=== PATIENT | female | born 1965 | race Caucasian/White ===

== ENCOUNTER 2017-09-20 19:24 | Emergency (ER) | payer BC ==
[2016-04-22 11:17] VITALS: Ht 167.6 cm; Wt 56.7 kg
[~2017-09-20] VITALS: Ht 167.6 cm; Wt 56.7 kg
[~2017-09-20 19:24] MED LIST: AMOX-362 PO; DIPH-464 PO; DIPH-740 PO; DOCU-202 PO; DOCU-416 PO; OLAN20TA20 PO; POLY17PO25 PO; [UNRECOGNIZED DRUG - CODE] IM ONLY; [UNRECOGNIZED DRUG - CODE] IM ONLY
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
[2017-09-20] MEDS ORDERED: KETOROLAC 30 MG/ML VIAL IM ONE (20:10)
--- NOTE | 2017-09-20 20:45 | RADIOLOGY IMAGING REPORT ---
FACILITY: [facility] [place] PATIENT NAME: Kay Liu : 1965 MR: [id number] V: [id number] EXAM DATE: ORDERING PHYSICIAN: TEODORA DEVLIN TECHNOLOGIST: Location: [facility] Patient: Kay Liu : 1965 Visit/Account:[id number] Date of Sevice: 09/20/2017 EXAMINATION: AP pelvis with lateral left hip HISTORY: Left upper inner thigh pain. Evaluate for avulsion fracture. COMPARISON: None. FINDINGS: Bones of the left hip demonstrate normal alignment. No evidence of fracture or dislocation. The joint space is preserved. No evidence of any avulsive fracture fragment about the left hip or bony pelvis. Remainder of the bony pelvis appears radiographically intact. Normal alignment at the right hip. IMPRESSION: No acute osseous findings at the left hip or in the bony pelvis. No evidence of an avuls ion fracture. Report Dictated By: Jose Alejandro Gamboa MD at 09/20/2017 8:39 PM Report E-Signed By: Jose Alejandro Gamboa MD at 09/20/2017 8:41 PM WSN:[id number]
[2017-09-20 21:11] VITALS: BP 128/82
== END 2017-09-20 21:16 | disposition home or self-care (01) ==
LOC: ER 19:47
DX: M76.9 Unspecified enthesopathy, lower limb, excluding foot (principal)
CPT/HCPCS: 73502; 99283; J1885

== ENCOUNTER 2017-09-22 10:03 | Emergency (ER) | payer BC ==
[2016-04-22 11:17] VITALS: Ht 167.6 cm; Wt 56.7 kg
[~2017-09-22] VITALS: Ht 167.6 cm; Wt 56.7 kg
[2017-09-22 10:13] VITALS: BP 115/99
[2017-09-22] MEDS ORDERED: KETOROLAC 60 MG/2 ML VIAL IM ONE (10:40)
--- NOTE | 2017-09-22 10:45 | ER Report ---
History and Physical Time Seen By MD: 10:40 Hx. of Stated Complaint: pt reports pain L side under groin radiating down leg HPI/ROS CC: Left upper leg pain HPI: 52-year-old female presents to the emergency department with left upper leg and thigh pain. She is able to ambulate. She was here 2 days ago for the same complaint. She most likely has a tendinitis. She is mentally challenged and will not follow up with her PCP. She is not limping but is ambulating around the emergency department without difficulty. His heart ascertain her actual pain level. She is with minimal communication. In reviewing her old chart her symptoms have not changed from 2 days ago. ROS: 12 point review of systems essentially negative other than what's mentioned in history of present illness. NURSES AND OLD MEDICAL RECORDS: Reviewed PMH: Reviewed SURGICAL HX: Reviewed FAMILY HX: Noncontributory SOCIAL HX: She denies smoking alcohol or illicit drugs. VITAL SIGNS: Reviewed CONSTITUTIONAL: 52-year-old female in minimal distress. PHYSICAL EXAM: HEENT: Pupils equal round reactive to light and accommodate, EOMI, tympanic membranes pearly white umbo present with good light reflex. Lips dry mucous membranes moist gums nonbleeding uvula midline and rises equally with phonation, oropharynx noninjected, teeth intact. NECK: Neck supple, thyroid not appreciated, anterior and posterior cervical lymphadenopathy not appreciated. Trachea midline and rises equally with phonation. CARDIAC: S1-S2 regular rate rhythm no murmurs rubs or gallops. LUNGS: Lungs clear bilaterally posteriorly in all waldrop. Good air movement. ABDOMEN: Abdomen soft, nondistended, bowel sounds active in all 4 quadrants, no bruits noted, no CVA tenderness. MUSCULOSKELETAL: Strength 5 out of 5 x 4 extremities, no deformities noted. Tenderness left inner thigh and groin area. No bruising ecchymosis, deformity, skin abscess. NEUROLOGIC: Patient alert and oriented by 3 Allergies: Coded Allergies: citric acid (Unverified Allergy, Intermediate, HIVES, 09/20/17) Sulfa (Sulfonamide Antibiotics) (Verified Allergy, Unknown, 09/20/17) codeine (Unverified Allergy, Unknown, GI DISTRESS, 09/20/17) fluoxetine HCl (Verified Allergy, Unknown, 09/20/17) Home Meds Discontinued Reported Medications Docusate Sodium (DOCUSATE SODIUM) 100 Mg Capsule, 100 MG PO QDAY, CAPSULE 04/27/16 Risperidone (RISPERDAL CONSTA) 37.5 Mg/2 Ml/Syr Syr, 37.5 MG IM ONLY Q2WK, SYR 04/27/16 Discontinued Scripts Amoxicillin (AMOXICILLIN) 500 Mg Capsule, 1 CAP PO BID, #10 CAPSULE 0 Refills Prov:MACKENZIEBELLA MD 01/04/17 Hx Smoking: Yes Smoking Status: Former Smoker, Light Tobacco Smoker Exposure to Second Hand Smoke?: Yes Hx Substance Use Disorder: No Hx Alcohol Use: Yes Constitutional Vital Sign - Last 24 Hours 09/22/17 09/22/17 09/22/17 09/22/17 10:03 10:09 10:10 10:13 Temp 98.1 Pulse ??? 106 Resp 18 B/P (MAP) 201/178 201/178 (186) 115/99 (104) Pulse Ox 96 O2 Delivery Room Air 09/22/17 09/22/17 10:18 10:33 Pulse 119 ??? Pulse Ox 95 Medical Decision Making ED Course/Re-evaluation ED Course Patient received Toradol 60 mg IM. No complications noted. Patient will be discharged to home. Re-evaluation Medical decision-making includes but not excluded to contusion, fracture, dislocation, cellulitis, abscess, pulled muscle, partial muscle tear, complete muscle tear. Decision to Disposition Date: Sep 22, 2017 Decision to Disposition Time: 11:11 Depart Departure Latest Vital Signs Vital Signs Date Time Temp Pulse Resp B/P (MAP) Pulse Ox O2 Delivery O2 Flow Rate FiO2 09/22/17 10:33 ??? 09/22/17 10:18 95 09/22/17 10:13 115/99 (104) 09/22/17 10:09 98.1 18 Room Air Impression: Primary Impression: Tendinitis Condition: Improved Disposition: HOME OR SELF-CARE New Scripts No Active Prescriptions or Reported Meds Patient Instructions: Muscle Strain (ED) Additional Instructions: Follow-up with the regular physician. I and the staff wanted to thank you for allowing us to take care of your needs today in the emergency department at [facility]. We have tried to answer all of your questions and concerns. Please feel free to return to the emergency department for any further concerns or unanswered questions. ROSEY GÓMEZ MD Sep 22, 2017 10:45
== END 2017-09-22 11:20 | disposition home or self-care (01) ==
LOC: ER 10:11
DX: M76.9 Unspecified enthesopathy, lower limb, excluding foot (principal)
CPT/HCPCS: 96372; 99283; J1885

== ENCOUNTER 2017-09-24 20:25 | Emergency (ER) | payer BC ==
[2016-04-22 11:17] VITALS: Ht 167.6 cm; Wt 56.7 kg
[~2017-09-24] VITALS: Ht 167.6 cm; Wt 56.7 kg
[2017-09-24 20:35] VITALS: BP 120/84
--- NOTE | 2017-09-24 20:35 | ER Report ---
History and Physical Time Seen By MD: 20:33 HPI/ROS CHIEF COMPLAINT: Requesting Toradol shot HISTORY OF PRESENT ILLNESS: 52-year-old female with paranoid schizophrenia for many years. She has numerous behavioral health admissions here. She was seen here 2 days ago on 09/23/17 and received a Toradol shot for right thigh and leg pain in her groin. She was also seen 2 days before that. Diagnostic left hip x -rays were unremarkable. She has not followed up with primary care. She's not taking [id number]-[id number] medication such as Naprosyn or ibuprofen. Patient has continued symptoms in this area. I am suspicious that is related to her schizophrenia. REVIEW OF SYSTEMS: Respiratory: No cough, no dyspnea. Cardiovascular: No chest pain, no palpitations. Gastrointestinal: No vomiting, no abdominal pain. Musculoskeletal: As above Allergies: Coded Allergies: citric acid (Unverified Allergy, Intermediate, HIVES, 09/20/17) Sulfa (Sulfonamide Antibiotics) (Verified Allergy, Unknown, 09/20/17) codeine (Unverified Allergy, Unknown, GI DISTRESS, 09/20/17) fluoxetine HCl (Verified Allergy, Unknown, 09/20/17) Home Meds Active Scripts Tramadol Hcl (TRAMADOL HCL) 50 Mg Tablet, 1 TAB PO Q6H Y for PAIN, #12 TAB Prov:ROSAMARIA METZ DO 09/24/17 Discontinued Reported Medications Docusate Sodium (DOCUSATE SODIUM) 100 Mg Capsule, 100 MG PO QDAY, CAPSULE 04/27/16 Risperidone (RISPERDAL CONSTA) 37.5 Mg/2 Ml/Syr Syr, 37.5 MG IM ONLY Q2WK, SYR 04/27/16 Discontinued Scripts Amoxicillin (AMOXICILLIN) 500 Mg Capsule, 1 CAP PO BID, #10 CAPSULE 0 Refills Prov:BELLA MANN MD 01/04/17 Past Medical/Surgical History Schizophrenia, chronic paranoid type. Reviewed Nurses Notes: Yes Old Medical Records Reviewed: Yes Hx Smoking: Yes Smoking Status: Former Smoker, Light Tobacco Smoker Exposure to Second Hand Smoke?: Yes Hx Substance Use Disorder: No Hx Alcohol Use: Yes Constitutional Vital Sign - Last 24 Hours 09/24/17 09/24/17 20:35 21:03 Temp 97.7 Pulse 128 117 Resp 22 B/P (MAP) 120/84 Pulse Ox 95 95 O2 Delivery Room Air Physical Exam General appearance: Alert no distress. Vital signs stable, afebrile Respiratory: Chest is non tender, lungs are clear to auscultation. Cardiac: Regular rate and rhythm Extremity: Examination of the left lower extremity reveals no clinical findings. There is no erythema, no warmth, no induration. No lymphadenopathy in the left groin. There is no pain on manipulation of the hip joint, knee or ankle. The left lower extremity is neurovascularly intact. DIFFERENTIAL DIAGNOSIS: After history and physical exam differential diagnosis was considered for sprain, strain, fracture, dislocation, contusion, arthritis, tendinitis, somatization disorder. Medical Decision Making ED Course/Re-evaluation ED Course Patient was admitted to an examination room. H&P was done. The differential diagnoses was considered. On clinical examination. Patient has no acute findings on the left lower extremity that are notable. Passive range of motion. He notes no pain or tenderness. There is no palpable tenderness. The left lower extremity is neurovascularly intact. She is treated with a Toradol injection. She is given samples of Aleve to use for pain relief at home. Decision to Disposition Date: Sep 24, 2017 Decision to Disposition Time: 20:45 Depart Departure Latest Vital Signs Vital Signs Date Time Temp Pulse Resp B/P (MAP) Pulse Ox O2 Delivery O2 Flow Rate FiO2 09/24/17 21:03 117 95 09/24/17 20:35 97.7 22 120/84 Room Air Impression: Primary Impression: Left thigh pain Condition: Improved Disposition: HOME OR SELF-CARE Referrals: LES RON MD Patient Instructions: Leg Pain (ED) Additional Instructions: You can take Aleve/Naprosyn 220 mg 1-2 tablets twice daily with food to achieve pain relief Apply heating pad to the affected area or warm compresses Follow-up with your primary care if unimproved in 3-5 days ROSAMARIA METZ DO Sep 24, 2017 20:35
[2017-09-24] MEDS ORDERED: KETOROLAC 60 MG/2 ML VIAL IM ONE (20:45)
[2017-09-24] MEDS ORDERED: TRAM-420 PO (23:00)
== END 2017-09-24 21:06 | disposition home or self-care (01) ==
LOC: ER 20:27
DX: M79.652 Pain in left thigh (principal)
CPT/HCPCS: 96372; 99282; J1885

== ENCOUNTER 2017-09-24 22:35 | Emergency (ER) | payer BC ==
[2016-04-22 11:17] VITALS: Ht 167.6 cm; Wt 56.7 kg
[~2017-09-24] VITALS: Ht 167.6 cm; Wt 56.7 kg
[2017-09-24 22:43] VITALS: BP 125/90
--- NOTE | 2017-09-24 22:54 | ER Report ---
History and Physical Time Seen By MD: 22:53 Hx. of Stated Complaint: PATIENT IS IN PAIN; PATIENT STATES SHE NEEDS SOMETHING STRONGER FOR THE PAIN; PATIENT WAS SEEN ABOUT TWO HOURS AGO TODAY FOR SAME ISSUE HPI/ROS CHIEF COMPLAINT: Left leg pain HISTORY OF PRESENT ILLNESS: 52-year-old female with a history of schizophrenia presents ambulatory to the ER after just being seen several hours ago for left thigh pain. She is requesting something stronger for pain. She states the portal injection did not help. Allergies: Coded Allergies: citric acid (Unverified Allergy, Intermediate, HIVES, 09/20/17) Sulfa (Sulfonamide Antibiotics) (Verified Allergy, Unknown, 09/20/17) codeine (Unverified Allergy, Unknown, GI DISTRESS, 09/20/17) fluoxetine HCl (Verified Allergy, Unknown, 09/20/17) Home Meds Active Scripts Tramadol Hcl (TRAMADOL HCL) 50 Mg Tablet, 1 TAB PO Q6H Y for PAIN, #12 TAB Prov:ROSAMARIA METZ DO 09/24/17 Discontinued Reported Medications Docusate Sodium (DOCUSATE SODIUM) 100 Mg Capsule, 100 MG PO QDAY, CAPSULE 04/27/16 Risperidone (RISPERDAL CONSTA) 37.5 Mg/2 Ml/Syr Syr, 37.5 MG IM ONLY Q2WK, SYR 04/27/16 Discontinued Scripts Amoxicillin (AMOXICILLIN) 500 Mg Capsule, 1 CAP PO BID, #10 CAPSULE 0 Refills Prov:BELLA MANN MD 01/04/17 Reviewed Nurses Notes: Yes Old Medical Records Reviewed: Yes Hx Smoking: Yes Smoking Status: Former Smoker, Light Tobacco Smoker Exposure to Second Hand Smoke?: Yes Hx Substance Use Disorder: No Hx Alcohol Use: Yes Constitutional Vital Sign - Last 24 Hours 09/24/17 22:43 Temp 97.6 Pulse 106 Resp 18 B/P (MAP) 125/90 Pulse Ox 98 O2 Delivery Room Air Physical Exam General appearance: Alert no distress. Respiratory: Chest is non tender, lungs are clear to auscultation. Cardiac: Regular rate and rhythm Extremities: Left hip and thigh and groin area are unremarkable for foreskin findings on palpation. There is no induration or redness. The hip joint moves freely through range of motion without difficulty. The knee and ankle are unremarkable. The left lower externally is neurovascularly intact. DIFFERENTIAL DIAGNOSIS: After history and physical exam differential diagnosis was considered for arthritis, tendinitis, schizophrenia, lymphadenopathy, DVT, muscle strain. Medical Decision Making ED Course/Re-evaluation ED Course Patient was admitted to an examination room. H&P was done. The differential diagnoses was considered. On clinical examination. Patient has a benign examination. She has a neurovascularly intact left lower extremity. I am able to elicit any pain with maneuvers and palpation. My suspicion is that the patient has schizophrenia and this is a somatization disorder. Patient will be given tramadol for temporary pain relief. Decision to Disposition Date: Sep 24, 2017 Decision to Disposition Time: 22:56 Depart Departure Latest Vital Signs Vital Signs Date Time Temp Pulse Resp B/P (MAP) Pulse Ox O2 Delivery O2 Flow Rate FiO2 09/24/17 22:43 97.6 106 18 125/90 98 Room Air Impression: Primary Impression: Left thigh pain Additional Impression: Schizophrenia Condition: Improved Disposition: HOME OR SELF-CARE New Scripts Tramadol Hcl (TRAMADOL HCL) 50 Mg Tablet 1 TAB PO Q6H Y for PAIN, #12 TAB Prov: ROSAMARIA METZ DO 09/24/17 Patient Instructions: Leg Pain (ED) Additional Instructions: Follow-up with your primary care physician or the doctor listed on your paperwork if unimproved in 3-5 days Problem Qualifiers Additional Impression: Schizophrenia Schizophrenia type: paranoid schizophrenia Qualified Codes: F20.0 - Paranoid schizophrenia ROSAMARIA METZ DO Sep 24, 2017 22:54
[2017-09-24] MEDS ORDERED: traMADol 50 MG TAB TH 2 TAB/BOTTLE PO ONE (23:00)
[2017-09-24] MEDS ORDERED: TRAM-420 PO (23:00)
== END 2017-09-24 23:05 | disposition home or self-care (01) ==
LOC: ER 22:38
DX: F20.9 Schizophrenia, unspecified (principal); M79.605 Pain in left leg
CPT/HCPCS: 99282; C9399

== ENCOUNTER 2017-09-25 09:54 | Emergency (ER) | payer BC ==
[2016-04-22 11:17] VITALS: Ht 167.6 cm; Wt 56.7 kg
[~2017-09-25] VITALS: Ht 167.6 cm; Wt 56.7 kg
[~2017-09-25 09:54] MED LIST changes: +TRAM-420 PO
[2017-09-25 10:00] VITALS: BP 132/81
--- NOTE | 2017-09-25 10:16 | ER Report ---
History and Physical Time Seen By MD: 10:00 Hx. of Stated Complaint: pt requesting toradol shot and "25 more tramadol" HPI/ROS CHIEF COMPLAINT: I want Toradol shot and 25 more tramadol HISTORY OF PRESENT ILLNESS: Patient comes in requesting sensitive medications. She says she was like a Toradol shot. She is also hoping to get 25 more tramadol. She has been in the ER multiple times recently reports ongoing pain in her left hip. Her case finishing machine adjuster was consulted from triage. She will be picked up. She has been wandering the streets of [place]. REVIEW OF SYSTEMS: Respiratory: No cough, no dyspnea. Cardiovascular: No chest pain, no palpitations. Gastrointestinal: No vomiting, no abdominal pain. Musculoskeletal: No back pain. Allergies: Coded Allergies: citric acid (Unverified Allergy, Intermediate, HIVES, 09/25/17) Sulfa (Sulfonamide Antibiotics) (Verified Allergy, Unknown, 09/25/17) codeine (Unverified Allergy, Unknown, GI DISTRESS, 09/25/17) fluoxetine HCl (Verified Allergy, Unknown, 09/25/17) Home Meds Active Scripts Tramadol Hcl (TRAMADOL HCL) 50 Mg Tablet, 1 TAB PO Q6H Y for PAIN, #12 TAB Prov:ROSAMARIA METZ DO 09/24/17 Discontinued Reported Medications Docusate Sodium (DOCUSATE SODIUM) 100 Mg Capsule, 100 MG PO QDAY, CAPSULE 04/27/16 Risperidone (RISPERDAL CONSTA) 37.5 Mg/2 Ml/Syr Syr, 37.5 MG IM ONLY Q2WK, SYR 04/27/16 Discontinued Scripts Amoxicillin (AMOXICILLIN) 500 Mg Capsule, 1 CAP PO BID, #10 CAPSULE 0 Refills Prov:BELLA MANN MD 01/04/17 Hx Smoking: Yes Smoking Status: Former Smoker, Light Tobacco Smoker Exposure to Second Hand Smoke?: Yes Hx Substance Use Disorder: No Hx Alcohol Use: Yes Constitutional Vital Sign - Last 24 Hours 09/25/17 10:00 Temp 97.5 Pulse 81 Resp 16 B/P (MAP) 132/81 Pulse Ox 96 O2 Delivery Room Air Physical Exam General Appearance: The patient is alert, has no immediate need for airway protection and no current signs of toxicity. Eyes: Pupils equal and round no injection. Respiratory: Chest is non tender, lungs are clear to auscultation. Cardiac: regular rate and rhythm no murmurs gallops or rubs Gastrointestinal: Abdomen is soft and non tender, no masses, bowel sounds normal. Musculoskeletal: Neck: Neck is supple and non tender. Extremities have full range of motion and are non tender. Skin: No rashes or lesions. No edema DIFFERENTIAL DIAGNOSIS: After history and physical exam differential diagnosis was considered for schizophrenia, schizoaffective disorder, drug-seeking behavior, medication seeking, Munchhausen syndrome. This is an incomplete list of diagnoses considered. Medical Decision Making ED Course/Re-evaluation ED Course I explained to the patient why repeat Toradol shots can be risky. I also explained to her how to obtain refills of tramadol if she feels it gets necessary. I encouraged rest to avoid exacerbation should've pulled muscle or tendinitis be present. There is no external evidence of disease at this time. Multiple ER visits recently, Of note she was seen last night in the ED waiting room by me. Decision to Disposition Date: Sep 25, 2017 Decision to Disposition Time: 11:23 Depart Departure Latest Vital Signs Vital Signs Date Time Temp Pulse Resp B/P (MAP) Pulse Ox O2 Delivery O2 Flow Rate FiO2 09/25/17 10:00 97.5 81 16 132/81 96 Room Air Impression: Primary Impression: Schizophrenia Condition: Condition Unchanged Disposition: HOME OR SELF-CARE Patient Instructions: Medicine Refill (ED) Additional Instructions: You need to see your primary doctor for further prescription refills, ongoing pain, or other concerns. TEODORA DEVLIN MD Sep 25, 2017 10:16
== END 2017-09-25 11:28 | disposition home or self-care (01) ==
LOC: ER 10:04
DX: F20.9 Schizophrenia, unspecified (principal)
CPT/HCPCS: 99282

== ENCOUNTER 2017-09-26 17:06 | Emergency (ER) | payer BC ==
[2016-04-22 11:17] VITALS: Ht 167.6 cm; Wt 56.7 kg
[~2017-09-26] VITALS: Ht 167.6 cm; Wt 56.7 kg
[2017-09-26] MEDS ORDERED: NS(*) 0.9% 1000 ML BAG 1,000 ML IV ONE (17:13)
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
[2017-09-26 17:46] LABS: PLATELET COUNT, AUTOMATED 191 K/uL (150-450)
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
--- NOTE | 2017-09-26 22:23 | RADIOLOGY IMAGING REPORT ---
FACILITY: [facility] PATIENT NAME: Kay Liu : 1965 MR: [id number] V: [id number] EXAM DATE: ORDERING PHYSICIAN: LEROY AKHTAR TECHNOLOGIST: Location: [facility] Patient: Kay Liu : 1965 Visit/Account:[id number] Date of Sevice: 09/26/2017 HIP LEFT HISTORY: new onset pain Pelvis and left hip films FINDINGS: Pelvic girdle is intact with no fractures. No acute osseous pathology. Both hip joints are well maint ained. Specifically the left hip demonstrates no fracture or acute osseous pathology. Facet joints are grossly normal. Lower lumbar spine unremarkable. No pelvic mass lesions or abnormal calcifications. IMPRESSION: 1. Negative pelvis and left hip films. Report Dictated By: Clint Vargas MD at 09/26/2017 10:16 PM Report E-Signed By: Clint Vargas MD at 09/26/2017 10:17 PM WSN:[email or web address]
[2017-09-26 23:00] VITALS: BP 101/73
[2017-09-27] MEDS ORDERED: [UNRECOGNIZED DRUG - CODE] IM ONLY (12:45)
== END 2017-09-26 23:10 ==
LOC: EDUNIT# 17:06 → ER 17:13
DX: F20.9 Schizophrenia, unspecified (principal); S00.83XA Contusion of other part of head, initial encounter; S70.02XA Contusion of left hip, initial encounter
CPT/HCPCS: 70150; 73502; 80305; 80320; 80329; 81001; 81025; 83735; 84443; 85025; 99285; J7030; 82040; 82247; 82310; 82374; 82435; 82565; 82947; 84075; 84132; 84155; 84295; 84450; 84460; 84520

== ENCOUNTER 2017-09-26 20:41 | Inpatient (IN) | payer BC ==
[2016-04-22 11:17] VITALS: Ht 167.6 cm; Wt 56.7 kg
[~2017-09-26] VITALS: Ht 167.6 cm; Wt 56.7 kg
[2017-09-27 00:16] VITALS: BP 101/72
[2017-09-27] MEDS: traMADol 50 MG TAB PO PRN ×2 (08:25→15:29)
[2017-09-27] MEDS ORDERED: LORazepam 1 MG TAB PO ONE (12:15)
[2017-09-27] MEDS ORDERED: [UNRECOGNIZED DRUG - CODE] IM ONLY (12:45)
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
[2017-09-27] MEDS: IBUPROFEN 600 MG TAB PO PRN (20:47)
[2017-09-27 21:32] VITALS: BP 115/81
[2017-09-28] MEDS: traMADol 50 MG TAB PO PRN (06:18)
[2017-09-28 06:37] VITALS: BP 100/67
[2017-09-28] MEDS ORDERED: LORazepam 1 MG TAB PO ONE (11:55)
[2017-09-28] MEDS: IBUPROFEN 600 MG TAB PO PRN (12:16)
[2017-09-28 12:20] VITALS: BP 134/86
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
[2017-09-28 18:17] VITALS: BP 115/79
[2017-09-28] MEDS: clonazePAM 0.5 MG TAB PO SCH (21:45)
[2017-09-29 06:08] VITALS: BP 108/72
[2017-09-29] MEDS: clonazePAM 0.5 MG TAB PO SCH ×2 (08:15→20:41)
--- NOTE | 2017-09-29 08:51 | BHS Progress Note ---
S - Subjective Progress Notes Subjective Client is seen while lying in bed. She is not responding verbally however makes eye contact. Suicidal Ideation: None Homicidal Ideation: None S - Objective Physical Exam Vital Signs Vital Signs 09/28/17 09/29/17 18:17 06:08 Temp 98.4 Pulse 101 Resp 16 B/P (MAP) 108/72 (84) Pulse Ox 98 O2 Delivery Room Air Muscle Strength and Tone: WNL Gait and Station: Steady [facility] Medications Reviewed: Side Effects, Benefits of Medication, Risks Allergies Reviewed: Yes Mental Status Exam General Appearance: Cooperative, Unkept, Psychomotor Retardation Speech: Other (significant paucity of speech, very low volume when she does reply in one or two word utterances) Mood: Dysthmic/Depressed Affect: Flat, Withdrawn Thought Process: Other (unable to assess) Thought Content: Delusions, Auditory Halllucinations (paranoid of food cleanliness, appears internally preoccupied.) Sensorium: Clear Cognition: Other (can't assess) Memory: Other (can't assess) Intelligence: Average Insight Judgment: Poor [facility] Assessment and Plan [id number] Encounter Date: Sep 29, 2017 [id number]-[id number]-[id number] Encounter Time: 07:45 [facility] Plan: Admit to Unit, Necessary Precautions, Individual/Group Therapy, Admin /Titrate Meds, Educate Patient Tobacco Medications: Not Appropriate Condition Problems: ERVIN HOANG NP Sep 29, 2017 08:51
[2017-09-29] MEDS: traMADol 50 MG TAB PO PRN ×2 (12:47→20:41)
[2017-09-29 13:12] VITALS: BP 101/61
[2017-09-29] MEDS: IBUPROFEN 600 MG TAB PO PRN (20:41)
[2017-09-29 23:12] VITALS: BP 122/63
[2017-09-30 06:31] VITALS: BP 90/50
[2017-09-30] MEDS: clonazePAM 0.5 MG TAB PO SCH ×2 (08:50→21:53)
[2017-09-30 12:15] VITALS: BP 101/88
[2017-09-30] MEDS: IBUPROFEN 600 MG TAB PO PRN (17:23)
[2017-09-30 17:56] VITALS: BP 109/68
[2017-10-01 06:01] VITALS: BP 103/71
[2017-10-01] MEDS: clonazePAM 0.5 MG TAB PO SCH (08:11)
[2017-10-01] MEDS ORDERED: RISPERIDONE 25 MG/2 ML IM ONLY ONE (09:00)
[2017-10-01 10:00] VITALS: BP 88/48
[2017-10-01] MEDS ORDERED: RISPERIDONE IM ONE (10:00)
[2017-10-01 12:00] VITALS: BP 98/60
[2017-10-01] MEDS: IBUPROFEN 600 MG TAB PO PRN (13:53)
--- NOTE | 2017-10-01 13:58 | BHS Progress Note ---
BHS - Subjective Progress Notes Subjective Patient very lethargic when interviewed this AM, almost entirely non-verbal. Interestingly patient had arose and ambulated into lunch room prior to interview for breakfast, and had ate well. Patient was stating "i want to stay here" in answer to question if she would like to return home. Will draw routine labs, and continue to monitor. Suicidal Ideation: None Homicidal Ideation: None [facility] - Objective Physical Exam Vital Signs Hematology Test 09/27/17 20:58 Urine Color Yellow Urine Clarity Slightly-cloudy Urine pH 6.0 pH (4.8-9.5) Urine Specific [place] 1.014 Urine Protein Negative mg/dL (NEGATIVE) Urine Glucose (UA) Negative mg/dL (NEGATIVE) Urine Ketones Negative mg/dL (NEGATIVE) Urine Blood Negative (NEGATIVE) Urine Nitrite Negative (NEGATIVE) Urine Bilirubin Negative (NEGATIVE) Urine Urobilinogen 2.0 mg/dL (0.2-1.9) Urine Leukocyte Esterase Negative (NEGATIVE) Urine RBC <1 /HPF (0-2/HPF) Urine WBC <1 /HPF (0-5/HPF) Urine Squamous Epithelial Cells None /LPF (</=FEW) Urine Amorphous Crystals Few /HPF Urine Bacteria Negative /HPF (NONE-FEW) Urine Mucus None /HPF (NONE-FEW) Chemistry Test 09/27/17 20:58 Urine Color Yellow Urine Clarity Slightly-cloudy Urine pH 6.0 pH (4.8-9.5) Urine Specific [place] 1.014 Urine Protein Negative mg/dL (NEGATIVE) Urine Glucose (UA) Negative mg/dL (NEGATIVE) Urine Ketones Negative mg/dL (NEGATIVE) Urine Blood Negative (NEGATIVE) Urine Nitrite Negative (NEGATIVE) Urine Bilirubin Negative (NEGATIVE) Urine Urobilinogen 2.0 mg/dL (0.2-1.9) Urine Leukocyte Esterase Negative (NEGATIVE) Urine RBC <1 /HPF (0-2/HPF) Urine WBC <1 /HPF (0-5/HPF) Urine Squamous Epithelial Cells None /LPF (</=FEW) Urine Amorphous Crystals Few /HPF Urine Bacteria Negative /HPF (NONE-FEW) Urine Mucus None /HPF (NONE-FEW) Urinalysis Test 09/27/17 20:58 Urine Color Yellow Urine Clarity Slightly-cloudy Urine pH 6.0 pH (4.8-9.5) Urine Specific [place] 1.014 Urine Protein Negative mg/dL (NEGATIVE) Urine Glucose (UA) Negative mg/dL (NEGATIVE) Urine Ketones Negative mg/dL (NEGATIVE) Urine Blood Negative (NEGATIVE) Urine Nitrite Negative (NEGATIVE) Urine Bilirubin Negative (NEGATIVE) Urine Urobilinogen 2.0 mg/dL (0.2-1.9) Urine Leukocyte Esterase Negative (NEGATIVE) Urine RBC <1 /HPF (0-2/HPF) Urine WBC <1 /HPF (0-5/HPF) Urine Squamous Epithelial Cells None /LPF (</=FEW) Urine Amorphous Crystals Few /HPF Urine Bacteria Negative /HPF (NONE-FEW) Urine Mucus None /HPF (NONE-FEW) Muscle Strength and Tone: WNL Gait and Station: Steady [facility] Medications Reviewed: Side Effects, Benefits of Medication, Risks Allergies Reviewed: Yes Mental Status Exam General Appearance: Cooperative, Unkept, Psychomotor Retardation Speech: Other (significant paucity of speech, very low volume when she does reply in one or two word utterances) Mood: Dysthmic/Depressed (appearing) Affect: Calm, Flat, Withdrawn Thought Process: No Loose Associations, No Flight of Ideas, Other (unable to assess) Thought Content: No Suicidal Ideation, No Homicidal Ideation, Delusions, Auditory Halllucinations (paranoid of food cleanliness, appears internally preoccupied.) Sensorium: Clear Cognition: Other (can't assess) Memory: Other (can't assess) Intelligence: Average Insight Judgment: Poor (limited by persistent mental illness) [facility] Assessment and Plan [id number] Encounter Date: Oct 01, 2017 Vfsj-[id number] Encounter Time: 10:00 [facility] Plan: Necessary Precautions, Individual/Group Therapy, Admin/Titrate Meds, Educate Patient Tobacco Medications: Not Appropriate Condition Problems: (1) Schizophrenia Status: Chronic Condition 1. Will continue to evaluate. 2. likely have to look for joint terminal attack controller care. 3. labwork Problem Qualifiers (1) Schizophrenia: Schizophrenia type: paranoid schizophrenia Qualified Codes: F20.0 - Paranoid schizophrenia JUMANA KEARNEY MD Oct 01, 2017 13:58
--- NOTE | 2017-10-01 14:47 | EKG ---
FACILITY: [facility] [place] PATIENT NAME: CAYETANO AZUL : [id number] MR: [id number] V: [id number] EXAM DATE: ORDERING PHYSICIAN: JUMANA KEARNEY TECHNOLOGIST: SHERINE Hernandez Reason : ANTIPSYCHOTIC USE Blood Pressure : / mmHG Vent. Rate : 103 BPM Atrial Rate : 103 BPM P-R Int : 132 ms QRS Dur : 086 ms QT Int : 330 ms P-R-T Axes : 078 080 077 degrees QTc Int : 432 ms Sinus tachycardia Biatrial enlargement Abnormal ECG When compared with ECG of 17-JUN-2015 08:28, Vent. rate has increased BY 37 BPM Confirmed by ALLAN CHAMBERS ([id number]) on 10/01/2017 3:52:40 PM Referred By: CAIO Confirmed By:ALLAN CHAMBERS
[2017-10-01 15:11] LABS: PLATELET COUNT, AUTOMATED 260 K/uL (150-450)
[2017-10-01] MEDS: traMADol 50 MG TAB PO PRN (17:59)
[2017-10-01] MEDS: IBUPROFEN 600 MG TAB PO SCH (21:00)
[2017-10-01 22:10] VITALS: BP 143/83
[2017-10-02 04:56] VITALS: BP 109/75
[2017-10-02] MEDS: IBUPROFEN 600 MG TAB PO SCH ×3 (08:36→20:35)
[2017-10-02 11:55] VITALS: BP 116/74
--- NOTE | 2017-10-02 13:13 | BHS Progress Note ---
BHS - Subjective Progress Notes Subjective Patient remains somewhat lethargic this AM, but arose to walk in the grajeda with minimal prompting. Patient again today verbalizing that she wants to "stay here " Will continue to address pain issues and encourage effective communication from this patient. Will start to look into nursing home care, in this patient who is in need of physical rehab. Patient cooperative on the unit, no other concerns. Suicidal Ideation: None Homicidal Ideation: None S - Objective Physical Exam Vital Signs Vital Signs Date Time Temp Pulse Resp B/P (MAP) Pulse Ox O2 Delivery O2 Flow Rate FiO2 10/02/17 11:55 99.5 95 16 116/74 (88) 98 Room Air Hematology Test 09/27/17 20:58 10/01/17 14:55 10/01/17 17:15 Urine Amorphous Crystals Few /HPF Red Blood Count 4.53 M/uL (4.17-5.56) Mean Corpuscular Volume 86.8 fL (80.0-96.0) Mean Corpuscular Hemoglobin 29.0 pg (26.0-33.0) Mean Corpuscular Hemoglobin Concent 33.4 g/dL (32.0-36.0) Red Cell Distribution Width 13.1 % (11.5-14.5) Mean Platelet Volume 8.0 fL (7.2-11.1) Neutrophils (%) (Auto) 65.2 % (39.4-72.5) Lymphocytes (%) (Auto) 26.3 % (17.6-49.6) Monocytes (%) (Auto) 6.1 % (4.1-12.4) Eosinophils (%) (Auto) 1.5 % (0.4-6.7) Basophils (%) (Auto) 0.9 % (0.3-1.4) Nucleated RBC Relative Count (auto) 0.0 /100WBC Neutrophils # (Auto) 4.1 K/uL (2.0-7.4) Lymphocytes # (Auto) 1.7 K/uL (1.3-3.6) Monocytes # (Auto) 0.4 K/uL (0.3-1.0) Eosinophils # (Auto) 0.1 K/uL (0.0-0.5) Basophils # (Auto) 0.1 K/uL (0.0-0.1) Nucleated RBC Absolute Count (auto) 0.00 K/uL Sodium Level 141 mmol/L (137-145) Potassium Level 3.9 mmol/L (3.5-5.0) Chloride Level 105 mmol/L (98-107) Carbon Dioxide Level 23 mmol/L (22-31) Blood Urea Nitrogen 18 mg/dl (7-18) Creatinine 0.60 mg/dl (0.52-1.04) Glomerular Filtration Rate Calc > 60.0 Random Glucose 126 mg/dl (75-110) Calcium Level 10.1 mg/dl (8.4-10.2) Magnesium Level 1.8 mg/dl (1.7-2.2) Total Bilirubin 0.3 mg/dl (0.2-1.3) Aspartate Amino Transf (AST/SGOT) 23 U/L (0-35) Alanine Aminotransferase (ALT/SGPT) 28 U/L (0-56) Alkaline Phosphatase 132 U/L (0-126) Total Protein 6.9 gm/dl (6.3-8.2) Albumin 3.7 g/dl (3.5-5.0) Urine Color Straw Urine Clarity Clear Urine pH 5.0 pH (4.8-9.5) Urine Specific [place] 1.009 Urine Protein Negative mg/dL (NEGATIVE) Urine Glucose (UA) Negative mg/dL (NEGATIVE) Urine Ketones Negative mg/dL (NEGATIVE) Urine Blood Negative (NEGATIVE) Urine Nitrite Negative (NEGATIVE) Urine Bilirubin Negative (NEGATIVE) Urine Urobilinogen Negative mg/dL (0.2-1.9) Urine Leukocyte Esterase Negative (NEGATIVE) Urine RBC 1 /HPF (0-2/HPF) Urine WBC 1 /HPF (0-5/HPF) Urine Squamous Epithelial Cells None /LPF (</=FEW) Urine Bacteria Few /HPF (NONE-FEW) Urine Hyaline Casts Few /LPF (NONE-FEW) Urine Mucus Few /HPF (NONE-FEW) Chemistry Test 09/27/17 20:58 10/01/17 14:55 10/01/17 17:15 Urine Amorphous Crystals Few /HPF White Blood Count 6.3 k/uL (4.5-11.0) Red Blood Count 4.53 M/uL (4.17-5.56) Hemoglobin 13.1 g/dL (12.0-16.0) Hematocrit 39.3 % (34.0-47.0) Mean Corpuscular Volume 86.8 fL (80.0-96.0) Mean Corpuscular Hemoglobin 29.0 pg (26.0-33.0) Mean Corpuscular Hemoglobin Concent 33.4 g/dL (32.0-36.0) Red Cell Distribution Width 13.1 % (11.5-14.5) Platelet Count 260 K/uL (150-450) Mean Platelet Volume 8.0 fL (7.2-11.1) Neutrophils (%) (Auto) 65.2 % (39.4-72.5) Lymphocytes (%) (Auto) 26.3 % (17.6-49.6) Monocytes (%) (Auto) 6.1 % (4.1-12.4) Eosinophils (%) (Auto) 1.5 % (0.4-6.7) Basophils (%) (Auto) 0.9 % (0.3-1.4) Nucleated RBC Relative Count (auto) 0.0 /100WBC Neutrophils # (Auto) 4.1 K/uL (2.0-7.4) Lymphocytes # (Auto) 1.7 K/uL (1.3-3.6) Monocytes # (Auto) 0.4 K/uL (0.3-1.0) Eosinophils # (Auto) 0.1 K/uL (0.0-0.5) Basophils # (Auto) 0.1 K/uL (0.0-0.1) Nucleated RBC Absolute Count (auto) 0.00 K/uL Glomerular Filtration Rate Calc > 60.0 Calcium Level 10.1 mg/dl (8.4-10.2) Magnesium Level 1.8 mg/dl (1.7-2.2) Total Bilirubin 0.3 mg/dl (0.2-1.3) Aspartate Amino Transf (AST/SGOT) 23 U/L (0-35) Alanine Aminotransferase (ALT/SGPT) 28 U/L (0-56) Alkaline Phosphatase 132 U/L (0-126) Total Protein 6.9 gm/dl (6.3-8.2) Albumin 3.7 g/dl (3.5-5.0) Urine Color Straw Urine Clarity Clear Urine pH 5.0 pH (4.8-9.5) Urine Specific [place] 1.009 Urine Protein Negative mg/dL (NEGATIVE) Urine Glucose (UA) Negative mg/dL (NEGATIVE) Urine Ketones Negative mg/dL (NEGATIVE) Urine Blood Negative (NEGATIVE) Urine Nitrite Negative (NEGATIVE) Urine Bilirubin Negative (NEGATIVE) Urine Urobilinogen Negative mg/dL (0.2-1.9) Urine Leukocyte Esterase Negative (NEGATIVE) Urine RBC 1 /HPF (0-2/HPF) Urine WBC 1 /HPF (0-5/HPF) Urine Squamous Epithelial Cells None /LPF (</=FEW) Urine Bacteria Few /HPF (NONE-FEW) Urine Hyaline Casts Few /LPF (NONE-FEW) Urine Mucus Few /HPF (NONE-FEW) Urinalysis Test 09/27/17 20:58 10/01/17 17:15 Urine Amorphous Crystals Few /HPF Urine Color Straw Urine Clarity Clear Urine pH 5.0 pH (4.8-9.5) Urine Specific [place] 1.009 Urine Protein Negative mg/dL (NEGATIVE) Urine Glucose (UA) Negative mg/dL (NEGATIVE) Urine Ketones Negative mg/dL (NEGATIVE) Urine Blood Negative (NEGATIVE) Urine Nitrite Negative (NEGATIVE) Urine Bilirubin Negative (NEGATIVE) Urine Urobilinogen Negative mg/dL (0.2-1.9) Urine Leukocyte Esterase Negative (NEGATIVE) Urine RBC 1 /HPF (0-2/HPF) Urine WBC 1 /HPF (0-5/HPF) Urine Squamous Epithelial Cells None /LPF (</=FEW) Urine Bacteria Few /HPF (NONE-FEW) Urine Hyaline Casts Few /LPF (NONE-FEW) Urine Mucus Few /HPF (NONE-FEW) Muscle Strength and Tone: WNL Gait and Station: Steady [facility] Medications Reviewed: Side Effects, Benefits of Medication, Risks Allergies Reviewed: Yes Mental Status Exam General Appearance: Cooperative, Unkept, Psychomotor Retardation Speech: Other (significant paucity of speech, very low volume when she does reply in one or two word utterances) Mood: Dysthmic/Depressed (appearing) Affect: Calm, Flat, Withdrawn Thought Process: No Loose Associations, No Flight of Ideas, Other (unable to assess) Thought Content: No Suicidal Ideation, No Homicidal Ideation, Delusions, Auditory Halllucinations (paranoid of food cleanliness, appears internally preoccupied.) Sensorium: Clear Cognition: Other (can't assess) Memory: Other (can't assess) Intelligence: Average Insight Judgment: Poor (limited by persistent mental illness) Result Diagram: 10/01/17 1455 10/01/17 1455 [facility] Assessment and Plan [id number] Encounter Date: Oct 02, 2017 Nanj-nx-Nyui Encounter Time: 13:10 [facility] Plan: Necessary Precautions, Individual/Group Therapy, Admin/Titrate Meds, Educate Patient Tobacco Medications: Not Appropriate Condition Problems: (1) Schizophrenia Status: Chronic Condition 1. continue treatment. 2. look into terminal gauger supervisor care options. Problem Qualifiers (1) Schizophrenia: Schizophrenia type: paranoid schizophrenia Qualified Codes: F20.0 - Paranoid schizophrenia JUMANA KEARNEY MD Oct 02, 2017 13:13
[2017-10-03 06:08] VITALS: BP 105/71
[2017-10-03] MEDS: IBUPROFEN 600 MG TAB PO SCH ×3 (08:17→20:56)
[2017-10-03] MEDS: PATIENT'S OWN MED TD PRN (09:52)
--- NOTE | 2017-10-03 10:48 | BHS Progress Note ---
BHS - Subjective Progress Notes Subjective Patient remains somewhat psychomotor retarded today, but ambulating better, and appetite good. Will continue to look into prison care rehab options. No medications today, spoke with guardian brother who is in agreement. Patient working with PT as well. No other concerns Suicidal Ideation: None Homicidal Ideation: None S - Objective Physical Exam Vital Signs Hematology Test 09/27/17 20:58 10/01/17 14:55 10/01/17 17:15 Urine Amorphous Crystals Few /HPF Red Blood Count 4.53 M/uL (4.17-5.56) Mean Corpuscular Volume 86.8 fL (80.0-96.0) Mean Corpuscular Hemoglobin 29.0 pg (26.0-33.0) Mean Corpuscular Hemoglobin Concent 33.4 g/dL (32.0-36.0) Red Cell Distribution Width 13.1 % (11.5-14.5) Mean Platelet Volume 8.0 fL (7.2-11.1) Neutrophils (%) (Auto) 65.2 % (39.4-72.5) Lymphocytes (%) (Auto) 26.3 % (17.6-49.6) Monocytes (%) (Auto) 6.1 % (4.1-12.4) Eosinophils (%) (Auto) 1.5 % (0.4-6.7) Basophils (%) (Auto) 0.9 % (0.3-1.4) Nucleated RBC Relative Count (auto) 0.0 /100WBC Neutrophils # (Auto) 4.1 K/uL (2.0-7.4) Lymphocytes # (Auto) 1.7 K/uL (1.3-3.6) Monocytes # (Auto) 0.4 K/uL (0.3-1.0) Eosinophils # (Auto) 0.1 K/uL (0.0-0.5) Basophils # (Auto) 0.1 K/uL (0.0-0.1) Nucleated RBC Absolute Count (auto) 0.00 K/uL Sodium Level 141 mmol/L (137-145) Potassium Level 3.9 mmol/L (3.5-5.0) Chloride Level 105 mmol/L (98-107) Carbon Dioxide Level 23 mmol/L (22-31) Blood Urea Nitrogen 18 mg/dl (7-18) Creatinine 0.60 mg/dl (0.52-1.04) Glomerular Filtration Rate Calc > 60.0 Random Glucose 126 mg/dl (75-110) Calcium Level 10.1 mg/dl (8.4-10.2) Magnesium Level 1.8 mg/dl (1.7-2.2) Total Bilirubin 0.3 mg/dl (0.2-1.3) Aspartate Amino Transf (AST/SGOT) 23 U/L (0-35) Alanine Aminotransferase (ALT/SGPT) 28 U/L (0-56) Alkaline Phosphatase 132 U/L (0-126) Total Protein 6.9 gm/dl (6.3-8.2) Albumin 3.7 g/dl (3.5-5.0) Urine Color Straw Urine Clarity Clear Urine pH 5.0 pH (4.8-9.5) Urine Specific [place] 1.009 Urine Protein Negative mg/dL (NEGATIVE) Urine Glucose (UA) Negative mg/dL (NEGATIVE) Urine Ketones Negative mg/dL (NEGATIVE) Urine Blood Negative (NEGATIVE) Urine Nitrite Negative (NEGATIVE) Urine Bilirubin Negative (NEGATIVE) Urine Urobilinogen Negative mg/dL (0.2-1.9) Urine Leukocyte Esterase Negative (NEGATIVE) Urine RBC 1 /HPF (0-2/HPF) Urine WBC 1 /HPF (0-5/HPF) Urine Squamous Epithelial Cells None /LPF (</=FEW) Urine Bacteria Few /HPF (NONE-FEW) Urine Hyaline Casts Few /LPF (NONE-FEW) Urine Mucus Few /HPF (NONE-FEW) Chemistry Test 09/27/17 20:58 10/01/17 14:55 10/01/17 17:15 Urine Amorphous Crystals Few /HPF White Blood Count 6.3 k/uL (4.5-11.0) Red Blood Count 4.53 M/uL (4.17-5.56) Hemoglobin 13.1 g/dL (12.0-16.0) Hematocrit 39.3 % (34.0-47.0) Mean Corpuscular Volume 86.8 fL (80.0-96.0) Mean Corpuscular Hemoglobin 29.0 pg (26.0-33.0) Mean Corpuscular Hemoglobin Concent 33.4 g/dL (32.0-36.0) Red Cell Distribution Width 13.1 % (11.5-14.5) Platelet Count 260 K/uL (150-450) Mean Platelet Volume 8.0 fL (7.2-11.1) Neutrophils (%) (Auto) 65.2 % (39.4-72.5) Lymphocytes (%) (Auto) 26.3 % (17.6-49.6) Monocytes (%) (Auto) 6.1 % (4.1-12.4) Eosinophils (%) (Auto) 1.5 % (0.4-6.7) Basophils (%) (Auto) 0.9 % (0.3-1.4) Nucleated RBC Relative Count (auto) 0.0 /100WBC Neutrophils # (Auto) 4.1 K/uL (2.0-7.4) Lymphocytes # (Auto) 1.7 K/uL (1.3-3.6) Monocytes # (Auto) 0.4 K/uL (0.3-1.0) Eosinophils # (Auto) 0.1 K/uL (0.0-0.5) Basophils # (Auto) 0.1 K/uL (0.0-0.1) Nucleated RBC Absolute Count (auto) 0.00 K/uL Glomerular Filtration Rate Calc > 60.0 Calcium Level 10.1 mg/dl (8.4-10.2) Magnesium Level 1.8 mg/dl (1.7-2.2) Total Bilirubin 0.3 mg/dl (0.2-1.3) Aspartate Amino Transf (AST/SGOT) 23 U/L (0-35) Alanine Aminotransferase (ALT/SGPT) 28 U/L (0-56) Alkaline Phosphatase 132 U/L (0-126) Total Protein 6.9 gm/dl (6.3-8.2) Albumin 3.7 g/dl (3.5-5.0) Urine Color Straw Urine Clarity Clear Urine pH 5.0 pH (4.8-9.5) Urine Specific [place] 1.009 Urine Protein Negative mg/dL (NEGATIVE) Urine Glucose (UA) Negative mg/dL (NEGATIVE) Urine Ketones Negative mg/dL (NEGATIVE) Urine Blood Negative (NEGATIVE) Urine Nitrite Negative (NEGATIVE) Urine Bilirubin Negative (NEGATIVE) Urine Urobilinogen Negative mg/dL (0.2-1.9) Urine Leukocyte Esterase Negative (NEGATIVE) Urine RBC 1 /HPF (0-2/HPF) Urine WBC 1 /HPF (0-5/HPF) Urine Squamous Epithelial Cells None /LPF (</=FEW) Urine Bacteria Few /HPF (NONE-FEW) Urine Hyaline Casts Few /LPF (NONE-FEW) Urine Mucus Few /HPF (NONE-FEW) Urinalysis Test 09/27/17 20:58 10/01/17 17:15 Urine Amorphous Crystals Few /HPF Urine Color Straw Urine Clarity Clear Urine pH 5.0 pH (4.8-9.5) Urine Specific [place] 1.009 Urine Protein Negative mg/dL (NEGATIVE) Urine Glucose (UA) Negative mg/dL (NEGATIVE) Urine Ketones Negative mg/dL (NEGATIVE) Urine Blood Negative (NEGATIVE) Urine Nitrite Negative (NEGATIVE) Urine Bilirubin Negative (NEGATIVE) Urine Urobilinogen Negative mg/dL (0.2-1.9) Urine Leukocyte Esterase Negative (NEGATIVE) Urine RBC 1 /HPF (0-2/HPF) Urine WBC 1 /HPF (0-5/HPF) Urine Squamous Epithelial Cells None /LPF (</=FEW) Urine Bacteria Few /HPF (NONE-FEW) Urine Hyaline Casts Few /LPF (NONE-FEW) Urine Mucus Few /HPF (NONE-FEW) Hematology Test 09/27/17 20:58 10/01/17 14:55 10/01/17 17:15 Urine Amorphous Crystals Few /HPF Red Blood Count 4.53 M/uL (4.17-5.56) Mean Corpuscular Volume 86.8 fL (80.0-96.0) Mean Corpuscular Hemoglobin 29.0 pg (26.0-33.0) Mean Corpuscular Hemoglobin Concent 33.4 g/dL (32.0-36.0) Red Cell Distribution Width 13.1 % (11.5-14.5) Mean Platelet Volume 8.0 fL (7.2-11.1) Neutrophils (%) (Auto) 65.2 % (39.4-72.5) Lymphocytes (%) (Auto) 26.3 % (17.6-49.6) Monocytes (%) (Auto) 6.1 % (4.1-12.4) Eosinophils (%) (Auto) 1.5 % (0.4-6.7) Basophils (%) (Auto) 0.9 % (0.3-1.4) Nucleated RBC Relative Count (auto) 0.0 /100WBC Neutrophils # (Auto) 4.1 K/uL (2.0-7.4) Lymphocytes # (Auto) 1.7 K/uL (1.3-3.6) Monocytes # (Auto) 0.4 K/uL (0.3-1.0) Eosinophils # (Auto) 0.1 K/uL (0.0-0.5) Basophils # (Auto) 0.1 K/uL (0.0-0.1) Nucleated RBC Absolute Count (auto) 0.00 K/uL Sodium Level 141 mmol/L (137-145) Potassium Level 3.9 mmol/L (3.5-5.0) Chloride Level 105 mmol/L (98-107) Carbon Dioxide Level 23 mmol/L (22-31) Blood Urea Nitrogen 18 mg/dl (7-18) Creatinine 0.60 mg/dl (0.52-1.04) Glomerular Filtration Rate Calc > 60.0 Random Glucose 126 mg/dl (75-110) Calcium Level 10.1 mg/dl (8.4-10.2) Magnesium Level 1.8 mg/dl (1.7-2.2) Total Bilirubin 0.3 mg/dl (0.2-1.3) Aspartate Amino Transf (AST/SGOT) 23 U/L (0-35) Alanine Aminotransferase (ALT/SGPT) 28 U/L (0-56) Alkaline Phosphatase 132 U/L (0-126) Total Protein 6.9 gm/dl (6.3-8.2) Albumin 3.7 g/dl (3.5-5.0) Urine Color Straw Urine Clarity Clear Urine pH 5.0 pH (4.8-9.5) Urine Specific [place] 1.009 Urine Protein Negative mg/dL (NEGATIVE) Urine Glucose (UA) Negative mg/dL (NEGATIVE) Urine Ketones Negative mg/dL (NEGATIVE) Urine Blood Negative (NEGATIVE) Urine Nitrite Negative (NEGATIVE) Urine Bilirubin Negative (NEGATIVE) Urine Urobilinogen Negative mg/dL (0.2-1.9) Urine Leukocyte Esterase Negative (NEGATIVE) Urine RBC 1 /HPF (0-2/HPF) Urine WBC 1 /HPF (0-5/HPF) Urine Squamous Epithelial Cells None /LPF (</=FEW) Urine Bacteria Few /HPF (NONE-FEW) Urine Hyaline Casts Few /LPF (NONE-FEW) Urine Mucus Few /HPF (NONE-FEW) Chemistry Test 09/27/17 20:58 10/01/17 14:55 10/01/17 17:15 Urine Amorphous Crystals Few /HPF White Blood Count 6.3 k/uL (4.5-11.0) Red Blood Count 4.53 M/uL (4.17-5.56) Hemoglobin 13.1 g/dL (12.0-16.0) Hematocrit 39.3 % (34.0-47.0) Mean Corpuscular Volume 86.8 fL (80.0-96.0) Mean Corpuscular Hemoglobin 29.0 pg (26.0-33.0) Mean Corpuscular Hemoglobin Concent 33.4 g/dL (32.0-36.0) Red Cell Distribution Width 13.1 % (11.5-14.5) Platelet Count 260 K/uL (150-450) Mean Platelet Volume 8.0 fL (7.2-11.1) Neutrophils (%) (Auto) 65.2 % (39.4-72.5) Lymphocytes (%) (Auto) 26.3 % (17.6-49.6) Monocytes (%) (Auto) 6.1 % (4.1-12.4) Eosinophils (%) (Auto) 1.5 % (0.4-6.7) Basophils (%) (Auto) 0.9 % (0.3-1.4) Nucleated RBC Relative Count (auto) 0.0 /100WBC Neutrophils # (Auto) 4.1 K/uL (2.0-7.4) Lymphocytes # (Auto) 1.7 K/uL (1.3-3.6) Monocytes # (Auto) 0.4 K/uL (0.3-1.0) Eosinophils # (Auto) 0.1 K/uL (0.0-0.5) Basophils # (Auto) 0.1 K/uL (0.0-0.1) Nucleated RBC Absolute Count (auto) 0.00 K/uL Glomerular Filtration Rate Calc > 60.0 Calcium Level 10.1 mg/dl (8.4-10.2) Magnesium Level 1.8 mg/dl (1.7-2.2) Total Bilirubin 0.3 mg/dl (0.2-1.3) Aspartate Amino Transf (AST/SGOT) 23 U/L (0-35) Alanine Aminotransferase (ALT/SGPT) 28 U/L (0-56) Alkaline Phosphatase 132 U/L (0-126) Total Protein 6.9 gm/dl (6.3-8.2) Albumin 3.7 g/dl (3.5-5.0) Urine Color Straw Urine Clarity Clear Urine pH 5.0 pH (4.8-9.5) Urine Specific [place] 1.009 Urine Protein Negative mg/dL (NEGATIVE) Urine Glucose (UA) Negative mg/dL (NEGATIVE) Urine Ketones Negative mg/dL (NEGATIVE) Urine Blood Negative (NEGATIVE) Urine Nitrite Negative (NEGATIVE) Urine Bilirubin Negative (NEGATIVE) Urine Urobilinogen Negative mg/dL (0.2-1.9) Urine Leukocyte Esterase Negative (NEGATIVE) Urine RBC 1 /HPF (0-2/HPF) Urine WBC 1 /HPF (0-5/HPF) Urine Squamous Epithelial Cells None /LPF (</=FEW) Urine Bacteria Few /HPF (NONE-FEW) Urine Hyaline Casts Few /LPF (NONE-FEW) Urine Mucus Few /HPF (NONE-FEW) Urinalysis Test 09/27/17 20:58 10/01/17 17:15 Urine Amorphous Crystals Few /HPF Urine Color Straw Urine Clarity Clear Urine pH 5.0 pH (4.8-9.5) Urine Specific [place] 1.009 Urine Protein Negative mg/dL (NEGATIVE) Urine Glucose (UA) Negative mg/dL (NEGATIVE) Urine Ketones Negative mg/dL (NEGATIVE) Urine Blood Negative (NEGATIVE) Urine Nitrite Negative (NEGATIVE) Urine Bilirubin Negative (NEGATIVE) Urine Urobilinogen Negative mg/dL (0.2-1.9) Urine Leukocyte Esterase Negative (NEGATIVE) Urine RBC 1 /HPF (0-2/HPF) Urine WBC 1 /HPF (0-5/HPF) Urine Squamous Epithelial Cells None /LPF (</=FEW) Urine Bacteria Few /HPF (NONE-FEW) Urine Hyaline Casts Few /LPF (NONE-FEW) Urine Mucus Few /HPF (NONE-FEW) Muscle Strength and Tone: WNL Gait and Station: Steady [facility] Medications Reviewed: Side Effects, Benefits of Medication, Risks Allergies Reviewed: Yes Mental Status Exam General Appearance: Cooperative, Unkept, Psychomotor Retardation Speech: Other (significant paucity of speech, very low volume when she does reply in one or two word utterances) Mood: Dysthmic/Depressed (appearing) Affect: Calm, Flat, Withdrawn Thought Process: No Loose Associations, No Flight of Ideas, Other (unable to assess) Thought Content: No Suicidal Ideation, No Homicidal Ideation, Delusions, Auditory Halllucinations (paranoid of food cleanliness, appears internally preoccupied.) Sensorium: Clear Cognition: Other (can't assess) Memory: Other (can't assess) Intelligence: Average Insight Judgment: Poor (limited by persistent mental illness) Result Diagram: 10/01/17 1455 10/01/17 1455 [facility] Assessment and Plan [id number] Encounter Date: Oct 03, 2017 [id number] Encounter Time: 10:30 [facility] Plan: Necessary Precautions, Individual/Group Therapy, Admin/Titrate Meds, Educate Patient Tobacco Medications: Not Appropriate Condition Problems: (1) Schizophrenia Status: Chronic Condition 1. 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 2. no medication changes. Problem Qualifiers (1) Schizophrenia: Schizophrenia type: paranoid schizophrenia Qualified Codes: F20.0 - Paranoid schizophrenia JUMANA KEARNEY MD Oct 03, 2017 10:48
[2017-10-04 05:45] VITALS: BP 110/71
[2017-10-04] MEDS: PATIENT'S OWN MED TD PRN (08:29)
[2017-10-04] MEDS: IBUPROFEN 600 MG TAB PO SCH ×3 (08:30→20:41)
[2017-10-04 08:45] VITALS: BP 115/86
--- NOTE | 2017-10-04 11:17 | BHS Progress Note ---
BHS - Subjective Progress Notes Subjective Patient continues to state that she wants to remain here, and not able or unwilling to communicate the reasons as to why. Ambulation continues to improve , appetite and sleep are good. Will continue to look into care home care options to address continued physical rehab. Psychosis appears to be baseline in this well known patient. No other concerns. Suicidal Ideation: None Homicidal Ideation: None [facility] - Objective Physical Exam Vital Signs Vital Signs Date Time Temp Pulse Resp B/P (MAP) Pulse Ox O2 Delivery O2 Flow Rate FiO2 10/04/17 08:45 98.6 102 115/86 (96) 96 Room Air 10/04/17 05:45 15 Hematology Test 09/27/17 20:58 10/01/17 14:55 10/01/17 17:15 Urine Amorphous Crystals Few /HPF Red Blood Count 4.53 M/uL (4.17-5.56) Mean Corpuscular Volume 86.8 fL (80.0-96.0) Mean Corpuscular Hemoglobin 29.0 pg (26.0-33.0) Mean Corpuscular Hemoglobin Concent 33.4 g/dL (32.0-36.0) Red Cell Distribution Width 13.1 % (11.5-14.5) Mean Platelet Volume 8.0 fL (7.2-11.1) Neutrophils (%) (Auto) 65.2 % (39.4-72.5) Lymphocytes (%) (Auto) 26.3 % (17.6-49.6) Monocytes (%) (Auto) 6.1 % (4.1-12.4) Eosinophils (%) (Auto) 1.5 % (0.4-6.7) Basophils (%) (Auto) 0.9 % (0.3-1.4) Nucleated RBC Relative Count (auto) 0.0 /100WBC Neutrophils # (Auto) 4.1 K/uL (2.0-7.4) Lymphocytes # (Auto) 1.7 K/uL (1.3-3.6) Monocytes # (Auto) 0.4 K/uL (0.3-1.0) Eosinophils # (Auto) 0.1 K/uL (0.0-0.5) Basophils # (Auto) 0.1 K/uL (0.0-0.1) Nucleated RBC Absolute Count (auto) 0.00 K/uL Sodium Level 141 mmol/L (137-145) Potassium Level 3.9 mmol/L (3.5-5.0) Chloride Level 105 mmol/L (98-107) Carbon Dioxide Level 23 mmol/L (22-31) Blood Urea Nitrogen 18 mg/dl (7-18) Creatinine 0.60 mg/dl (0.52-1.04) Glomerular Filtration Rate Calc > 60.0 Random Glucose 126 mg/dl (75-110) Calcium Level 10.1 mg/dl (8.4-10.2) Magnesium Level 1.8 mg/dl (1.7-2.2) Total Bilirubin 0.3 mg/dl (0.2-1.3) Aspartate Amino Transf (AST/SGOT) 23 U/L (0-35) Alanine Aminotransferase (ALT/SGPT) 28 U/L (0-56) Alkaline Phosphatase 132 U/L (0-126) Total Protein 6.9 gm/dl (6.3-8.2) Albumin 3.7 g/dl (3.5-5.0) Urine Color Straw Urine Clarity Clear Urine pH 5.0 pH (4.8-9.5) Urine Specific [place] 1.009 Urine Protein Negative mg/dL (NEGATIVE) Urine Glucose (UA) Negative mg/dL (NEGATIVE) Urine Ketones Negative mg/dL (NEGATIVE) Urine Blood Negative (NEGATIVE) Urine Nitrite Negative (NEGATIVE) Urine Bilirubin Negative (NEGATIVE) Urine Urobilinogen Negative mg/dL (0.2-1.9) Urine Leukocyte Esterase Negative (NEGATIVE) Urine RBC 1 /HPF (0-2/HPF) Urine WBC 1 /HPF (0-5/HPF) Urine Squamous Epithelial Cells None /LPF (</=FEW) Urine Bacteria Few /HPF (NONE-FEW) Urine Hyaline Casts Few /LPF (NONE-FEW) Urine Mucus Few /HPF (NONE-FEW) Chemistry Test 09/27/17 20:58 10/01/17 14:55 10/01/17 17:15 Urine Amorphous Crystals Few /HPF White Blood Count 6.3 k/uL (4.5-11.0) Red Blood Count 4.53 M/uL (4.17-5.56) Hemoglobin 13.1 g/dL (12.0-16.0) Hematocrit 39.3 % (34.0-47.0) Mean Corpuscular Volume 86.8 fL (80.0-96.0) Mean Corpuscular Hemoglobin 29.0 pg (26.0-33.0) Mean Corpuscular Hemoglobin Concent 33.4 g/dL (32.0-36.0) Red Cell Distribution Width 13.1 % (11.5-14.5) Platelet Count 260 K/uL (150-450) Mean Platelet Volume 8.0 fL (7.2-11.1) Neutrophils (%) (Auto) 65.2 % (39.4-72.5) Lymphocytes (%) (Auto) 26.3 % (17.6-49.6) Monocytes (%) (Auto) 6.1 % (4.1-12.4) Eosinophils (%) (Auto) 1.5 % (0.4-6.7) Basophils (%) (Auto) 0.9 % (0.3-1.4) Nucleated RBC Relative Count (auto) 0.0 /100WBC Neutrophils # (Auto) 4.1 K/uL (2.0-7.4) Lymphocytes # (Auto) 1.7 K/uL (1.3-3.6) Monocytes # (Auto) 0.4 K/uL (0.3-1.0) Eosinophils # (Auto) 0.1 K/uL (0.0-0.5) Basophils # (Auto) 0.1 K/uL (0.0-0.1) Nucleated RBC Absolute Count (auto) 0.00 K/uL Glomerular Filtration Rate Calc > 60.0 Calcium Level 10.1 mg/dl (8.4-10.2) Magnesium Level 1.8 mg/dl (1.7-2.2) Total Bilirubin 0.3 mg/dl (0.2-1.3) Aspartate Amino Transf (AST/SGOT) 23 U/L (0-35) Alanine Aminotransferase (ALT/SGPT) 28 U/L (0-56) Alkaline Phosphatase 132 U/L (0-126) Total Protein 6.9 gm/dl (6.3-8.2) Albumin 3.7 g/dl (3.5-5.0) Urine Color Straw Urine Clarity Clear Urine pH 5.0 pH (4.8-9.5) Urine Specific [place] 1.009 Urine Protein Negative mg/dL (NEGATIVE) Urine Glucose (UA) Negative mg/dL (NEGATIVE) Urine Ketones Negative mg/dL (NEGATIVE) Urine Blood Negative (NEGATIVE) Urine Nitrite Negative (NEGATIVE) Urine Bilirubin Negative (NEGATIVE) Urine Urobilinogen Negative mg/dL (0.2-1.9) Urine Leukocyte Esterase Negative (NEGATIVE) Urine RBC 1 /HPF (0-2/HPF) Urine WBC 1 /HPF (0-5/HPF) Urine Squamous Epithelial Cells None /LPF (</=FEW) Urine Bacteria Few /HPF (NONE-FEW) Urine Hyaline Casts Few /LPF (NONE-FEW) Urine Mucus Few /HPF (NONE-FEW) Urinalysis Test 09/27/17 20:58 10/01/17 17:15 Urine Amorphous Crystals Few /HPF Urine Color Straw Urine Clarity Clear Urine pH 5.0 pH (4.8-9.5) Urine Specific [place] 1.009 Urine Protein Negative mg/dL (NEGATIVE) Urine Glucose (UA) Negative mg/dL (NEGATIVE) Urine Ketones Negative mg/dL (NEGATIVE) Urine Blood Negative (NEGATIVE) Urine Nitrite Negative (NEGATIVE) Urine Bilirubin Negative (NEGATIVE) Urine Urobilinogen Negative mg/dL (0.2-1.9) Urine Leukocyte Esterase Negative (NEGATIVE) Urine RBC 1 /HPF (0-2/HPF) Urine WBC 1 /HPF (0-5/HPF) Urine Squamous Epithelial Cells None /LPF (</=FEW) Urine Bacteria Few /HPF (NONE-FEW) Urine Hyaline Casts Few /LPF (NONE-FEW) Urine Mucus Few /HPF (NONE-FEW) Muscle Strength and Tone: WNL Gait and Station: Steady [facility] Medications Reviewed: Side Effects, Benefits of Medication, Risks Allergies Reviewed: Yes Mental Status Exam General Appearance: Cooperative, Unkept, No Tearful, No Psychomotor Agitation, Psychomotor Retardation, Bizarre Mannerisms (associatedd with underlying well established psychotic disorder) Speech: Other (significant paucity of speech, very low volume when she does reply in one or two word utterances) Mood: Dysthmic/Depressed (appearing) Affect: Calm, Flat, Withdrawn Thought Process: Goal Directed ("I want to stay here"), No Loose Associations, No Flight of Ideas, Other (unable to assess) Thought Content: No Suicidal Ideation, No Homicidal Ideation, Delusions, Auditory Halllucinations ( appears internally preoccupied.), No Obsessions, No Compulsions Sensorium: Clear Cognition: Other (can't fully assess) Memory: Other (can't fully assess, but appears intact) Intelligence: Average Insight Judgment: Poor (limited by persistent mental illness) Result Diagram: 10/01/17 1455 10/01/17 1455 [facility] Assessment and Plan [id number] Encounter Date: Oct 04, 2017 [id number] Encounter Time: 10:30 [facility] Plan: Necessary Precautions, Individual/Group Therapy, Admin/Titrate Meds, Educate Patient Tobacco Medications: Not Appropriate Condition Problems: (1) Schizophrenia Status: Chronic Condition 1. continue treatment. 2. 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 Problem Qualifiers (1) Schizophrenia: Schizophrenia type: paranoid schizophrenia Qualified Codes: F20.0 - Paranoid schizophrenia JUMANA KEARNEY MD Oct 04, 2017 11:17
[2017-10-04 21:16] VITALS: BP_SYST 116; BP_SYST 125; BP_DIAS 82; BP_DIAS 92; BP_DIAS 94
[2017-10-05 03:01] VITALS: BP 142/89
[2017-10-05] MEDS: IBUPROFEN 600 MG TAB PO SCH ×3 (08:22→21:10)
--- NOTE | 2017-10-05 10:07 | BHS Progress Note ---
BHS - Subjective Progress Notes Subjective Patient remains seemingly content on the unit with minimal verbalizations. Patient does verbalize that she wants to remain here on the unit. Appetite and sleep appear overall intact, internal stimuli remains ongoing, patient is not checking doors. Will continue to work with patient and guardian to develop and employ appropriate roasterman options. No other concerns. Suicidal Ideation: None Homicidal Ideation: None BHS - Objective Physical Exam Vital Signs Vital Signs Date Time Temp Pulse Resp B/P (MAP) Pulse Ox O2 Delivery O2 Flow Rate FiO2 10/05/17 03:01 98.2 102 142/89 (106) 95 Room Air 10/04/17 05:45 15 Hematology Test 09/27/17 20:58 10/01/17 14:55 10/01/17 17:15 Urine Amorphous Crystals Few /HPF Red Blood Count 4.53 M/uL (4.17-5.56) Mean Corpuscular Volume 86.8 fL (80.0-96.0) Mean Corpuscular Hemoglobin 29.0 pg (26.0-33.0) Mean Corpuscular Hemoglobin Concent 33.4 g/dL (32.0-36.0) Red Cell Distribution Width 13.1 % (11.5-14.5) Mean Platelet Volume 8.0 fL (7.2-11.1) Neutrophils (%) (Auto) 65.2 % (39.4-72.5) Lymphocytes (%) (Auto) 26.3 % (17.6-49.6) Monocytes (%) (Auto) 6.1 % (4.1-12.4) Eosinophils (%) (Auto) 1.5 % (0.4-6.7) Basophils (%) (Auto) 0.9 % (0.3-1.4) Nucleated RBC Relative Count (auto) 0.0 /100WBC Neutrophils # (Auto) 4.1 K/uL (2.0-7.4) Lymphocytes # (Auto) 1.7 K/uL (1.3-3.6) Monocytes # (Auto) 0.4 K/uL (0.3-1.0) Eosinophils # (Auto) 0.1 K/uL (0.0-0.5) Basophils # (Auto) 0.1 K/uL (0.0-0.1) Nucleated RBC Absolute Count (auto) 0.00 K/uL Sodium Level 141 mmol/L (137-145) Potassium Level 3.9 mmol/L (3.5-5.0) Chloride Level 105 mmol/L (98-107) Carbon Dioxide Level 23 mmol/L (22-31) Blood Urea Nitrogen 18 mg/dl (7-18) Creatinine 0.60 mg/dl (0.52-1.04) Glomerular Filtration Rate Calc > 60.0 Random Glucose 126 mg/dl (75-110) Calcium Level 10.1 mg/dl (8.4-10.2) Magnesium Level 1.8 mg/dl (1.7-2.2) Total Bilirubin 0.3 mg/dl (0.2-1.3) Aspartate Amino Transf (AST/SGOT) 23 U/L (0-35) Alanine Aminotransferase (ALT/SGPT) 28 U/L (0-56) Alkaline Phosphatase 132 U/L (0-126) Total Protein 6.9 gm/dl (6.3-8.2) Albumin 3.7 g/dl (3.5-5.0) Urine Color Straw Urine Clarity Clear Urine pH 5.0 pH (4.8-9.5) Urine Specific [place] 1.009 Urine Protein Negative mg/dL (NEGATIVE) Urine Glucose (UA) Negative mg/dL (NEGATIVE) Urine Ketones Negative mg/dL (NEGATIVE) Urine Blood Negative (NEGATIVE) Urine Nitrite Negative (NEGATIVE) Urine Bilirubin Negative (NEGATIVE) Urine Urobilinogen Negative mg/dL (0.2-1.9) Urine Leukocyte Esterase Negative (NEGATIVE) Urine RBC 1 /HPF (0-2/HPF) Urine WBC 1 /HPF (0-5/HPF) Urine Squamous Epithelial Cells None /LPF (</=FEW) Urine Bacteria Few /HPF (NONE-FEW) Urine Hyaline Casts Few /LPF (NONE-FEW) Urine Mucus Few /HPF (NONE-FEW) Chemistry Test 09/27/17 20:58 10/01/17 14:55 10/01/17 17:15 Urine Amorphous Crystals Few /HPF White Blood Count 6.3 k/uL (4.5-11.0) Red Blood Count 4.53 M/uL (4.17-5.56) Hemoglobin 13.1 g/dL (12.0-16.0) Hematocrit 39.3 % (34.0-47.0) Mean Corpuscular Volume 86.8 fL (80.0-96.0) Mean Corpuscular Hemoglobin 29.0 pg (26.0-33.0) Mean Corpuscular Hemoglobin Concent 33.4 g/dL (32.0-36.0) Red Cell Distribution Width 13.1 % (11.5-14.5) Platelet Count 260 K/uL (150-450) Mean Platelet Volume 8.0 fL (7.2-11.1) Neutrophils (%) (Auto) 65.2 % (39.4-72.5) Lymphocytes (%) (Auto) 26.3 % (17.6-49.6) Monocytes (%) (Auto) 6.1 % (4.1-12.4) Eosinophils (%) (Auto) 1.5 % (0.4-6.7) Basophils (%) (Auto) 0.9 % (0.3-1.4) Nucleated RBC Relative Count (auto) 0.0 /100WBC Neutrophils # (Auto) 4.1 K/uL (2.0-7.4) Lymphocytes # (Auto) 1.7 K/uL (1.3-3.6) Monocytes # (Auto) 0.4 K/uL (0.3-1.0) Eosinophils # (Auto) 0.1 K/uL (0.0-0.5) Basophils # (Auto) 0.1 K/uL (0.0-0.1) Nucleated RBC Absolute Count (auto) 0.00 K/uL Glomerular Filtration Rate Calc > 60.0 Calcium Level 10.1 mg/dl (8.4-10.2) Magnesium Level 1.8 mg/dl (1.7-2.2) Total Bilirubin 0.3 mg/dl (0.2-1.3) Aspartate Amino Transf (AST/SGOT) 23 U/L (0-35) Alanine Aminotransferase (ALT/SGPT) 28 U/L (0-56) Alkaline Phosphatase 132 U/L (0-126) Total Protein 6.9 gm/dl (6.3-8.2) Albumin 3.7 g/dl (3.5-5.0) Urine Color Straw Urine Clarity Clear Urine pH 5.0 pH (4.8-9.5) Urine Specific [place] 1.009 Urine Protein Negative mg/dL (NEGATIVE) Urine Glucose (UA) Negative mg/dL (NEGATIVE) Urine Ketones Negative mg/dL (NEGATIVE) Urine Blood Negative (NEGATIVE) Urine Nitrite Negative (NEGATIVE) Urine Bilirubin Negative (NEGATIVE) Urine Urobilinogen Negative mg/dL (0.2-1.9) Urine Leukocyte Esterase Negative (NEGATIVE) Urine RBC 1 /HPF (0-2/HPF) Urine WBC 1 /HPF (0-5/HPF) Urine Squamous Epithelial Cells None /LPF (</=FEW) Urine Bacteria Few /HPF (NONE-FEW) Urine Hyaline Casts Few /LPF (NONE-FEW) Urine Mucus Few /HPF (NONE-FEW) Urinalysis Test 09/27/17 20:58 10/01/17 17:15 Urine Amorphous Crystals Few /HPF Urine Color Straw Urine Clarity Clear Urine pH 5.0 pH (4.8-9.5) Urine Specific [place] 1.009 Urine Protein Negative mg/dL (NEGATIVE) Urine Glucose (UA) Negative mg/dL (NEGATIVE) Urine Ketones Negative mg/dL (NEGATIVE) Urine Blood Negative (NEGATIVE) Urine Nitrite Negative (NEGATIVE) Urine Bilirubin Negative (NEGATIVE) Urine Urobilinogen Negative mg/dL (0.2-1.9) Urine Leukocyte Esterase Negative (NEGATIVE) Urine RBC 1 /HPF (0-2/HPF) Urine WBC 1 /HPF (0-5/HPF) Urine Squamous Epithelial Cells None /LPF (</=FEW) Urine Bacteria Few /HPF (NONE-FEW) Urine Hyaline Casts Few /LPF (NONE-FEW) Urine Mucus Few /HPF (NONE-FEW) Hematology Test 09/27/17 20:58 10/01/17 14:55 10/01/17 17:15 Urine Amorphous Crystals Few /HPF Red Blood Count 4.53 M/uL (4.17-5.56) Mean Corpuscular Volume 86.8 fL (80.0-96.0) Mean Corpuscular Hemoglobin 29.0 pg (26.0-33.0) Mean Corpuscular Hemoglobin Concent 33.4 g/dL (32.0-36.0) Red Cell Distribution Width 13.1 % (11.5-14.5) Mean Platelet Volume 8.0 fL (7.2-11.1) Neutrophils (%) (Auto) 65.2 % (39.4-72.5) Lymphocytes (%) (Auto) 26.3 % (17.6-49.6) Monocytes (%) (Auto) 6.1 % (4.1-12.4) Eosinophils (%) (Auto) 1.5 % (0.4-6.7) Basophils (%) (Auto) 0.9 % (0.3-1.4) Nucleated RBC Relative Count (auto) 0.0 /100WBC Neutrophils # (Auto) 4.1 K/uL (2.0-7.4) Lymphocytes # (Auto) 1.7 K/uL (1.3-3.6) Monocytes # (Auto) 0.4 K/uL (0.3-1.0) Eosinophils # (Auto) 0.1 K/uL (0.0-0.5) Basophils # (Auto) 0.1 K/uL (0.0-0.1) Nucleated RBC Absolute Count (auto) 0.00 K/uL Sodium Level 141 mmol/L (137-145) Potassium Level 3.9 mmol/L (3.5-5.0) Chloride Level 105 mmol/L (98-107) Carbon Dioxide Level 23 mmol/L (22-31) Blood Urea Nitrogen 18 mg/dl (7-18) Creatinine 0.60 mg/dl (0.52-1.04) Glomerular Filtration Rate Calc > 60.0 Random Glucose 126 mg/dl (75-110) Calcium Level 10.1 mg/dl (8.4-10.2) Magnesium Level 1.8 mg/dl (1.7-2.2) Total Bilirubin 0.3 mg/dl (0.2-1.3) Aspartate Amino Transf (AST/SGOT) 23 U/L (0-35) Alanine Aminotransferase (ALT/SGPT) 28 U/L (0-56) Alkaline Phosphatase 132 U/L (0-126) Total Protein 6.9 gm/dl (6.3-8.2) Albumin 3.7 g/dl (3.5-5.0) Urine Color Straw Urine Clarity Clear Urine pH 5.0 pH (4.8-9.5) Urine Specific [place] 1.009 Urine Protein Negative mg/dL (NEGATIVE) Urine Glucose (UA) Negative mg/dL (NEGATIVE) Urine Ketones Negative mg/dL (NEGATIVE) Urine Blood Negative (NEGATIVE) Urine Nitrite Negative (NEGATIVE) Urine Bilirubin Negative (NEGATIVE) Urine Urobilinogen Negative mg/dL (0.2-1.9) Urine Leukocyte Esterase Negative (NEGATIVE) Urine RBC 1 /HPF (0-2/HPF) Urine WBC 1 /HPF (0-5/HPF) Urine Squamous Epithelial Cells None /LPF (</=FEW) Urine Bacteria Few /HPF (NONE-FEW) Urine Hyaline Casts Few /LPF (NONE-FEW) Urine Mucus Few /HPF (NONE-FEW) Chemistry Test 09/27/17 20:58 10/01/17 14:55 10/01/17 17:15 Urine Amorphous Crystals Few /HPF White Blood Count 6.3 k/uL (4.5-11.0) Red Blood Count 4.53 M/uL (4.17-5.56) Hemoglobin 13.1 g/dL (12.0-16.0) Hematocrit 39.3 % (34.0-47.0) Mean Corpuscular Volume 86.8 fL (80.0-96.0) Mean Corpuscular Hemoglobin 29.0 pg (26.0-33.0) Mean Corpuscular Hemoglobin Concent 33.4 g/dL (32.0-36.0) Red Cell Distribution Width 13.1 % (11.5-14.5) Platelet Count 260 K/uL (150-450) Mean Platelet Volume 8.0 fL (7.2-11.1) Neutrophils (%) (Auto) 65.2 % (39.4-72.5) Lymphocytes (%) (Auto) 26.3 % (17.6-49.6) Monocytes (%) (Auto) 6.1 % (4.1-12.4) Eosinophils (%) (Auto) 1.5 % (0.4-6.7) Basophils (%) (Auto) 0.9 % (0.3-1.4) Nucleated RBC Relative Count (auto) 0.0 /100WBC Neutrophils # (Auto) 4.1 K/uL (2.0-7.4) Lymphocytes # (Auto) 1.7 K/uL (1.3-3.6) Monocytes # (Auto) 0.4 K/uL (0.3-1.0) Eosinophils # (Auto) 0.1 K/uL (0.0-0.5) Basophils # (Auto) 0.1 K/uL (0.0-0.1) Nucleated RBC Absolute Count (auto) 0.00 K/uL Glomerular Filtration Rate Calc > 60.0 Calcium Level 10.1 mg/dl (8.4-10.2) Magnesium Level 1.8 mg/dl (1.7-2.2) Total Bilirubin 0.3 mg/dl (0.2-1.3) Aspartate Amino Transf (AST/SGOT) 23 U/L (0-35) Alanine Aminotransferase (ALT/SGPT) 28 U/L (0-56) Alkaline Phosphatase 132 U/L (0-126) Total Protein 6.9 gm/dl (6.3-8.2) Albumin 3.7 g/dl (3.5-5.0) Urine Color Straw Urine Clarity Clear Urine pH 5.0 pH (4.8-9.5) Urine Specific [place] 1.009 Urine Protein Negative mg/dL (NEGATIVE) Urine Glucose (UA) Negative mg/dL (NEGATIVE) Urine Ketones Negative mg/dL (NEGATIVE) Urine Blood Negative (NEGATIVE) Urine Nitrite Negative (NEGATIVE) Urine Bilirubin Negative (NEGATIVE) Urine Urobilinogen Negative mg/dL (0.2-1.9) Urine Leukocyte Esterase Negative (NEGATIVE) Urine RBC 1 /HPF (0-2/HPF) Urine WBC 1 /HPF (0-5/HPF) Urine Squamous Epithelial Cells None /LPF (</=FEW) Urine Bacteria Few /HPF (NONE-FEW) Urine Hyaline Casts Few /LPF (NONE-FEW) Urine Mucus Few /HPF (NONE-FEW) Urinalysis Test 09/27/17 20:58 10/01/17 17:15 Urine Amorphous Crystals Few /HPF Urine Color Straw Urine Clarity Clear Urine pH 5.0 pH (4.8-9.5) Urine Specific [place] 1.009 Urine Protein Negative mg/dL (NEGATIVE) Urine Glucose (UA) Negative mg/dL (NEGATIVE) Urine Ketones Negative mg/dL (NEGATIVE) Urine Blood Negative (NEGATIVE) Urine Nitrite Negative (NEGATIVE) Urine Bilirubin Negative (NEGATIVE) Urine Urobilinogen Negative mg/dL (0.2-1.9) Urine Leukocyte Esterase Negative (NEGATIVE) Urine RBC 1 /HPF (0-2/HPF) Urine WBC 1 /HPF (0-5/HPF) Urine Squamous Epithelial Cells None /LPF (</=FEW) Urine Bacteria Few /HPF (NONE-FEW) Urine Hyaline Casts Few /LPF (NONE-FEW) Urine Mucus Few /HPF (NONE-FEW) Muscle Strength and Tone: WNL Gait and Station: Steady [facility] Medications Reviewed: Side Effects, Benefits of Medication, Risks Allergies Reviewed: Yes Mental Status Exam General Appearance: Cooperative, Unkept, No Tearful, No Psychomotor Agitation, Psychomotor Retardation, Bizarre Mannerisms (associatedd with underlying well established psychotic disorder) Speech: Other (significant paucity of speech, very low volume when she does reply in one or two word utterances) Mood: Dysthmic/Depressed (appearing) Affect: Calm, Flat, Withdrawn Thought Process: Goal Directed ("I want to stay here"), No Loose Associations, No Flight of Ideas, Other (unable to assess) Thought Content: No Suicidal Ideation, No Homicidal Ideation, Delusions, Auditory Halllucinations ( appears internally preoccupied.), No Obsessions, No Compulsions Sensorium: Clear Cognition: Other (can't fully assess) Memory: Other (can't fully assess, but appears intact) Intelligence: Average Insight Judgment: Poor (limited by persistent mental illness) Result Diagram: 10/01/17 1455 10/01/17 1455 [facility] Assessment and Plan [id number] Encounter Date: Oct 05, 2017 [id number] Encounter Time: 09:40 [facility] Plan: Necessary Precautions, Individual/Group Therapy, Admin/Titrate Meds, Educate Patient Tobacco Medications: Not Appropriate Condition Problems: (1) Schizophrenia Status: Chronic Condition 1. continue to encourage open communication. 2. look into suitable assisted options. Problem Qualifiers (1) Schizophrenia: Schizophrenia type: paranoid schizophrenia Qualified Codes: F20.0 - Paranoid schizophrenia JUMANA KEARNEY MD Oct 05, 2017 10:07
[2017-10-05 12:58] VITALS: BP 111/96
[2017-10-06 00:28] VITALS: BP 139/99
[2017-10-06 08:20] VITALS: BP_SYST 115; BP_SYST 118; BP_DIAS 88; BP_DIAS 95
[2017-10-06] MEDS: IBUPROFEN 600 MG TAB PO SCH ×3 (08:23→21:00)
--- NOTE | 2017-10-06 10:19 | BHS Progress Note ---
[facility] - Subjective Progress Notes Subjective "My leg really really hurts. 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 " Denies suicidal or homicidal ideation. Suicidal Ideation: None Homicidal Ideation: None [facility] - Objective Physical Exam Muscle Strength and Tone: WNL Gait and Station: Steady [facility] Medications Reviewed: Side Effects, Benefits of Medication, Risks Allergies Reviewed: Yes Mental Status Exam General Appearance: Cooperative, Unkept, No Tearful, No Psychomotor Agitation, Psychomotor Retardation, Bizarre Mannerisms (associatedd with underlying well established psychotic disorder) Speech: Other (significant paucity of speech, very low volume when she does reply in one or two word utterances) Mood: Dysthmic/Depressed (appearing) Affect: Calm, Flat, Withdrawn Thought Process: Goal Directed ("I want to stay here"), No Loose Associations, No Flight of Ideas, Other (unable to assess) Thought Content: No Suicidal Ideation, No Homicidal Ideation, Delusions, Auditory Halllucinations ( appears internally preoccupied.), No Obsessions, No Compulsions Sensorium: Clear Cognition: Other (can't fully assess) Memory: Other (can't fully assess, but appears intact) Intelligence: Average Insight Judgment: Poor (limited by persistent mental illness) Lab Current Medications Medications (Trade) Dose Ordered Sig/Marquita Route PRN Reason Start Time Stop Time Status Last Admin Dose Admin Tramadol HCl (Ultram(*) 50 Mg Tab (Or Equiv)) 50 mg Q6H PRN PO PAIN 09/26/17 23:40 10/26/17 23:39 10/01/17 17:59 Lorazepam (Ativan(*) 1 Mg Tab (Or Equiv)) 1 mg ONCE ONCE PO 09/27/17 12:15 09/27/17 12:16 DC 09/27/17 12:22 Ibuprofen (Motrin (*) 600 Mg Tab (Or Equiv)) 600 mg Q6H PRN PO PAIN 09/27/17 20:25 10/01/17 14:11 DC 10/01/17 13:53 Lorazepam (Ativan(*) 1 Mg Tab (Or Equiv)) 1 mg ONCE ONCE PO 09/28/17 11:55 09/28/17 12:06 DC 09/28/17 12:16 Clonazepam (KlonoPIN(*) 0.5 MG TAB (OR EQUIV)) 0.5 mg BID PO 09/28/17 21:00 10/01/17 10:17 DC 10/01/17 08:11 Risperidone (RisperDAL CONSTA 25 MG/2 ML KIT (OR EQUIV)) 12.5 mg ONCE ONCE IM ONLY 10/01/17 09:00 10/01/17 09:01 Cancel Risperidone (Risperdal Consta) 12.5 mg ONCE ONCE IM 10/01/17 10:00 10/01/17 10:17 DC Ibuprofen (Motrin (*) 600 Mg Tab (Or Equiv)) 600 mg TID PO 10/01/17 21:00 10/27/17 20:24 10/06/17 08:23 Miscellaneous Information (Patient'S Own Med) 1 ea TID PRN TD PAIN 10/02/17 11:50 11/01/17 11:49 10/04/17 08:29 Vital Signs Date Time Temp Pulse Resp B/P (MAP) Pulse Ox O2 Delivery O2 Flow Rate FiO2 10/06/17 08:20 99.2 94 115/88 (97) 98 Room Air 10/05/17 12:58 14 Allergies Coded Allergies citric acid (Unverified Allergy, Intermediate, HIVES, 09/26/17) Sulfa (Sulfonamide Antibiotics) (Verified Allergy, Unknown, 09/26/17) codeine (Unverified Allergy, Unknown, GI DISTRESS, 09/26/17) fluoxetine HCl (Verified Allergy, Unknown, 09/26/17) [facility] Assessment and Plan [id number] Encounter Date: Oct 06, 2017 [id number] Encounter Time: 10:28 [facility]HS Plan: Necessary Precautions, Individual/Group Therapy, Admin/Titrate Meds, Educate Patient Tobacco Medications: Not Appropriate Condition Problems: (1) Schizophrenia Status: Chronic (2) Gravely disabled Status: Chronic Condition Continue close monitoring, fall precautions Ongoing discharge planning, discussion with guardian about appropriate disposition Continue current medications Current Medications Medications (Trade) Dose Ordered Sig/Marquita Route PRN Reason Start Time Stop Time Status Last Admin Dose Admin Tramadol HCl (Ultram(*) 50 Mg Tab (Or Equiv)) 50 mg Q6H PRN PO PAIN 09/26/17 23:40 10/26/17 23:39 10/01/17 17:59 Lorazepam (Ativan(*) 1 Mg Tab (Or Equiv)) 1 mg ONCE ONCE PO 09/27/17 12:15 09/27/17 12:16 DC 09/27/17 12:22 Ibuprofen (Motrin (*) 600 Mg Tab (Or Equiv)) 600 mg Q6H PRN PO PAIN 09/27/17 20:25 10/01/17 14:11 DC 10/01/17 13:53 Lorazepam (Ativan(*) 1 Mg Tab (Or Equiv)) 1 mg ONCE ONCE PO 09/28/17 11:55 09/28/17 12:06 DC 09/28/17 12:16 Clonazepam (KlonoPIN(*) 0.5 MG TAB (OR EQUIV)) 0.5 mg BID PO 09/28/17 21:00 10/01/17 10:17 DC 10/01/17 08:11 Risperidone (RisperDAL CONSTA 25 MG/2 ML KIT (OR EQUIV)) 12.5 mg ONCE ONCE IM ONLY 10/01/17 09:00 10/01/17 09:01 Cancel Risperidone (Risperdal Consta) 12.5 mg ONCE ONCE IM 10/01/17 10:00 10/01/17 10:17 DC Ibuprofen (Motrin (*) 600 Mg Tab (Or Equiv)) 600 mg TID PO 10/01/17 21:00 10/27/17 20:24 10/06/17 08:23 Miscellaneous Information (Patient'S Own Med) 1 ea TID PRN TD PAIN 10/02/17 11:50 11/01/17 11:49 10/04/17 08:29 GERARDO HUBER NP Oct 06, 2017 10:19
[2017-10-07 00:25] VITALS: BP 118/73
[2017-10-07] MEDS: IBUPROFEN 600 MG TAB PO SCH ×3 (08:31→21:44)
--- NOTE | 2017-10-07 09:40 | BHS Progress Note ---
[facility] - Subjective Progress Notes Subjective Limited communication today, less than 10/06, rocks during interview, no eye contact, withdrawn Yesterday more verbal interaction, reported sees Elisha Link RN seen at [facility] for Risperdal Consta injections every two weeks Mood "pretty even" yesterday per patient, flat affect, no eye contact Denies sadness Denies anger Appetite "It's pretty good." "My father" good support system "He had a mild stroke so he's in a care provider unit." Denies contact since father had stroke One brother living in [place], talked to him at [place], "He's supposed to fly out here on Sunday,." Living in [place], "I cook for myself." 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 " Denies suicidal or homicidal ideation. Suicidal Ideation: None Homicidal Ideation: None Suicidal Ideation: None Homicidal Ideation: None [facility] - Objective Physical Exam Muscle Strength and Tone: WNL Gait and Station: Steady, Other (grimaces when standing, slightly limped gait , reports ongoing left lower extremity pain, rates "5' 1-10 SCALE ) [facility] Medications Reviewed: Side Effects, Benefits of Medication, Risks Allergies Reviewed: Yes Mental Status Exam General Appearance: Cooperative, Unkept, No Tearful, No Psychomotor Agitation, Psychomotor Retardation, Bizarre Mannerisms (associatedd with underlying well established psychotic disorder) Speech: Other (significant paucity of speech, very low volume when she does reply in one or two word utterances) Mood: Dysthmic/Depressed (appearing) Affect: Calm, Flat, Withdrawn Thought Process: Goal Directed ("I want to stay here"), No Loose Associations, No Flight of Ideas, Other (unable to assess) Thought Content: No Suicidal Ideation, No Homicidal Ideation, No Delusions, Auditory Halllucinations ( appears internally preoccupied.), No Obsessions, No Compulsions Sensorium: Clear Cognition: Other (can't fully assess) Memory: Other (can't fully assess, but appears intact) Intelligence: Average Insight Judgment: Poor (limited by persistent mental illness) Lab Vital Signs Date Time Temp Pulse Resp B/P (MAP) Pulse Ox O2 Delivery O2 Flow Rate FiO2 10/07/17 00:25 99.1 87 118/73 (88) 96 Room Air 10/05/17 12:58 14 Allergies Coded Allergies citric acid (Unverified Allergy, Intermediate, HIVES, 09/26/17) Sulfa (Sulfonamide Antibiotics) (Verified Allergy, Unknown, 09/26/17) codeine (Unverified Allergy, Unknown, GI DISTRESS, 09/26/17) fluoxetine HCl (Verified Allergy, Unknown, 09/26/17) S Assessment and Plan [id number] Encounter Date: Oct 07, 2017 [id number] Encounter Time: 09:40 [facility] Plan: Necessary Precautions, Individual/Group Therapy, Admin/Titrate Meds, Educate Patient Tobacco Medications: Not Appropriate Condition Problems: (1) Schizophrenia Status: Chronic (2) Gravely disabled Status: Chronic Condition Ogoing discharge planning Continue current medications, treatment Further collaboration of care with family, brother who is legal guardian and [facility] GERARDO HUBER NP Oct 07, 2017 09:40
[2017-10-07 13:15] VITALS: BP 104/62
[2017-10-07 17:27] VITALS: BP 135/71
--- NOTE | 2017-10-07 18:15 | BHS Progress Note ---
[facility] - Subjective Progress Notes Subjective Client denies SI/HI. She is seen in her room. Suicidal Ideation: None Homicidal Ideation: None [facility] - Objective Physical Exam Muscle Strength and Tone: WNL Gait and Station: Steady, Other (grimaces when standing, slightly limped gait , reports ongoing left lower extremity pain, rates "5' 1-10 SCALE ) [facility] Medications Reviewed: Side Effects, Benefits of Medication, Risks Allergies Reviewed: Yes Mental Status Exam General Appearance: Cooperative, Unkept, No Tearful, No Psychomotor Agitation, Psychomotor Retardation, Bizarre Mannerisms (associatedd with underlying well established psychotic disorder) Speech: Other (significant paucity of speech, very low volume when she does reply in one or two word utterances) Mood: Dysthmic/Depressed (appearing) Affect: Calm, Flat, Withdrawn Thought Process: Goal Directed ("I want to stay here"), No Loose Associations, No Flight of Ideas, Other (unable to assess) Thought Content: No Suicidal Ideation, No Homicidal Ideation, No Delusions, Auditory Halllucinations ( appears internally preoccupied.), No Obsessions, No Compulsions Sensorium: Clear Cognition: Other (can't fully assess) Memory: Other (can't fully assess, but appears intact) Intelligence: Average Insight Judgment: Poor (limited by persistent mental illness) [facility] Assessment and Plan [id number] Encounter Date: Sep 30, 2017 [id number] Encounter Time: 08:30 [facility] Plan: Necessary Precautions, Individual/Group Therapy, Admin/Titrate Meds, Educate Patient Tobacco Medications: Not Appropriate Condition Problems: ERVIN HOANG NP Oct 07, 2017 18:15
[2017-10-08 01:02] VITALS: BP 134/89
[2017-10-08] MEDS: IBUPROFEN 600 MG TAB PO PRN ×2 (08:44→22:19)
[2017-10-08 09:37] VITALS: BP 137/89
--- NOTE | 2017-10-08 09:50 | BHS Progress Note ---
[facility] - Subjective Progress Notes Subjective "I came to the hospital and agreed to stay, which was surprising to them. I was supposed to be released last Sunday but when they asked me if I wanted to stay I decided to. I would like to go back to my apartment, but it's really helping my leg to stay." Improved interaction today with team members, answers appropriately with full sentences Physical therapy has discharged patient, goals met, gait improved, rating pain "4" 1-10 scale, 10 worst [facility] contacts, two refusals and two moved to corporate level for consideration brother Sage contacted by conference call, treatment team scheduled w/ brothbobbi for 10/10/17 Treatment team today with [facility], brother Chu via phone, ongoing coordination of care with outpatient services and family Suicidal Ideation: None Homicidal Ideation: None S - Objective Physical Exam Muscle Strength and Tone: WNL Gait and Station: Steady, Other (grimaces when standing, slightly limped gait , reports ongoing left lower extremity pain, rates "5' 1-10 SCALE ) [facility] Medications Reviewed: Side Effects, Benefits of Medication, Risks Allergies Reviewed: Yes Mental Status Exam General Appearance: Cooperative, Unkept, No Tearful, No Psychomotor Agitation, Psychomotor Retardation, Bizarre Mannerisms (rocking behavior) Speech: Other (Poverty of speech at times, more interactive today with team members) Mood: Dysthmic/Depressed (appearing) Affect: Flat, Withdrawn Thought Process: Goal Directed ("I want to stay here"), No Loose Associations, No Flight of Ideas Thought Content: No Suicidal Ideation, No Homicidal Ideation, No Delusions, Auditory Halllucinations ( appears internally preoccupied.), No Obsessions, No Compulsions Sensorium: Clear Cognition: Alert & Oriented-Person, Alert & Oriented-Place, Alert-Oriented- Situation, No Other Memory: Other (can't fully assess, but appears intact) Intelligence: Average Insight Judgment: Poor (limited by persistent mental illness) Lab Vital Signs Date Time Temp Pulse Resp B/P (MAP) Pulse Ox O2 Delivery O2 Flow Rate FiO2 10/08/17 09:37 99.6 138 137/89 (105) 95 Room Air 10/07/17 17:27 16 Allergies Coded Allergies citric acid (Unverified Allergy, Intermediate, HIVES, 09/26/17) Sulfa (Sulfonamide Antibiotics) (Verified Allergy, Unknown, 09/26/17) codeine (Unverified Allergy, Unknown, GI DISTRESS, 09/26/17) fluoxetine HCl (Verified Allergy, Unknown, 09/26/17) [facility] Assessment and Plan [id number] Encounter Date: Oct 08, 2017 [id number] Encounter Time: 09:45 [facility] Plan: Necessary Precautions, Individual/Group Therapy, Admin/Titrate Meds, Educate Patient Tobacco Medications: Not Appropriate Condition Problems: (1) Schizophrenia Status: Chronic (2) Gravely disabled Status: Chronic Condition Continue current medications and treatment Ongoing coordination of care with [facility] Maintain precautions, encourage out of bed in daytime hours GERARDO HUBER NP Oct 08, 2017 09:50
[2017-10-08] MEDS: traMADol 50 MG TAB PO PRN (17:57)
[2017-10-08] MEDS ORDERED: traMADol 50 MG TAB PO ONE (20:25)
[2017-10-08 22:32] VITALS: BP 110/88
[2017-10-09 04:27] VITALS: BP 129/64
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
[2017-10-09 15:56] VITALS: BP 107/66
[2017-10-10 05:46] VITALS: BP 110/73
[2017-10-10 08:56] VITALS: BP 105/67
--- NOTE | 2017-10-10 11:25 | BHS Progress Note ---
[facility] - Subjective Progress Notes Subjective Patient remains ambivalent about desires to leave the hospital, Guardian brother here as well trying to elicit desires. Patient seemingly switching from wanting to go home to continuing to stay here. Psychosis considered baseline, and patients ambulatory status is improving, will have PT evaluate ability to use stairs. Appetite and sleep good, Risperdal consta shot today. Suicidal Ideation: None Homicidal Ideation: None [facility] - Objective Physical Exam Vital Signs Allergies Coded Allergies citric acid (Unverified Allergy, Intermediate, HIVES, 09/26/17) Sulfa (Sulfonamide Antibiotics) (Verified Allergy, Unknown, 09/26/17) codeine (Unverified Allergy, Unknown, GI DISTRESS, 09/26/17) fluoxetine HCl (Verified Allergy, Unknown, 09/26/17) Hematology Test 09/27/17 20:58 10/01/17 14:55 10/01/17 17:15 Urine Amorphous Crystals Few /HPF Red Blood Count 4.53 M/uL (4.17-5.56) Mean Corpuscular Volume 86.8 fL (80.0-96.0) Mean Corpuscular Hemoglobin 29.0 pg (26.0-33.0) Mean Corpuscular Hemoglobin Concent 33.4 g/dL (32.0-36.0) Red Cell Distribution Width 13.1 % (11.5-14.5) Mean Platelet Volume 8.0 fL (7.2-11.1) Neutrophils (%) (Auto) 65.2 % (39.4-72.5) Lymphocytes (%) (Auto) 26.3 % (17.6-49.6) Monocytes (%) (Auto) 6.1 % (4.1-12.4) Eosinophils (%) (Auto) 1.5 % (0.4-6.7) Basophils (%) (Auto) 0.9 % (0.3-1.4) Nucleated RBC Relative Count (auto) 0.0 /100WBC Neutrophils # (Auto) 4.1 K/uL (2.0-7.4) Lymphocytes # (Auto) 1.7 K/uL (1.3-3.6) Monocytes # (Auto) 0.4 K/uL (0.3-1.0) Eosinophils # (Auto) 0.1 K/uL (0.0-0.5) Basophils # (Auto) 0.1 K/uL (0.0-0.1) Nucleated RBC Absolute Count (auto) 0.00 K/uL Sodium Level 141 mmol/L (137-145) Potassium Level 3.9 mmol/L (3.5-5.0) Chloride Level 105 mmol/L (98-107) Carbon Dioxide Level 23 mmol/L (22-31) Blood Urea Nitrogen 18 mg/dl (7-18) Creatinine 0.60 mg/dl (0.52-1.04) Glomerular Filtration Rate Calc > 60.0 Random Glucose 126 mg/dl (75-110) Calcium Level 10.1 mg/dl (8.4-10.2) Magnesium Level 1.8 mg/dl (1.7-2.2) Total Bilirubin 0.3 mg/dl (0.2-1.3) Aspartate Amino Transf (AST/SGOT) 23 U/L (0-35) Alanine Aminotransferase (ALT/SGPT) 28 U/L (0-56) Alkaline Phosphatase 132 U/L (0-126) Total Protein 6.9 gm/dl (6.3-8.2) Albumin 3.7 g/dl (3.5-5.0) Urine Color Straw Urine Clarity Clear Urine pH 5.0 pH (4.8-9.5) Urine Specific [place] 1.009 Urine Protein Negative mg/dL (NEGATIVE) Urine Glucose (UA) Negative mg/dL (NEGATIVE) Urine Ketones Negative mg/dL (NEGATIVE) Urine Blood Negative (NEGATIVE) Urine Nitrite Negative (NEGATIVE) Urine Bilirubin Negative (NEGATIVE) Urine Urobilinogen Negative mg/dL (0.2-1.9) Urine Leukocyte Esterase Negative (NEGATIVE) Urine RBC 1 /HPF (0-2/HPF) Urine WBC 1 /HPF (0-5/HPF) Urine Squamous Epithelial Cells None /LPF (</=FEW) Urine Bacteria Few /HPF (NONE-FEW) Urine Hyaline Casts Few /LPF (NONE-FEW) Urine Mucus Few /HPF (NONE-FEW) Chemistry Test 09/27/17 20:58 10/01/17 14:55 10/01/17 17:15 Urine Amorphous Crystals Few /HPF White Blood Count 6.3 k/uL (4.5-11.0) Red Blood Count 4.53 M/uL (4.17-5.56) Hemoglobin 13.1 g/dL (12.0-16.0) Hematocrit 39.3 % (34.0-47.0) Mean Corpuscular Volume 86.8 fL (80.0-96.0) Mean Corpuscular Hemoglobin 29.0 pg (26.0-33.0) Mean Corpuscular Hemoglobin Concent 33.4 g/dL (32.0-36.0) Red Cell Distribution Width 13.1 % (11.5-14.5) Platelet Count 260 K/uL (150-450) Mean Platelet Volume 8.0 fL (7.2-11.1) Neutrophils (%) (Auto) 65.2 % (39.4-72.5) Lymphocytes (%) (Auto) 26.3 % (17.6-49.6) Monocytes (%) (Auto) 6.1 % (4.1-12.4) Eosinophils (%) (Auto) 1.5 % (0.4-6.7) Basophils (%) (Auto) 0.9 % (0.3-1.4) Nucleated RBC Relative Count (auto) 0.0 /100WBC Neutrophils # (Auto) 4.1 K/uL (2.0-7.4) Lymphocytes # (Auto) 1.7 K/uL (1.3-3.6) Monocytes # (Auto) 0.4 K/uL (0.3-1.0) Eosinophils # (Auto) 0.1 K/uL (0.0-0.5) Basophils # (Auto) 0.1 K/uL (0.0-0.1) Nucleated RBC Absolute Count (auto) 0.00 K/uL Glomerular Filtration Rate Calc > 60.0 Calcium Level 10.1 mg/dl (8.4-10.2) Magnesium Level 1.8 mg/dl (1.7-2.2) Total Bilirubin 0.3 mg/dl (0.2-1.3) Aspartate Amino Transf (AST/SGOT) 23 U/L (0-35) Alanine Aminotransferase (ALT/SGPT) 28 U/L (0-56) Alkaline Phosphatase 132 U/L (0-126) Total Protein 6.9 gm/dl (6.3-8.2) Albumin 3.7 g/dl (3.5-5.0) Urine Color Straw Urine Clarity Clear Urine pH 5.0 pH (4.8-9.5) Urine Specific [place] 1.009 Urine Protein Negative mg/dL (NEGATIVE) Urine Glucose (UA) Negative mg/dL (NEGATIVE) Urine Ketones Negative mg/dL (NEGATIVE) Urine Blood Negative (NEGATIVE) Urine Nitrite Negative (NEGATIVE) Urine Bilirubin Negative (NEGATIVE) Urine Urobilinogen Negative mg/dL (0.2-1.9) Urine Leukocyte Esterase Negative (NEGATIVE) Urine RBC 1 /HPF (0-2/HPF) Urine WBC 1 /HPF (0-5/HPF) Urine Squamous Epithelial Cells None /LPF (</=FEW) Urine Bacteria Few /HPF (NONE-FEW) Urine Hyaline Casts Few /LPF (NONE-FEW) Urine Mucus Few /HPF (NONE-FEW) Urinalysis Test 09/27/17 20:58 10/01/17 17:15 Urine Amorphous Crystals Few /HPF Urine Color Straw Urine Clarity Clear Urine pH 5.0 pH (4.8-9.5) Urine Specific [place] 1.009 Urine Protein Negative mg/dL (NEGATIVE) Urine Glucose (UA) Negative mg/dL (NEGATIVE) Urine Ketones Negative mg/dL (NEGATIVE) Urine Blood Negative (NEGATIVE) Urine Nitrite Negative (NEGATIVE) Urine Bilirubin Negative (NEGATIVE) Urine Urobilinogen Negative mg/dL (0.2-1.9) Urine Leukocyte Esterase Negative (NEGATIVE) Urine RBC 1 /HPF (0-2/HPF) Urine WBC 1 /HPF (0-5/HPF) Urine Squamous Epithelial Cells None /LPF (</=FEW) Urine Bacteria Few /HPF (NONE-FEW) Urine Hyaline Casts Few /LPF (NONE-FEW) Urine Mucus Few /HPF (NONE-FEW) Muscle Strength and Tone: WNL Gait and Station: Steady, Other (improved overall) [facility] Medications Reviewed: Side Effects, Benefits of Medication, Risks Allergies Reviewed: Yes Mental Status Exam General Appearance: No Good Eye Contact, Cooperative, Polite, Unkept, No Tearful, No Psychomotor Agitation, Psychomotor Retardation, Bizarre Mannerisms ( rocking behavior) Speech: No Normal Rate, No Normal Volume, Other (Poverty of speech at times, more interactive today with team members) Mood: Dysthmic/Depressed (appearing) Affect: Flat, Withdrawn Thought Process: Goal Directed ("I want to stay here" remains ambivalent ), No Loose Associations, No Flight of Ideas Thought Content: No Suicidal Ideation, No Homicidal Ideation, No Delusions, Auditory Halllucinations ( appears internally preoccupied.), No Obsessions, No Compulsions Sensorium: Clear Cognition: Alert & Oriented-Person, Alert & Oriented-Place, Alert-Oriented- Situation, No Other Memory: Other (can't fully assess, but appears intact) Intelligence: Average Insight Judgment: Poor (limited by persistent mental illness) [facility] Assessment and Plan [id number] Encounter Date: Oct 10, 2017 [id number] Encounter Time: 10:30 [facility] Plan: Necessary Precautions, Individual/Group Therapy, Admin/Titrate Meds, Educate Patient Tobacco Medications: Not Appropriate Condition Problems: (1) Schizophrenia Status: Chronic Condition 1. continue treatment. 2. PT to evaluate stairs 3. risperdal injection today. Problem Qualifiers (1) Schizophrenia: Schizophrenia type: paranoid schizophrenia Qualified Codes: F20.0 - Paranoid schizophrenia JUMANA KEARNEY MD Oct 10, 2017 11:25
[2017-10-10] MEDS ORDERED: RISPERIDONE 37.5 MG/2 ML IM ONLY ONE (12:00)
[2017-10-10 20:14] VITALS: BP 140/93
[2017-10-10] MEDS: IBUPROFEN 600 MG TAB PO PRN (21:04)
[2017-10-11 05:51] VITALS: BP 111/68
[2017-10-11 08:53] VITALS: BP 115/66
[2017-10-11] MEDS ORDERED: IBUP600T22 PO (11:32)
[2017-10-11] MEDS ORDERED: [UNRECOGNIZED DRUG - CODE] TP (11:33)
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
== END 2017-10-11 11:47 | disposition home or self-care (01) | DRG 885 ==
LOC: BHS 20:41
PROVIDERS: ADMIT Psychiatry & Neurology Psychiatry; ATTEND Psychiatry & Neurology Psychiatry
DX: F20.0 Paranoid schizophrenia (principal); S00.83XA Contusion of other part of head, initial encounter; S70.02XA Contusion of left hip, initial encounter; F32.9 Major depressive disorder, single episode, unspecified; R10.2 Pelvic and perineal pain; X58.XXXA Exposure to other specified factors, initial encounter; Z81.1 Family history of alcohol abuse and dependence; Z81.8 Family history of other mental and behavioral disorders; Z87.891 Personal history of nicotine dependence; Z88.2 Allergy status to sulfonamides; Z88.8 Allergy status to other drugs, medicaments and biological substances
CPT/HCPCS: 36415; 81001; 82040; 82247; 82310; 82374; 82435; 82565; 82947; 83735; 84075; 84132; 84155; 84295; 84450; 84460; 84520; 85025; 90853; 93005; 97162; J2794

== ENCOUNTER → 2017-09-26 | Outpatient (CLI) | payer BC ==
[2016-04-22 11:17] VITALS: BMI 19.5
== END ==
LOC: AMB 16:41
PROVIDERS: ATTEND Nurse Practitioner
DX: M79.604 Pain in right leg (principal)
CPT/HCPCS: A0425; A0429

== ENCOUNTER 2018-01-28 06:16 | Emergency (ER) | payer BC ==
[2016-04-22 11:17] VITALS: Wt 56.7 kg
[2018-01-28 07:05] VITALS: BP 115/70
--- NOTE | 2018-01-28 07:10 | ER Report ---
History and Physical Time Seen By MD: 07:05 Hx. of Stated Complaint: FLAGGED DOWN LE. HAS BRUISING TO BOTH SIDES OF HEAD, BACK PAIN, DIFFICULTY WALKING. PT STATES SHE WAS JUST WALKING ALONG AND SUDDENLY COULDN'T STRAIGHTEN HER BACK UP. THE BRUISING ON HER HEAD IS FROM BRUSHING UP AGAINST A WALL. DRIED BLOOD NOTED IN HAIR HPI/ROS CHIEF COMPLAINT: back pain, fall HISTORY OF PRESENT ILLNESS: This is a 52 year old female. She was brought to the ER this morning by EMS. She has given several different complaints to different people this morning. She tells me that she is having some back pain. She says that she was walking around [facility] and had some pain in her low back and could not straiten up very well. She says she did fall the other day and hit her head and has some abrasions. Told the police and EMS that she had fallen and hit her head this morning. She denies any headache at this time. Denies neck pain. She denies shortness of breath or chest pain. Limited history due to her history of not wanting to talk much. REVIEW OF SYSTEMS: As above. Allergies: Coded Allergies: citric acid (Unverified Allergy, Intermediate, HIVES, 09/26/17) Sulfa (Sulfonamide Antibiotics) (Verified Allergy, Unknown, 09/26/17) codeine (Unverified Allergy, Unknown, GI DISTRESS, 09/26/17) fluoxetine HCl (Verified Allergy, Unknown, 09/26/17) Home Meds Reported Medications Trolamine Salicylate (ASPERCREME) 177.4 Ml Lotion, 1 MAHNAZ TP TID Y for PAIN 10/11/17 Ibuprofen (IBUPROFEN) 600 Mg Tablet, 1 TAB PO Q6H Y for PAIN, TAB 10/11/17 Risperidone (RISPERDAL CONSTA) 37.5 Mg/2 Ml/Syr Syr, 37.5 MG IM ONLY Q2WK, SYR 09/27/17 Reviewed Nurses Notes: Yes Hx Smoking: Yes Smoking Status: Former Smoker, Light Tobacco Smoker Exposure to Second Hand Smoke?: No Hx Substance Use Disorder: Yes Hx Alcohol Use: Yes Constitutional Vital Sign - Last 24 Hours 01/28/18 01/28/18 01/28/18 01/28/18 06:21 06:23 06:27 06:30 Temp 98.5 Pulse 106 Resp 18 B/P (MAP) 139/82 139/82 (101) 116/83 (94) 131/85 (100) Pulse Ox 94 O2 Delivery Room Air 01/28/18 01/28/18 07:05 07:16 B/P (MAP) 115/70 (85) Pulse Ox 96 Physical Exam General Appearance: Alert, she is slow to respond to questions, but this is her normal state in my previous interactions. She does not answer all questions , but again is what my past interaction with her is. Eyes: Pupils equal and round, no injection. Reactive to light. Extraocular movements are intact. ENT: Normal oral mucosa. Moist mucous membranes. Neck: Neck is supple and non tender. Respiratory: Chest is non tender, lungs are clear to auscultation. Cardiac: regular rate and rhythm Musculoskeletal: She has no pain with palpation of the midline cervical, thoracic or lumbar spine. She has some paraspinous muscle spasms and pain more so on the left. Non tender. Skin: Has abrasion and contusion on forehead. DIFFERENTIAL DIAGNOSIS: After history and physical exam differential diagnosis was considered for a patient with complaint of musculoskeletal back pain, and question of fall with head injury without clear timeframe of when or where this happened. Medical Decision Making EKG/Imaging Imaging CT Head without contrast and CT Cervical spine: Indication: Fall. Comparison: Facial bone radiographs 09/26/2017 Technique: CT head: Axial CT images were obtained through the brain from the skull base to the vertex without administration of IV contrast. Reformatted coronal and sagittal images were also obtained. Technique: CT cervical spine: Axial CT imaging of the cervical spine was performed. 2-D sagittal and coronal CT reformats were also obtained. One of the following dose optimization techniques was utilized in the performance of this exam: Automated exposure control; adjustment of the mA and/ or kV according to the patient's size; or use of an iterative reconstruction technique. Specific details can be referenced in the facility's radiology CT exam operational policy. FINDINGS: CT head: No evidence of mass, mass effect, or midline shift. No acute intracranial hemorrhage or acute territorial infarction. No fracture. Globes and orbits are normal. Small retention cyst and mild mucosal thickening in the maxillary sinuses. The visualized paranasal sinuses and mastoid air spaces are otherwise clear. 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 CT cervical spine: No acute abnormality of cervical vertebral body height and alignment. No cervical spine fracture. There is no prevertebral soft tissue thickening. Moderate spondylosis at C5-6 with associated neural foraminal and spinal canal narrowing. Remaining visualized cervical soft tissues are unremarkable. The airway is patent. The lung apices are clear. IMPRESSION: 1. No acute intracranial abnormality. 2. No acute osseous abnormality of the cervical spine. 3. Nonacute findings as described. Report Dictated By: Ryan Sage MD at 01/28/2018 7:09 AM ED Course/Re-evaluation ED Course The patient did accept some Ibuprofen, 200mg tablets x2. She did not want any other medicines. CT scan negative. Re-evaluation shows no changes. She would like to go home now and is discharged in good condition. Decision to Disposition Date: January 28, 2018 Decision to Disposition Time: 07:56 Depart Departure Latest Vital Signs Vital Signs Date Time Temp Pulse Resp B/P (MAP) Pulse Ox O2 Delivery O2 Flow Rate FiO2 01/28/18 07:16 96 01/28/18 07:05 115/70 (85) 01/28/18 06:21 98.5 106 18 Room Air Impression: Primary Impression: Back muscle spasm Additional Impression: Contusion of forehead Condition: Improved Disposition: HOME OR SELF-CARE Patient Instructions: Musculoskeletal Pain (ED) Additional Instructions: You can use Ibuprofen 200mg over the counter tablets, 2-3 every 8 hours as needed for pain. Problem Qualifiers Additional Impression: Contusion of forehead Encounter type: initial encounter Qualified Codes: S00.83XA - Contusion of other part of head, initial encounter BELLA MANN MD January 28, 2018 07:09
[2018-01-28] MEDS ORDERED: IBUPROFEN 200 MG TAB PO ONE (07:15)
--- NOTE | 2018-01-28 07:22 | RADIOLOGY IMAGING REPORT ---
FACILITY: [facility] - [place] PATIENT NAME: Kay Liu : 1965 MR: [id number] V: [id number] EXAM DATE: ORDERING PHYSICIAN: NIKITA WEBB TECHNOLOGIST: Location: [facility] [place] Patient: Kay Liu : 1965 Visit/Account:[id number] Date of Sevice: 01/28/2018 CT Head without contrast and CT Cervical spine: Indication: Fall. Comparison: Facial bone radiographs 09/26/2017 Technique: CT head: Axial CT images were obtained through the brain from the skull base to the verte x without administration of IV contrast. Reformatted coronal and sagittal images were also obtained. Technique: CT cervical spine: Axial CT imaging of the cervical spine was performed. 2-D sagittal and coronal CT reformats were also obtained. One of the following dose optimization techniques was utilized in the performance of this exam: Autom ated exposure control; adjustment of the mA and/or kV according to the patient's size; or use of an i terative reconstruction technique. Specific details can be referenced in the facility's radiology C T exam operational policy. FINDINGS: CT head: No evidence of mass, mass effect, or midline shift. No acute intracranial hemorrhage or acute territorial infarction. No fracture. Globes and orbits are normal. Small retention cyst and mild mucosal thickening in the maxillary sinuses. The visualized paranasal sinuses and mastoid air spaces are otherwise clear. 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 CT cervical spine: No acute abnormality of cervical vertebral body height and alignment. No cervical spine fracture. T here is no prevertebral soft tissue thickening. Moderate spondylosis at C5-6 with associated neural foraminal and spinal canal narrowing. Remaining visualized cervical soft tissues are unremarkable. The airway is patent. The lung apices are clear. IMPRESSION: 1. No acute intracranial abnormality. 2. No acute osseous abnormality of the cervical spine. 3. Nonacute findings as described. Report Dictated By: Ryan Sage MD at 01/28/2018 7:09 AM Report E-Signed By: Ryan Sage MD at 01/28/2018 7:19 AM WSN:[id number]
--- NOTE | 2018-01-28 07:23 | RADIOLOGY IMAGING REPORT ---
FACILITY: [facility] - [place] PATIENT NAME: Kay Liu : 1965 MR: [id number] V: [id number] EXAM DATE: ORDERING PHYSICIAN: NIKITA WEBB TECHNOLOGIST: Location: [facility] [place] Patient: Kay Liu : 1965 Visit/Account:[id number] Date of Sevice: 01/28/2018 CT Head without contrast and CT Cervical spine: Indication: Fall. Comparison: Facial bone radiographs 09/26/2017 Technique: CT head: Axial CT images were obtained through the brain from the skull base to the verte x without administration of IV contrast. Reformatted coronal and sagittal images were also obtained. Technique: CT cervical spine: Axial CT imaging of the cervical spine was performed. 2-D sagittal and coronal CT reformats were also obtained. One of the following dose optimization techniques was utilized in the performance of this exam: Autom ated exposure control; adjustment of the mA and/or kV according to the patient's size; or use of an i terative reconstruction technique. Specific details can be referenced in the facility's radiology C T exam operational policy. FINDINGS: CT head: No evidence of mass, mass effect, or midline shift. No acute intracranial hemorrhage or acute territorial infarction. No fracture. Globes and orbits are normal. Small retention cyst and mild mucosal thickening in the maxillary sinuses. The visualized paranasal sinuses and mastoid air spaces are otherwise clear. 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 CT cervical spine: No acute abnormality of cervical vertebral body height and alignment. No cervical spine fracture. T here is no prevertebral soft tissue thickening. Moderate spondylosis at C5-6 with associated neural foraminal and spinal canal narrowing. Remaining visualized cervical soft tissues are unremarkable. The airway is patent. The lung apices are clear. IMPRESSION: 1. No acute intracranial abnormality. 2. No acute osseous abnormality of the cervical spine. 3. Nonacute findings as described. Report Dictated By: Ryan Sage MD at 01/28/2018 7:09 AM Report E-Signed By: Ryan Sage MD at 01/28/2018 7:19 AM WSN:[id number]
[2018-01-28] MEDS ORDERED: CYCLOBENZAPRINE HCL 10 MG TAB PO ONE (07:35)
== END 2018-01-28 08:07 | disposition home or self-care (01) ==
LOC: ER 06:28
DX: M62.830 Muscle spasm of back (principal); S00.83XA Contusion of other part of head, initial encounter
CPT/HCPCS: 70450; 72125; 99283

== ENCOUNTER → 2018-01-28 | Outpatient (CLI) | payer BC ==
[2016-04-22 11:17] VITALS: BMI 19.5
[~2018-01-28] MED LIST changes: +IBUP600T22 PO; +[UNRECOGNIZED DRUG - CODE] TP
== END ==
LOC: AMB 06:06
PROVIDERS: ATTEND Nurse Practitioner
DX: M54.5 Low back pain (principal); S00.12XA Contusion of left eyelid and periocular area, initial encounter
CPT/HCPCS: A0425; A0429

== ENCOUNTER 2018-02-11 17:28 | Emergency (ER) | payer BC ==
[2016-04-22 11:17] VITALS: Wt 56.7 kg
[2018-02-11 17:30] VITALS: BP 133/88
--- NOTE | 2018-02-11 17:39 | ER Report ---
History and Physical Time Seen By MD: 17:39 Hx. of Stated Complaint: PT WAS FOUND HITTING HERSELF IN THE SIDE OF THE HEAD BY LOCAL PD. HAS BRUISING TO BOTH CHEEKS, BUMP ON RIGHT CONGREGATIONAL, BUMP/ABBRASSION TO LEFT CONGREGATIONAL HPI/ROS CHIEF COMPLAINT: Self abuse HISTORY OF PRESENT ILLNESS: 52-year-old female patient presents to emergency room with complaint of self abuse. Patient was picked up by the police and EMS was called. She had been seen earlier today walking on [facility]. The person who called in to dispatch inform them that she had blood in her hair. Patient was not found at that time. A few hours later please also did witness the patient and noted that she was hitting herself in the head. EMS was contacted and they brought her in. Patient denies any dizziness, nausea, vomiting or diarrhea. She states that she is unsure as to why she was hitting herself. She denies having any pain. REVIEW OF SYSTEMS: Respiratory: No cough, no dyspnea. Cardiovascular: No chest pain, no palpitations. Gastrointestinal: No vomiting, no abdominal pain. Musculoskeletal: No back pain. Allergies: Coded Allergies: citric acid (Unverified Allergy, Intermediate, HIVES, 09/26/17) Sulfa (Sulfonamide Antibiotics) (Verified Allergy, Unknown, 09/26/17) codeine (Unverified Allergy, Unknown, GI DISTRESS, 09/26/17) fluoxetine HCl (Verified Allergy, Unknown, 09/26/17) Home Meds Reported Medications Trolamine Salicylate (ASPERCREME) 177.4 Ml Lotion, 1 MAHNAZ TP TID Y for PAIN 10/11/17 Ibuprofen (IBUPROFEN) 600 Mg Tablet, 1 TAB PO Q6H Y for PAIN, TAB 10/11/17 Risperidone (RISPERDAL CONSTA) 37.5 Mg/2 Ml/Syr Syr, 37.5 MG IM ONLY Q2WK, SYR 09/27/17 Past Medical/Surgical History Patient has past medical history of substance abuse, alcohol use, schizophrenia , depression, anxiety. Patient has no pertinent surgical history. Reviewed Nurses Notes: Yes Hx Smoking: Yes Smoking Status: Former Smoker, Light Tobacco Smoker Exposure to Second Hand Smoke?: No Hx Substance Use Disorder: Yes Hx Alcohol Use: Yes Constitutional Vital Sign - Last 24 Hours 02/11/18 17:30 Temp 99.9 Resp 14 B/P (MAP) 133/88 Pulse Ox 94 O2 Delivery Room Air Physical Exam General Appearance: The patient is alert, has no immediate need for airway protection and no current signs of toxicity. ENT: Tympanic membranes are pearly-mendieta, auditory canals are patent, mucous membranes are moist. Respiratory: Chest is non tender, lungs are clear to auscultation. Cardiac: regular rate and rhythm Gastrointestinal: Abdomen is soft and non tender, no masses, bowel sounds normal. Musculoskeletal: Neck: Neck is supple and non tender. Extremities have full range of motion and are non tender. Skin: No rashes or lesions. Patient has small 0.5 cm laceration on the left side of her forehead. She is bruising to the right side of the face. DIFFERENTIAL DIAGNOSIS: After history and physical exam differential diagnosis was considered for self abuse, depression, schizophrenia. Medical Decision Making Data Points Result Diagram: 02/11/18180702/11/181807 Laboratory Hematology Test 02/11/18 18:06 02/11/18 18:08 Urine Color Yellow Urine Clarity Clear Urine pH 5.0 pH (4.8-9.5) Urine Specific [place] 1.015 Urine Protein Negative mg/dL (NEGATIVE) Urine Glucose (UA) Negative mg/dL (NEGATIVE) Urine Ketones Negative mg/dL (NEGATIVE) Urine Blood Negative (NEGATIVE) Urine Nitrite Negative (NEGATIVE) Urine Bilirubin Negative (NEGATIVE) Urine Urobilinogen Negative mg/dL (0.2-1.9) Urine Leukocyte Esterase Negative (NEGATIVE) Urine RBC 1 /HPF (0-2/HPF) Urine WBC 1 /HPF (0-5/HPF) Urine Squamous Epithelial Cells Many /LPF (</=FEW) Urine Bacteria Few /HPF (NONE-FEW) Urine Hyaline Casts Few /LPF (NONE-FEW) Urine Mucus Few /HPF (NONE-FEW) Urine HCG, Qualitative Negative (NEGATIVE) Urine Opiates Screen Negative Urine Barbiturates Screen Negative Ur Tricyclic Antidepressants Screen Negative Urine Phencyclidine Screen Negative Urine Amphetamines Screen Negative Urine Benzodiazepines Screen Negative Urine Cocaine Screen Negative Urine Cannabinoids Screen Negative Red Blood Count 4.54 M/uL (4.17-5.56) Mean Corpuscular Volume 87.3 fL (80.0-96.0) Mean Corpuscular Hemoglobin 30.5 pg (26.0-33.0) Mean Corpuscular Hemoglobin Concent 34.9 g/dL (32.0-36.0) Red Cell Distribution Width 15.2 % (11.5-14.5) Mean Platelet Volume 7.9 fL (7.2-11.1) Neutrophils (%) (Auto) 70.9 % (39.4-72.5) Lymphocytes (%) (Auto) 23.5 % (17.6-49.6) Monocytes (%) (Auto) 4.0 % (4.1-12.4) Eosinophils (%) (Auto) 0.9 % (0.4-6.7) Basophils (%) (Auto) 0.7 % (0.3-1.4) Nucleated RBC Relative Count (auto) 0.0 /100WBC Neutrophils # (Auto) 5.4 K/uL (2.0-7.4) Lymphocytes # (Auto) 1.8 K/uL (1.3-3.6) Monocytes # (Auto) 0.3 K/uL (0.3-1.0) Eosinophils # (Auto) 0.1 K/uL (0.0-0.5) Basophils # (Auto) 0.1 K/uL (0.0-0.1) Nucleated RBC Absolute Count (auto) 0.00 K/uL Sodium Level 139 mmol/L (137-145) Potassium Level 3.8 mmol/L (3.5-5.0) Chloride Level 103 mmol/L (98-107) Carbon Dioxide Level 22 mmol/L (22-31) Blood Urea Nitrogen 14 mg/dl (7-18) Creatinine 0.60 mg/dl (0.52-1.04) Glomerular Filtration Rate Calc > 60.0 Random Glucose 90 mg/dl (75-110) Calcium Level 9.3 mg/dl (8.4-10.2) Magnesium Level 2.0 mg/dl (1.7-2.2) Total Bilirubin 0.4 mg/dl (0.2-1.3) Aspartate Amino Transf (AST/SGOT) 32 U/L (0-35) Alanine Aminotransferase (ALT/SGPT) 31 U/L (0-56) Alkaline Phosphatase 118 U/L (0-126) Total Protein 7.4 gm/dl (6.3-8.2) Albumin 4.2 g/dl (3.5-5.0) Salicylates Level < 10 mg/L Salicylate Last Dose Date unk Acetaminophen Level < 10 ug/ml Serum Alcohol 94 mg/dl Chemistry Test 02/11/18 18:06 02/11/18 18:08 Urine Color Yellow Urine Clarity Clear Urine pH 5.0 pH (4.8-9.5) Urine Specific [place] 1.015 Urine Protein Negative mg/dL (NEGATIVE) Urine Glucose (UA) Negative mg/dL (NEGATIVE) Urine Ketones Negative mg/dL (NEGATIVE) Urine Blood Negative (NEGATIVE) Urine Nitrite Negative (NEGATIVE) Urine Bilirubin Negative (NEGATIVE) Urine Urobilinogen Negative mg/dL (0.2-1.9) Urine Leukocyte Esterase Negative (NEGATIVE) Urine RBC 1 /HPF (0-2/HPF) Urine WBC 1 /HPF (0-5/HPF) Urine Squamous Epithelial Cells Many /LPF (</=FEW) Urine Bacteria Few /HPF (NONE-FEW) Urine Hyaline Casts Few /LPF (NONE-FEW) Urine Mucus Few /HPF (NONE-FEW) Urine HCG, Qualitative Negative (NEGATIVE) Urine Opiates Screen Negative Urine Barbiturates Screen Negative Ur Tricyclic Antidepressants Screen Negative Urine Phencyclidine Screen Negative Urine Amphetamines Screen Negative Urine Benzodiazepines Screen Negative Urine Cocaine Screen Negative Urine Cannabinoids Screen Negative White Blood Count 7.6 k/uL (4.5-11.0) Red Blood Count 4.54 M/uL (4.17-5.56) Hemoglobin 13.8 g/dL (12.0-16.0) Hematocrit 39.6 % (34.0-47.0) Mean Corpuscular Volume 87.3 fL (80.0-96.0) Mean Corpuscular Hemoglobin 30.5 pg (26.0-33.0) Mean Corpuscular Hemoglobin Concent 34.9 g/dL (32.0-36.0) Red Cell Distribution Width 15.2 % (11.5-14.5) Platelet Count 213 K/uL (150-450) Mean Platelet Volume 7.9 fL (7.2-11.1) Neutrophils (%) (Auto) 70.9 % (39.4-72.5) Lymphocytes (%) (Auto) 23.5 % (17.6-49.6) Monocytes (%) (Auto) 4.0 % (4.1-12.4) Eosinophils (%) (Auto) 0.9 % (0.4-6.7) Basophils (%) (Auto) 0.7 % (0.3-1.4) Nucleated RBC Relative Count (auto) 0.0 /100WBC Neutrophils # (Auto) 5.4 K/uL (2.0-7.4) Lymphocytes # (Auto) 1.8 K/uL (1.3-3.6) Monocytes # (Auto) 0.3 K/uL (0.3-1.0) Eosinophils # (Auto) 0.1 K/uL (0.0-0.5) Basophils # (Auto) 0.1 K/uL (0.0-0.1) Nucleated RBC Absolute Count (auto) 0.00 K/uL Glomerular Filtration Rate Calc > 60.0 Calcium Level 9.3 mg/dl (8.4-10.2) Magnesium Level 2.0 mg/dl (1.7-2.2) Total Bilirubin 0.4 mg/dl (0.2-1.3) Aspartate Amino Transf (AST/SGOT) 32 U/L (0-35) Alanine Aminotransferase (ALT/SGPT) 31 U/L (0-56) Alkaline Phosphatase 118 U/L (0-126) Total Protein 7.4 gm/dl (6.3-8.2) Albumin 4.2 g/dl (3.5-5.0) Salicylates Level < 10 mg/L Salicylate Last Dose Date unk Acetaminophen Level < 10 ug/ml Serum Alcohol 94 mg/dl Toxicology Test 02/11/18 18:06 02/11/18 18:08 Urine Opiates Screen Negative Urine Barbiturates Screen Negative Ur Tricyclic Antidepressants Screen Negative Urine Phencyclidine Screen Negative Urine Amphetamines Screen Negative Urine Benzodiazepines Screen Negative Urine Cocaine Screen Negative Urine Cannabinoids Screen Negative Salicylates Level < 10 mg/L Salicylate Last Dose Date unk Acetaminophen Level < 10 ug/ml Serum Alcohol 94 mg/dl Urinalysis Test 02/11/18 18:06 Urine Color Yellow Urine Clarity Clear Urine pH 5.0 pH (4.8-9.5) Urine Specific [place] 1.015 Urine Protein Negative mg/dL (NEGATIVE) Urine Glucose (UA) Negative mg/dL (NEGATIVE) Urine Ketones Negative mg/dL (NEGATIVE) Urine Blood Negative (NEGATIVE) Urine Nitrite Negative (NEGATIVE) Urine Bilirubin Negative (NEGATIVE) Urine Urobilinogen Negative mg/dL (0.2-1.9) Urine Leukocyte Esterase Negative (NEGATIVE) Urine RBC 1 /HPF (0-2/HPF) Urine WBC 1 /HPF (0-5/HPF) Urine Squamous Epithelial Cells Many /LPF (</=FEW) Urine Bacteria Few /HPF (NONE-FEW) Urine Hyaline Casts Few /LPF (NONE-FEW) Urine Mucus Few /HPF (NONE-FEW) Urine HCG, Qualitative Negative (NEGATIVE) ED Course/Re-evaluation ED Course Patient was admitted and examined, history and physical were obtained. Differential diagnoses were considered. I examination patient did have blood to the left side of her forehead, but was cleaned and showed a small laceration. Patient did have bruising to the right side of her face. The labs for a behavioral [facility] admission were done. Results were unremarkable. I did call and speak with the patient's brother, who is her guardian. He was okay with her being admitted to [facility]. I discussed case with Dr. Saldana who agreed to accept the patient for admission. I discussed this with the patient who verbalized understanding and agreement. Decision to Disposition Date: February 11, 2018 Decision to Disposition Time: 18:52 Depart Departure Latest Vital Signs Vital Signs Date Time Temp Pulse Resp B/P (MAP) Pulse Ox O2 Delivery O2 Flow Rate FiO2 02/11/18 17:30 99.9 14 133/88 94 Room Air Impression: Primary Impression: Self-harming behavior Additional Impression: Schizophrenia Condition: Condition Unchanged Disposition: XFER TO [facility] Problem Qualifiers Additional Impression: Schizophrenia Schizophrenia type: unspecified Qualified Codes: F20.9 - Schizophrenia, unspecified NIRMAL QUEEN February 11, 2018 17:39
[2018-02-11] MEDS ORDERED: NICOTINE 21 MG/24 HR PATCH TD ONE (17:40)
[2018-02-11 18:17] LABS: PLATELET COUNT, AUTOMATED 213 K/uL (150-450)
== END 2018-02-11 19:20 ==
LOC: ER 17:46
DX: F20.9 Schizophrenia, unspecified (principal); Y33.XXXA Other specified events, undetermined intent, initial encounter; F32.9 Major depressive disorder, single episode, unspecified; F41.9 Anxiety disorder, unspecified
CPT/HCPCS: 36415; 80305; 80320; 80329; 81001; 81025; 82040; 82247; 82310; 82374; 82435; 82565; 82947; 83735; 84075; 84132; 84155; 84295; 84443; 84450; 84460; 84520; 85025; 99285

== ENCOUNTER 2018-02-11 19:08 | Inpatient (IN) | payer BC ==
[2016-04-22 11:17] VITALS: Ht 167.6 cm; Wt 55.3 kg
[~2018-02-11] VITALS: Ht 167.6 cm; Wt 55.3 kg
[2018-02-11] MEDS ORDERED: MAG HYD/AL HYD/SIMETH 30ML UDC PO PRN (19:35)
[2018-02-11 19:41] VITALS: BP 120/89
[2018-02-12 06:00] VITALS: BP 127/81
[2018-02-12] MEDS: MULTIVITAMINS TAB PO SCH (08:13)
[2018-02-12] MEDS ORDERED: NICOTINE 7 MG/24 HR PATCH TD SCH (09:00)
[2018-02-12 12:18] VITALS: BP 130/89
[2018-02-12] MEDS: NICOTINE INH SYSTEM 10 MG/INH INH PRN (15:29)
[2018-02-12] MEDS: NICOTINE CARTRIDGE 1 EA PO PRN (15:30)
--- NOTE | 2018-02-12 16:43 | HISTORY AND PHYSICAL ---
DATE OF ADMISSION: February 11, 2018 Patient was seen on a.m. of February 12, 2018 approximately 1000 hours for note concerning this dictation. PRESENTING PROBLEM/CHIEF COMPLAINT Patient, who has chronic persisting mental illness and diagnosis of schizophrenia, was brought into the emergency room by law enforcement. Patient has a guardian who is her brother who allowed patient to be admitted. HISTORY OF PRESENT ILLNESS This is a well-known 52-year-old female who is well known in the [place] area. Patient has a history of ambulating around [place] and is well known to [place] as a whole. Patient was last on the Behavioral Health Unit in September of 2017. At that time she was discharged to [facility] to await placement in [facility]. Apparently patient did quite well at [facility] and interacted well in a group environment prior to being discharged to [facility] here in [place]. Since that time it is believed patient has been following up with medication treatments including Risperdal Consta injections which are given every two weeks. Patient notably had an increase from 37.5 to 50 mg dosing on last injection, and patient does continue to remain available for said injection at prescribed time at [facility]. Patient has resumed ambulating around [place], and notably in the last two to three weeks patient has reportedly taken up smoking again, and notably patient was mildly intoxicated at the time of admission. Patient previously had quit smoking and is not known to be a drinker. During initial interview patient was cooperative and very quiet. Patient not answering questions related to bruising around her face, which is believed to have been caused by herself punching herself. This resulted in patient having some blood about her face. Police were called to do a welfare check and eventually patient was witnessed hitting herself in her face by police prior to being brought into the emergency room. Patient was cleared in the emergency room for any medical concerns including self-abusive behavior, and patient was brought to the Behavioral Health Unit without incident. Patient not communicating as to self-harming behaviors or any particular concerns that bother her. Patient states she is, "I'm doing all right." Patient again has a long-standing history of schizophrenia. MEDICAL HEALTH HISTORY Patient currently following up with outpatient care through [facility] here in [place] and on Risperdal Consta injections believe to have been recently increased to 50 mg. Patient is believed to have suffered her first psychotic break around the age of 25, had been hospitalized at that time. She has been in the [facility] system. Patient has a guardian which is her brother. Patient's diagnosis is best described as schizophrenia at this time. Patient has recently taken up smoking and drinking alcohol again. FAMILY PSYCHIATRIC HISTORY Family genetic history of psychiatric illness is significant for alcoholism on the father's side, but not in the father himself. Patient does have one brother who is not known to suffer from any significant psychiatric illness, and extensive mood disorders in multiple suicides on the mother's side of the family do exist. PAST MEDICAL HISTORY Patient in the past has had complaints of pelvic pain. This seems to be resolved now, and patient seems to be ambulating well and not favoring either side, which has been notable in the past. Patient denies any medical complaints. Patient has been examined in the emergency room for self- inflected superficial wounds to the head and scalp. ALLERGIES 1. SULFA ANTIBIOTICS. 2. CODEINE. 3. FLUOXETINE. SOCIAL HISTORY Patient was born in [place], raised all over. Her father was a traveling criminal justice professor when she was young. Parents were at the time of her . Her mother is . It is believed her father is in a intermediate at this time, but it is unknown. Patient has one brother approximately four years older who is her current guardian. Patient did graduate high school , but never was able to obtain gainful employment. She has never , has had no children, not believed to have a significant other. She resides in [facility] here in [facility]. LEGAL HISTORY Patient is not believed to have any extensive legal history with he exception of multiple contacts with police due to concerned citizens calling in welfare checks after patient was found walking in town over the years in high traffic areas. She has had some previously negative interactions with various businesses as well secondary to schizophrenic condition. SUBSTANCE ABUSE HISTORY Patient admits to using nicotine in the past, but had quit many years ago. Patient is known now to have recently engaged in smoking behaviors, which she states is a pack a day currently, and also drinking alcohol. No other illicit drugs are believed to be problematic with this patient. PHYSICAL EXAMINATION GENERAL: Please see emergency room notes. Notable for well-known and well- recognized 52-year-old female. VITAL SIGNS: At the time of admission, temperature 99.9, pulse 14, blood pressure 133/88, pulse oximetry 94 on room air. LABORATORY DATA CBC overall unremarkable. CMP unremarkable. TSH 0.38, slightly low. Urinalysis unremarkable. screen negative. Toxicology screen negative with serum alcohol level 94. at the time of admission. MENTAL STATUS EXAMINATION GENERAL APPEARANCE, BEHAVIOR AND ATTITUDE: A 52-year-old female of thin body habitus with flat affect, making very limited eye contact. No periods of tearfulness. Bizarre posturing and stare continue. SPEECH: Soft and poverty of speech notable. MOOD: "I'm all right." AFFECT: Flat. THOUGHT PROCESSES: Appear goal directed in some ways. Patient stating, "When will I be leaving here." No obvious loose associations or flight of ideas. THOUGHT CONTENT: Likely ongoing hallucinations. Patient denying any concerns which need further evaluation. Patient is not believed to be suicidal or homicidal ideation. SENSORIUM: Appeared clear. COGNITION: Alert and oriented to person, place, time, but only partially to situation. MEMORY: Immediate, recent and remote historically intact. INTELLIGENCE: Historically average based on previous knowledge of this patient. INSIGHT AND JUDGMENT: Patient has resorted to nicotine use and alcohol consumption, as well as increase in engaging in self-abusive behaviors. This is known to take place with recently somewhat increased Risperdal Consta, with which patient has been compliant. ASSESSMENT This is a 52-year-old female who has a long-standing history being in the [facility] and walking considerable distance as part of her daily routine. Patient is following up with [facility] and living in their housing, and his believed to be taking Risperdal Consta shots as prescribed. Patient unfortunately taking up smoking again as well as consumption of alcohol, and patient's mood seems to be decompensating as evidenced by self-abusive behaviors requiring police intervention. At this time we will meet with guardian and continue to evaluate this patient. It is likely that patient's guardian will be encouraged to look for a permanet structured living environment for this patient at this time. DIAGNOSES PER DSM-V Schizophrenia. Alcohol intoxication. Patient isolated and limited due to chronic persisting mental illness. PLAN 1. Admit to the unit. 2. Necessary precautions to be implemented. 3. Patient will participate in individual and group therapy to the best of her ability. 4. Risperdal Consta will be continued at this time. Will look into other medications as necessary. 5. Collateral information to be obtained as necessary. 6. Will look into potential placement in structured living environment, after working and talking, discussing case with patient's guardian. 7. Estimated length of stay unknown at this time. MTDD
[2018-02-13] MEDS: MULTIVITAMINS TAB PO SCH (08:26)
[2018-02-13] MEDS ORDERED: PATCH REMOVAL 1 EA TP SCH (09:00)
--- NOTE | 2018-02-13 11:12 | BHS Progress Note ---
S - Subjective Progress Notes Subjective Patient continues to do very well on the unit, and notably eating food from open containers this AM, which in the past has been a focus of paranoia. Ambulating well, poverty of speech continues, but patient denies any concerns. Spoke with patient's guardian brother who has decided that this patient would likely benefit from jail living. This provider is in full support, as this patient has done well previously while at [facility]. Patient has recently taken up drinking alcohol, which is a point of concern for this patient who frequently ambulates very near traffic. Suicidal Ideation: None Homicidal Ideation: None S - Objective Physical Exam Vital Signs Vital Signs Date Time Temp Pulse Resp B/P (MAP) Pulse Ox O2 Delivery O2 Flow Rate FiO2 02/12/18 12:18 99.6 113 130/89 (103) 95 Room Air Muscle Strength and Tone: WNL Gait and Station: Steady S Medications Reviewed: Side Effects, Benefits of Medication, Risks Allergies Reviewed: Yes Mental Status Exam General Appearance: Casual, Well Groomed, Good Eye Contact, Cooperative, Polite , Good Interaction, No Unkept, No Tearful, No Psychomotor Agitation, No Psychomotor Retardation, No Bizarre Mannerisms, No Tics Speech: Clear, No Spontaneous, No Normal Rate, No Normal Rhythm, No Normal Volume, Normal Tone, Delayed, No Slurred, No Garbled, No Rambling, No Inappropriate Mood: Euthymic (stated good) Affect: Calm, No Sad, No Neutral, Flat, Withdrawn, No Tearful, No Anxious, No Agitated Thought Process: Organized, No Logical, Goal Directed, Loose Associations, Flight of Ideas Thought Content: No Suicidal Ideation, No Homicidal Ideation, No Delusions, Auditory Halllucinations (probable ), No Visual Hallucinations, No Thought Broadcasting, No Ideas of Reference, No Obsessions, No Compulsions Sensorium: Clear Cognition: Alert & Oriented-Person, Alert & Oriented-Place, Alert & Oriented- Time, [id number] Memory: Immediate, Recent, Remote Intelligence: Average (historically average) Insight Judgment: Poor (limited by chronic persisting mental illness, and alcohol use. ) [facility] Assessment and Plan [id number]-[id number] Encounter Date: February 13, 2018 [id number] Encounter Time: 11:00 [facility] Plan: Necessary Precautions, Individual/Group Therapy, Admin/Titrate Meds, Educate Patient Tobacco Medications: Started Multpiple Antipsychotics Used: No Problems: (1) Schizophrenia Status: Chronic Condition 1. contionue treatment. 2. risperdal consta injection today. 3. look into jail placement. Problem Qualifiers (1) Schizophrenia: Schizophrenia type: paranoid schizophrenia Qualified Codes: F20.0 - Paranoid schizophrenia JUMANA KEARNEY MD February 13, 2018 11:12
[2018-02-13 13:05] VITALS: BP 102/62
[2018-02-13] MEDS ORDERED: [UNRECOGNIZED DRUG - CODE] IM ONLY (14:31)
--- NOTE | 2018-02-13 18:41 | BHS - Psychiatric Evaluation ---
ER - Title 25 MHE Evaluation Title 25 Evaluation Patient Detained By: Physician, Therapist ([facility] Referral Source: Professional: Lead Clinician at [facility] Date Patient Detained: February 13, 2018 Time Patient Detained: 11:55 Date Correction Expires: February 18, 2018 Time Correction Expires: 11:55 Legal Status: Police Hold: No Legal Status: Residence: County Resident, State Resident Assessment Data Provided By: Therapist, Family Member(s), Other Source ( Electronic record, and [facility] staff) HPI/ROS: Per Mental Health therapist Chioma Munoz, "Kay was seen with blood on her face on spring and . She was called in twice to police dispatch and the [employer] picked her up and brought the to the ER. The police did witness her hitting herself in the head. She stated in the ER she was unsure as to why she was hitting herself. History of mental health detentions. Has been in long term for 2 days for theft of cigarettes. Father's assistant district attorney reports over 100 contacts with police over past 2 years for disruptive behavior in public." Admit due to SI or Attempt: No Suicide Plan: No Plan Alcohol or Drugs Involved: Yes (Patient admits to using nicotine in the past, but had quit many years ago. Patient is known now to have recently engaged in smoking behaviors, which she states is a pack a day currently, and also drinking alcohol. No other illicit drugs are believed to be problematic with this patient.) Is Patient Info Reliable: Yes Is Collateral Info Reliable: Yes Current [facility] Mental Status Exam General Appearance: No Good Eye Contact, Cooperative, Unkept Speech: No Normal Volume (very quiet) Mood: Other (Mood states less apparent in patient presentation related to schizophrenia.) Affect: Flat, Withdrawn Thought Process: Other (Scarcely verbalized. Does not express rationale for hitting herself.) Thought Content: Other (Patient responds in a psychotic fashion at times, yelling profanities when she perceives a threat. These are scenarios where there is no danger. ) Cognition: Alert & Oriented-Person, Alert & Oriented-Place Memory: Immediate Insight Judgment: Poor Sleep: Normal Hallucinations: Auditory Delusions: Paranoia (Believes there are crabs in her food.) Current Risk & History Current Dangerous Risk Assessm: Ubable to Care for Self Past Dangerous Risk Assessm: Self-Injurious Behaviors (Hitting self, walking in traffic) Prior Alcohol/Drug Abuse Historical use of distal alcohol, cigarettes, and marijuana. Proximal use of alcohol and cigarettes. Previous Suicide Attempt: No Previous Attempt Previous Psychiatric Illness: Yes Previous Psychiatric Treatment: Yes Risk Assessment & Disposition Evaluated Risk Assessment: Risk for patient's safety is quite high. She is easily victimized when she is unstable. Patient has had multiple psychiatric hospitalizations here at [facility]. Most recently she has been exhibiting self-harming behaviors by drinking alcohol and hitting herself. She is a community member who has notoriety for walking in traffic and or yelling in businesses at threats she perceives as part of her psychosis. Her guardian does not live in town, and patient's well- being cannot be observed by him at this time. Patient's guardian feels it is time for patient to receive more support, as she is doing poorly with current level of supported housing and case management at [facility]. It is no longer sufficient to maintain her safety even though it was appropriate for her for a long time. Further decompensation could easily result in a fatal accident for patient. Impression: Primary Impression: Self-harming behavior Additional Impressions: Schizophrenia Altered mental status Meets Mental Illness Req.: Yes Meets Dangerousness Req.: Yes (Patient has recently taken up drinking alcohol, which is a point of concern for this patient who frequently ambulates very near traffic. Has reportedly been hitting herself.) Emergency Correction to be: Upheld Decision Comment: Patient has had multiple psychiatric hospitalizations here at [facility]. Most recently she has been exhibiting self harming behaviors by drinking alcohol and hitting herself. She is a community member who has notoriety for walking in traffic and or yelling in businesses at threats that she perceives as part of her psychosis. Date of Decision: February 13, 2018 Time of Decision: 18:30 Patient is Medically Stable at: Yes Disposition: [facility] Problem Qualifiers JEREMIAH WALTON LPC February 13, 2018 18:41
[2018-02-13 18:47] VITALS: BP 116/85
[2018-02-14 05:30] VITALS: BP 107/75
[2018-02-14 08:00] VITALS: BP 100/72
[2018-02-14] MEDS: MULTIVITAMINS TAB PO SCH (08:17)
[2018-02-14] MEDS ORDERED: RISPERIDONE MICROSPHERES 50 MG/2 ML IM ONE (09:00)
--- NOTE | 2018-02-14 10:50 | BHS Progress Note ---
S - Subjective Progress Notes Subjective Patient tolerant of risperdal consta injection yesterday, and continues to be cooperative on the unit. Eating, and sleeping well, unfortunately fell on the unit this AM, but review of camera footage does not indicate need of further evaluation. Patient denies complaints, but poverty of speech remains prominent. No other concerns today. Will continue to meet with guardian to discuss alf plans after discharge. Will encourage structured living placement. Suicidal Ideation: None Homicidal Ideation: None S - Objective Physical Exam Vital Signs Vital Signs Date Time Temp Pulse Resp B/P (MAP) Pulse Ox O2 Delivery O2 Flow Rate FiO2 02/14/18 08:00 94 Room Air 02/14/18 08:00 97.5 102 100/72 (81) 02/14/18 05:30 15 Hematology Test 02/13/18 11:16 Chemistry Test 02/13/18 11:16 Muscle Strength and Tone: WNL Gait and Station: Steady [facility] Medications Reviewed: Side Effects, Benefits of Medication, Risks Allergies Reviewed: Yes Mental Status Exam General Appearance: Casual, No Good Eye Contact, Cooperative, Polite, Unkept ( somewhat), Psychomotor Retardation, Bizarre Mannerisms, No Tics Speech: No Normal Volume (very quiet), Normal Tone, Delayed Mood: Other (Mood states less apparent in patient presentation related to schizophrenia.) Affect: No Full and Appropriate, Flat, Withdrawn Thought Process: Other (Scarcely verbalized. Does not express rationale for hitting herself.) Thought Content: No Suicidal Ideation, No Homicidal Ideation, Auditory Halllucinations (likely present), Other (Patient responds in a psychotic fashion at times, yelling profanities when she perceives a threat. These are scenarios where there is no danger. ) Sensorium: Clear Cognition: Alert & Oriented-Person, Alert & Oriented-Place, Other (difficult to assess fully) Memory: Immediate, Recent, Remote Intelligence: Average (historically average) Insight Judgment: Poor (chronic persisting mental illness, schizophrenia) [facility] Assessment and Plan [id number] Encounter Date: February 14, 2018 [id number] Encounter Time: 10:00 [facility] Plan: Necessary Precautions, Individual/Group Therapy, Admin/Titrate Meds, Educate Patient Tobacco Medications: Started Multpiple Antipsychotics Used: No Problems: (1) Schizophrenia Status: Chronic Condition 1. continue treatment. 2. monitor for any complications from fall. 3. look into director of medical education placement. Problem Qualifiers (1) Schizophrenia: Schizophrenia type: paranoid schizophrenia Qualified Codes: F20.0 - Paranoid schizophrenia JUMANA KEARNEY MD February 14, 2018 10:50
--- NOTE | 2018-02-14 11:12 | BHS - Psychiatric Evaluation ---
Title 25 Evaluation Hearing Report: 109 Date of Report: February 14, 2018 Examiner: Heather Hodge M.S., L.P.C Patient Detained By: Physician, Therapist (Chioma Munoz M.S, L.P.CMandy) 24hr Mental Health Eval By: Heather Hodge M.S., EbenC Date Patient Detained: February 13, 2018 Time Patient Detained: 11:55 Date Fpc Expires: February 18, 2018 Time Fpc Expires: 11:55 Legal Status: Police Hold: No Legal Status: Relationship: Single Legal Status: Residence: [facility] Resident, State Resident Referral Source: Professional: Lead Clinician at [facility] Assessment Data Provided By: Therapist, Family Member(s), Other Source ( Electronic record, and [facility] staff) Chief Complaint: Patient has become destabilized again, and her guardian believes her increasing dangerousness, especially hitting herself and the psychosis related to hitting herself katie a [facility] the optimal level of support for her. HPI/ROS: Per Dr. Houston Saldana," This is a well-known 52-year-old female who is well known in the [facility]. Patient has a history of ambulating around [place] and is well known to [place] as a whole. Patient was last on the Behavioral Health Unit in September of 2017. At that time she was discharged to [facility] to await placement in [facility]. Apparently patient did quite well at [facility] and interacted well in a group environment prior to being discharged to [facility] housing here in [place]. Since that time it is believed patient has been following up with medication treatments including Risperdal Consta injections which are given every two weeks. Patient notably had an increase from 37.5 to 50 mg dosing on last injection, and patient does continue to remain available for said injection at prescribed time at [facility]. Patient has resumed ambulating around [place], and notably in the last two to three weeks patient has reportedly taken up smoking again, and notably patient was mildly intoxicated at the time of admission. Patient previously had quit smoking and is not known to be a drinker. During initial interview patient was cooperative and very quiet. Patient not answering questions related to bruising around her face, which is believed to have been caused by herself punching herself. This resulted in patient having some blood about her face. Police were called to do a welfare check and eventually patient was witnessed hitting herself in her face by police prior to being brought into the emergency room. Patient was cleared in the emergency room for any medical concerns including self-abusive behavior, and patient was brought to the Behavioral Health Unit without incident. Patient not communicating as to self-harming behaviors or any particular concerns that bother her. Patient states she is, "I'm doing all right." Patient again has a long-standing history of schizophrenia. " Diagnosis: Schizophrenia. Alcohol intoxication. Patient isolated and limited due to chronic persisting mental illness. Risk Formulation: Risk for patient's safety is quite high. She is easily victimized when she is unstable. Patient has had multiple psychiatric hospitalizations here at [facility]. Most recently she has been exhibiting self-harming behaviors by drinking alcohol and hitting herself. She is a community member who has notoriety for walking in traffic and or yelling in businesses at threats she perceives as part of her psychosis. Her guardian does not live in town, and patient's well- being cannot be observed by him at this time. Patient's guardian feels it is time for patient to receive more support, as she is doing poorly with current level of supported housing and case management at [facility]. [facility] staff is deeply concerned given her display of these increasingly dangerous behaviors. It is no longer sufficient to maintain her safety even though it was appropriate for her for a long time. Further decompensation could easily result in a fatal accident for patient. Reliability of Collateral Info Patient guardian is very knowledgeable about patient, her disease progression and mitigating care. He is a very sound and stable guardian. Current Dangerous Risk Assess: Self-Injurious Behaviors Current Risk Summary: The patient "evidences behavior manifested by recent acts or omissions that, due to mental illness, the patient is unable to satisfy basic needs for nourishment, essential medical care, snf, or safety so that a substantial probability exists that , serious physical injury, serious physical debilitation, serious mental debilitation, destabilization from lack of or refusal to take prescribed psychotropic medications for a diagnosed condition or serious physical disease will imminently ensue, unless the individual receives prompt and adequate treatment for this mental illness" as evidenced by: Risk for patient's safety is quite high. She is easily victimized when she is unstable. Patient has had multiple psychiatric hospitalizations here at [facility]. Most recently she has been exhibiting self-harming behaviors by drinking alcohol and hitting herself. She is a community member who has notoriety for walking in traffic and or yelling in businesses at threats she perceives as part of her psychosis. Her guardian does not live in town, and patient's well- being cannot be observed by him at this time. Patient's guardian feels it is time for patient to receive more support, as she is doing poorly with current level of supported housing and case management at [facility]. [facility] staff is deeply concerned given her display of these increasingly dangerous behaviors. Patient was seen with blood on her face on spring and . She was called in twice to police dispatch and the [facility] picked her up and brought the to the ER. The police did witness her hitting herself in the head. She stated in the ER she was unsure as to why she was hitting herself. History of mental health detentions. Has been in senior living for 2 days for theft of cigarettes. Father's assistant city attorney reports over 100 contacts with police over past 2 years for disruptive behavior in public. Her behavior may seem criminal to community members who do not understand mental illness. It is no longer sufficient to maintain her safety even though it was appropriate for her for a long time. Further decompensation could easily result in a fatal accident for patient. She has periods of refusing to eat because she believes her food has crabs in it. The team recommends the patient remain at [facility] for the duration of her 72 hour hold, and hopes to request the patient stay up to 10 days for further evaluation and stabilization. Patient, Kay Liu will be connected with [facility] who will follow patient during admission, transition, after discharge, and for followup care. Past Dangerous Risk Assess: Self-Injurious Behaviors (Hitting self, walking in traffic) [facility] - Exam Physical Exam Vital Signs Vital Signs 02/13/18 18:47 Temp 98.2 Pulse 110 B/P (MAP) 116/85 (95) Pulse Ox 87 O2 Delivery Room Air Mental Status Exam General Appearance: No Good Eye Contact, Cooperative, Unkept Speech: No Normal Volume (very quiet) Mood: Other (Mood states less apparent in patient presentation related to schizophrenia.) Affect: Flat, Withdrawn Thought Process: Other (Scarcely verbalized. Does not express rationale for hitting herself.) Thought Content: Other (Patient responds in a psychotic fashion at times, yelling profanities when she perceives a threat. These are scenarios where there is no danger. ) Sensorium: Clear Cognition: Alert & Oriented-Person, Alert & Oriented-Place Memory: Immediate Intelligence: Average (historically average) Insight Judgment: Poor Sleep: Normal Care & Behavior on Unit Treatment Team Participation: Patient is minimally verbal, and dislikes conversations where she is required to answer with detail. She is eating this hospitalization. On some occasions at [facility] she has paranoia about here being crabs in her food. Group Attendance: Patient goes to groups an participates to the best of her ability. Patient is not able to engage in long conversations. Involvement in Tx Planning: Patient is not able to express accurate understanding of her diagnosis or needs for treatment. Involvement in Therapy: Patient is involved with professional staff at [facility], including optimal psychiatric care, case managment, and supported housing. Current Medications: Risperdal Pt. Taking Meds Voluntarily: Yes (Injectible mendications) Medication Aherence: Getting Risperdal Consta injections 50mg to prevent nonadherence. Has not been cooperative with therapy in the past, wont get into car with mattress spring encaser and won't show up for medications. Behavior on Unit: Compliant unit behavior. Sometimes is fearful of conversations and walks away. Title 25 History Psychiatric History: Patient again has a long-standing history of schizophrenia. Patient is believed to have suffered her first psychotic break around the age of 25, had been hospitalized at that time. She has been in the [facility] system. Patient has a guardian which is her brother. Patient's diagnosis is best described as schizophrenia at this time. Patient has recently taken up smoking and drinking alcohol again. Family Psychiatric Hx: Family genetic history of psychiatric illness is significant for alcoholism on the father's side, but not in the father himself. Patient does have one brother who is not known to suffer from any significant psychiatric illness, and extensive mood disorders in multiple suicides on the mother's side of the family. Depression in her mother and completed suicides on mother's side of family. Father has been reported to have a drinking problem in the past. Social History: Patient was born in [place], raised all over. Her father was a traveling professor of chemistry when she was young. Parents were at the time of her . Her mother is . It is believed her father is in a penitentiary at this time, but it is unknown. Patient has one brother approximately four years older who is her current guardian. Patient never was able to obtain gainful employment. She has never , has had no children, not believed to have a significant other. Old records reports patient stating that she was happy prior to age 13. Patient graduated from high school, and went to the [employer], but didn't continue or complete first semester. Patient has been in [facility] 6x's. [facility]- 2x, once for several years. Was ordered after being found partially dressed in a snowbank. Has a history of elopement from [facility]. Has had residential treatment in [facility] in early 1989. Has been at [facility]'s Crisis bed- [facility] and reportedly liked it. Currently pt is unemployed and living off of a trust fund. She is a client at [facility] and is living in the apartments. The plan is to look into ch[facility] settings or the [facility]. Patient is requesting to go back to her apartment at [place]. Previous Detentions: Patient has been detained previously. Prior Hospitalizations: Although patient has been detained six times at [facility] previously, she has had far more numerous law enforcement/disturbing the peace contacts. Drug & Alcohol Use: Age 16 patient reportedly drank alcohol. She was incarcerated once for stealing cigarettes, The financial support from her trust fund is adequate to support all of her purchases, and likely the theft was related to her mental illness not an inability to pay for the cigarettes. Current Alcohol Intoxication: On admission, patient did have a ASHLEY below 1. Current Living Situation: Patient lives in [facility] apartments and is assisted with case management and psychiatric care. Legal Concerns: Per Dr. Saldana, " Patient is not believed to have any extensive legal history with the exception of multiple contacts with police due to concerned citizens calling in welfare checks after patient was found walking in town over the years in high traffic areas. She has had some previously negative interactions with various businesses as well secondary to schizophrenic condition. " Patient Strengths: Patient enjoys walking and is resourceful in getting to fast food restaurants for meals. Current Medical Data: Per Dr. Saldana, "Patient in the past has had complaints of pelvic pain. This seems to be resolved now, and patient seems to be ambulating well and not favoring either side, which has been notable in the past. Patient denies any medical complaints. Patient has been examined in the emergency room for self- inflected superficial wounds to the head and scalp." Relevant Medications: HEATHER Madrigal LPC February 13, 2018 19:33
[2018-02-15 01:23] VITALS: BP 124/80
--- NOTE | 2018-02-15 06:54 | RADIOLOGY IMAGING REPORT ---
FACILITY: [facility] PATIENT NAME: Kay Liu : 1965 MR: [id number] V: [id number] EXAM DATE: ORDERING PHYSICIAN: JUMANA KEARNEY TECHNOLOGIST: Location: Patient: Kay Liu : 1965 Visit/Account:[id number] Date of Sevice: 02/15/2018 SINGLE AP RADIOGRAPH OF THE CHEST 02/15/2018 6:23 AM. INDICATION: Hypoxia and cough. COMPARISON: None. FINDINGS: Lungs are hyperexpanded with probable chronic bronchitic changes. There are peripheral septal markin gs at the lower lungs suspicious for pulmonary edema. Bibasilar consolidation/atelectasis. Question small pleural effusions. IMPRESSION: 1. Suspected mild pulmonary edema and possible small pleural effusions. 2. Bibasilar consolidation/atelectasis, possibly partially chronic. Underlying infection not exclud ed. 3. Probable chronic hyperexpansion and bronchitic changes. Report Dictated By: Ryan Sage MD at 02/15/2018 6:48 AM Report E-Signed By: Ryan Sage MD at 02/15/2018 6:50 AM WSN:[id number]
[2018-02-15] MEDS: BENZONATATE 100 MG CAP PO PRN ×2 (06:57→20:40)
[2018-02-15] MEDS: ACETAMINOPHEN 325 MG TAB PO PRN ×2 (06:57→23:07)
[2018-02-15 07:08] LABS: PLATELET COUNT, AUTOMATED 204 K/uL (150-450)
[2018-02-15] MEDS ORDERED: AZITHROMYCIN 250 MG TAB PO ONE (08:00)
[2018-02-15] MEDS: MULTIVITAMINS TAB PO SCH (08:12)
--- NOTE | 2018-02-15 10:05 | BHS Progress Note ---
BHS - Subjective Progress Notes Subjective Patient continues to interact well, and not demonstrating any self abusive behaviors. Underlying psychosis ongoing. Patient noted to likely be suffering from an upper respiratory infection currently, see imaging, will start z-pac. Patient appetite and sleep good, await [facility] catch as well. No other concerns. Will go forward with hearing to be put on the [facility] wait list, guardian /brother on board with the need for structured living at this time for this patient. Suicidal Ideation: None Homicidal Ideation: None BHS - Objective Physical Exam Vital Signs Vital Signs Date Time Temp Pulse Resp B/P (MAP) Pulse Ox O2 Delivery O2 Flow Rate FiO2 02/15/18 07:40 99.1 02/15/18 06:28 134 90 Nasal Cannula 2.0 02/14/18 05:30 15 Hematology Test 02/13/18 11:16 02/15/18 06:22 Red Blood Count 4.71 M/uL (4.17-5.56) Mean Corpuscular Volume 86.7 fL (80.0-96.0) Mean Corpuscular Hemoglobin 29.9 pg (26.0-33.0) Mean Corpuscular Hemoglobin Concent 34.5 g/dL (32.0-36.0) Red Cell Distribution Width 15.1 % (11.5-14.5) Mean Platelet Volume 8.4 fL (7.2-11.1) Neutrophils (%) (Auto) 84.0 % (39.4-72.5) Lymphocytes (%) (Auto) 7.0 % (17.6-49.6) Monocytes (%) (Auto) 8.0 % (4.1-12.4) Eosinophils (%) (Auto) 0.8 % (0.4-6.7) Basophils (%) (Auto) 0.2 % (0.3-1.4) Nucleated RBC Relative Count (auto) 0.0 /100WBC Neutrophils # (Auto) 8.9 K/uL (2.0-7.4) Lymphocytes # (Auto) 0.7 K/uL (1.3-3.6) Monocytes # (Auto) 0.8 K/uL (0.3-1.0) Eosinophils # (Auto) 0.1 K/uL (0.0-0.5) Basophils # (Auto) 0.0 K/uL (0.0-0.1) Nucleated RBC Absolute Count (auto) 0.00 K/uL Sodium Level 132 mmol/L (137-145) Potassium Level 3.9 mmol/L (3.5-5.0) Chloride Level 97 mmol/L (98-107) Carbon Dioxide Level 23 mmol/L (22-31) Blood Urea Nitrogen 14 mg/dl (7-18) Creatinine 0.60 mg/dl (0.52-1.04) Glomerular Filtration Rate Calc > 60.0 Random Glucose 119 mg/dl (75-110) Calcium Level 9.7 mg/dl (8.4-10.2) Total Bilirubin 1.1 mg/dl (0.2-1.3) Aspartate Amino Transf (AST/SGOT) 23 U/L (0-35) Alanine Aminotransferase (ALT/SGPT) 26 U/L (0-56) Alkaline Phosphatase 102 U/L (0-126) Total Protein 6.7 gm/dl (6.3-8.2) Albumin 3.9 g/dl (3.5-5.0) Chemistry Test 02/13/18 11:16 02/15/18 06:22 White Blood Count 10.5 k/uL (4.5-11.0) Red Blood Count 4.71 M/uL (4.17-5.56) Hemoglobin 14.1 g/dL (12.0-16.0) Hematocrit 40.8 % (34.0-47.0) Mean Corpuscular Volume 86.7 fL (80.0-96.0) Mean Corpuscular Hemoglobin 29.9 pg (26.0-33.0) Mean Corpuscular Hemoglobin Concent 34.5 g/dL (32.0-36.0) Red Cell Distribution Width 15.1 % (11.5-14.5) Platelet Count 204 K/uL (150-450) Mean Platelet Volume 8.4 fL (7.2-11.1) Neutrophils (%) (Auto) 84.0 % (39.4-72.5) Lymphocytes (%) (Auto) 7.0 % (17.6-49.6) Monocytes (%) (Auto) 8.0 % (4.1-12.4) Eosinophils (%) (Auto) 0.8 % (0.4-6.7) Basophils (%) (Auto) 0.2 % (0.3-1.4) Nucleated RBC Relative Count (auto) 0.0 /100WBC Neutrophils # (Auto) 8.9 K/uL (2.0-7.4) Lymphocytes # (Auto) 0.7 K/uL (1.3-3.6) Monocytes # (Auto) 0.8 K/uL (0.3-1.0) Eosinophils # (Auto) 0.1 K/uL (0.0-0.5) Basophils # (Auto) 0.0 K/uL (0.0-0.1) Nucleated RBC Absolute Count (auto) 0.00 K/uL Glomerular Filtration Rate Calc > 60.0 Calcium Level 9.7 mg/dl (8.4-10.2) Total Bilirubin 1.1 mg/dl (0.2-1.3) Aspartate Amino Transf (AST/SGOT) 23 U/L (0-35) Alanine Aminotransferase (ALT/SGPT) 26 U/L (0-56) Alkaline Phosphatase 102 U/L (0-126) Total Protein 6.7 gm/dl (6.3-8.2) Albumin 3.9 g/dl (3.5-5.0) Muscle Strength and Tone: WNL Gait and Station: Steady S Medications Reviewed: Side Effects, Benefits of Medication, Risks Allergies Reviewed: Yes Mental Status Exam General Appearance: No Good Eye Contact, Cooperative, Polite, Unkept, No Psychomotor Agitation, No Psychomotor Retardation, Bizarre Mannerisms Speech: No Normal Volume (very quiet), Delayed Mood: Other (Mood states less apparent in patient presentation related to schizophrenia, patient states "okay") Affect: Calm, Flat, Withdrawn Thought Process: Goal Directed (in some ways), Other (Scarcely verbalized. Does not express rationale for hitting herself.) Thought Content: No Suicidal Ideation, No Homicidal Ideation, No Delusions, Auditory Halllucinations (likely present. ), Other (Patient responds in a psychotic fashion at times, yelling profanities when she perceives a threat. These are scenarios where there is no danger. ) Sensorium: Clear Cognition: Alert & Oriented-Person, Alert & Oriented-Place, Alert & Oriented- Time, No Ahlhv-Fialohrs-Vpdovnhhh (partially) Memory: Immediate, Recent, Remote Intelligence: Average (historically average) Insight Judgment: Poor (limited by chronic mental illness. ) Result Diagram: 02/15/1862102/15/186[address] [facility] Assessment and Plan Tdao-[id number] Encounter Date: February 15, 2018 Arvy-nx-Thof Encounter Time: 10:00 [facility] Plan: Necessary Precautions, Individual/Group Therapy, Admin/Titrate Meds, Educate Patient Tobacco Medications: Started Multpiple Antipsychotics Used: No Problems: (1) Schizophrenia Status: Chronic Problem Qualifiers (1) Schizophrenia: Schizophrenia type: paranoid schizophrenia Qualified Codes: F20.0 - Paranoid schizophrenia JUMANA KEARNEY MD February 15, 2018 10:04
[2018-02-15 10:10] VITALS: BP 106/70
--- NOTE | 2018-02-15 17:51 | EKG ---
[facility] PATIENT NAME: CAYETANO AZUL : [id number] MR: [id number] V: [id number] EXAM DATE: ORDERING PHYSICIAN: JUMANA KEARNEY TECHNOLOGIST: DEEPA Test Reason : TACHYCARDIA Blood Pressure : / mmHG Vent. Rate : 114 BPM Atrial Rate : 114 BPM P-R Int : 142 ms QRS Dur : 072 ms QT Int : 296 ms P-R-T Axes : 039 052 043 degrees QTc Int : 407 ms Sinus tachycardia Otherwise normal ECG When compared with ECG of 01-OCT-2017 14:36, No significant change was found Confirmed by MAX OQUENDO ([id number]) on 02/15/2018 6:21:12 PM Referred By: CAIO Confirmed By:MAX OQUENDO
[2018-02-15 19:55] VITALS: BP 102/48
[2018-02-15 23:00] VITALS: BP 125/63
[2018-02-16 06:16] VITALS: BP 108/58
[2018-02-16 07:07] LABS: PLATELET COUNT, AUTOMATED 157 K/uL (150-450)
[2018-02-16] MEDS: MULTIVITAMINS TAB PO SCH (08:08)
[2018-02-16] MEDS: AZITHROMYCIN 250 MG TAB PO SCH (08:08)
[2018-02-16] MEDS: ACETAMINOPHEN 325 MG TAB PO PRN ×2 (08:09→20:18)
[2018-02-16 11:08] VITALS: BP 88/46
[2018-02-16 12:18] VITALS: BP 102/52
--- NOTE | 2018-02-16 13:34 | BHS Progress Note ---
S - Subjective Progress Notes Subjective "I'm doing fine. I don't know why I'm here. The police stopped me." Mildly elevated temp, requiring oxygen due to low saturations, VS monitored closely Denies auditory/visual hallucinations Denies depression or anxiety Mood dysthymic, answers questions with long pauses prior to responding, guarded w/responses Reports she was drinking alcohol prior to admission, "I prefer Vodka and Tonics " Treatment team w/guardian 02/18/18 Suicidal Ideation: None Homicidal Ideation: None [facility] - Objective Physical Exam Vital Signs Vital Signs Date Time Temp Pulse Resp B/P (MAP) Pulse Ox O2 Delivery O2 Flow Rate FiO2 02/16/18 12:18 99.3 87 16 102/52 (69) 97 Venturi Mask 02/16/18 06:16 4.0 Muscle Strength and Tone: WNL Gait and Station: Steady [facility] Medications Reviewed: Side Effects, Benefits of Medication, Risks Allergies Reviewed: Yes Mental Status Exam General Appearance: Cooperative, Polite, Unkept, Psychomotor Retardation, No Bizarre Mannerisms Speech: Delayed Mood: Dysthmic/Depressed, No Other Affect: Calm, Flat, Withdrawn Thought Process: Goal Directed, No Other Thought Content: Auditory Halllucinations (denies), Other Sensorium: Clear Cognition: Alert & Oriented-Person, Alert & Oriented-Place, Alert & Oriented- Time Memory: Immediate, Recent, Remote Intelligence: Average Insight Judgment: Poor Result Diagram: 02/16/18 0648 02/15/18 0622 Lab Vital Signs Date Time Temp Pulse Resp B/P (MAP) Pulse Ox O2 Delivery O2 Flow Rate FiO2 02/16/18 12:18 99.3 87 16 102/52 (69) 97 Venturi Mask 02/16/18 06:16 4.0 Microbiology Allergies Coded Allergies citric acid (Unverified Allergy, Intermediate, HIVES, 09/26/17) Sulfa (Sulfonamide Antibiotics) (Verified Allergy, Unknown, 09/26/17) codeine (Unverified Allergy, Unknown, GI DISTRESS, 09/26/17) fluoxetine HCl (Verified Allergy, Unknown, 09/26/17) Additional Findings/Notes: Laboratory Tests Test 02/16/18 06:48 White Blood Count 7.5 k/uL Red Blood Count 4.80 M/uL Hemoglobin 14.3 g/dL Hematocrit 42.1 % Mean Corpuscular Volume 87.8 fL Mean Corpuscular Hemoglobin 29.8 pg Mean Corpuscular Hemoglobin Concent 33.9 g/dL Red Cell Distribution Width 15.0 % Platelet Count 157 K/uL Mean Platelet Volume 8.1 fL Neutrophils (%) (Auto) 72.0 % Lymphocytes (%) (Auto) 16.8 % Monocytes (%) (Auto) 9.0 % Eosinophils (%) (Auto) 2.2 % Basophils (%) (Auto) 0.0 % Nucleated RBC Relative Count (auto) 0.0 /100WBC Neutrophils # (Auto) 5.4 K/uL Lymphocytes # (Auto) 1.3 K/uL Monocytes # (Auto) 0.7 K/uL Eosinophils # (Auto) 0.2 K/uL Basophils # (Auto) 0.0 K/uL Nucleated RBC Absolute Count (auto) 0.00 K/uL Current Medications Medications (Trade) Dose Ordered Sig/Marquita Route PRN Reason Start Time Stop Time Status Last Admin Dose Admin Al Hydrox/Mg Hydrox/Simethicone (Maalox(*) 30 ml Udcup (Or Equiv)) 30 ml Q4H PRN PO DYSPEPSIA 02/11/18 19:35 03/13/18 19:34 Multivitamins (Thera-M Enhanced Tab (Or Equiv)) 1 each QDAY PO 02/12/18 09:00 03/14/18 08:59 02/16/18 08:08 Nicotine (Nicoderm Cq 7 Mg/24 Hr (Or Equiv)) 7 mg QDAY TD 02/12/18 09:00 02/12/18 14:56 DC 02/12/18 08:14 Risperidone (Risperdal Consta 50 Mg/2 ml Syr (Patient Own)) 50 mg ONCE ONCE IM 02/14/18 09:00 02/14/18 09:01 DC 02/13/18 12:15 Nicotine (Nicotrol Inhaler 10 Mg/Inh (Or Equiv)) 10 mg Q3H PRN INH NICOTINE REPLACEMENT 02/12/18 14:55 03/14/18 14:54 02/12/18 15:29 Miscellaneous Information (Nicotrol Cartridge) 1 each PRN PRN PO NICOTINE REPLACEMENT 02/12/18 14:55 03/14/18 14:54 02/12/18 15:30 Benzonatate (Tessalon Perles(*) 100 Mg Cap (Or Equiv)) 100 mg TID PRN PO COUGH 02/15/18 02:15 03/17/18 02:14 02/15/18 20:40 Acetaminophen (Tylenol(*)325 Mg Tab (Or Equiv)) 650 mg Q6H PRN PO FEVER/PAIN 02/15/18 06:50 03/17/18 06:49 02/16/18 08:09 Azithromycin (Zithromax(*) 250 Mg Tab (Or Equiv)) 500 mg ONCE ONCE PO 02/15/18 08:00 02/15/18 08:08 DC 02/15/18 08:12 Azithromycin (Zithromax(*) 250 Mg Tab (Or Equiv)) 250 mg QDAY PO 02/16/18 09:00 02/20/18 08:59 02/16/18 08:08 S Assessment and Plan [id number] Encounter Date: February 16, 2018 [id number] Encounter Time: 11:30 S Plan: Necessary Precautions, Individual/Group Therapy, Admin/Titrate Meds, Educate Patient Tobacco Medications: Started Multpiple Antipsychotics Used: No Problems: (1) Schizophrenia Status: Chronic Condition Continue current medication and treatment Maintain precautions Close monitoring of VS/saturations, continue oxygen Treatment team meeting w/brother 02/18/18, possible placement in long term being consideration Problem Qualifiers (1) Schizophrenia: Schizophrenia type: paranoid schizophrenia Qualified Codes: F20.0 - Paranoid schizophrenia GERARDO HUBER NP February 16, 2018 13:34
[2018-02-16 16:08] VITALS: BP 112/64
[2018-02-16] MEDS: NICOTINE CARTRIDGE 1 EA PO PRN (16:21)
[2018-02-16] MEDS: NICOTINE INH SYSTEM 10 MG/INH INH PRN ×2 (16:21→20:15)
[2018-02-16 20:05] VITALS: BP 126/90
[2018-02-16] MEDS: BENZONATATE 100 MG CAP PO PRN (20:17)
[2018-02-16] MEDS: IBUPROFEN 600 MG TAB PO PRN (21:55)
[2018-02-17 00:14] VITALS: BP 108/66
[2018-02-17 04:22] VITALS: BP 112/68
[2018-02-17 07:03] LABS: PLATELET COUNT, AUTOMATED 169 K/uL (150-450)
[2018-02-17] MEDS: AZITHROMYCIN 250 MG TAB PO SCH (08:53)
[2018-02-17] MEDS: MULTIVITAMINS TAB PO SCH (08:53)
--- NOTE | 2018-02-17 10:01 | BHS Progress Note ---
[facility] - Subjective Progress Notes Subjective "A police car stopped and he got out. He had me lean up against the back of the car until the ambulance came." Denies depression, anxiety or anger. Denies AVH Denies urge for harm to self or others. Suicidal Ideation: None Homicidal Ideation: None [facility] - Objective Physical Exam Muscle Strength and Tone: WNL Gait and Station: Steady [facility] Medications Reviewed: Side Effects, Benefits of Medication, Risks Allergies Reviewed: Yes Mental Status Exam General Appearance: Cooperative, Polite, Unkept, Psychomotor Retardation, No Bizarre Mannerisms Speech: Delayed Mood: Dysthmic/Depressed, No Other Affect: Calm, Flat, Withdrawn Thought Process: Goal Directed, No Other Thought Content: Auditory Halllucinations (denies), Other Sensorium: Clear Cognition: Alert & Oriented-Person, Alert & Oriented-Place, Alert & Oriented- Time Memory: Immediate, Recent, Remote Intelligence: Average Insight Judgment: Poor Result Diagram: 02/17/18 0654 02/17/18 0654 Lab Laboratory Tests Test 02/17/18 06:54 02/17/18 08:40 White Blood Count 5.8 k/uL Red Blood Count 4.44 M/uL Hemoglobin 13.4 g/dL Hematocrit 39.1 % Mean Corpuscular Volume 88.2 fL Mean Corpuscular Hemoglobin 30.2 pg Mean Corpuscular Hemoglobin Concent 34.3 g/dL Red Cell Distribution Width 14.8 % Platelet Count 169 K/uL Mean Platelet Volume 8.2 fL Neutrophils (%) (Auto) 64.3 % Lymphocytes (%) (Auto) 23.0 % Monocytes (%) (Auto) 6.7 % Eosinophils (%) (Auto) 4.4 % Basophils (%) (Auto) 1.6 % Nucleated RBC Relative Count (auto) 0.0 /100WBC Neutrophils # (Auto) 3.7 K/uL Lymphocytes # (Auto) 1.3 K/uL Monocytes # (Auto) 0.4 K/uL Eosinophils # (Auto) 0.3 K/uL Basophils # (Auto) 0.1 K/uL Nucleated RBC Absolute Count (auto) 0.00 K/uL Sodium Level 139 mmol/L Potassium Level 3.6 mmol/L Chloride Level 101 mmol/L Carbon Dioxide Level 28 mmol/L Blood Urea Nitrogen 7 mg/dl Creatinine 0.50 mg/dl Glomerular Filtration Rate Calc > 60.0 Random Glucose 86 mg/dl Calcium Level 9.1 mg/dl Total Bilirubin 0.5 mg/dl Aspartate Amino Transf (AST/SGOT) 31 U/L Alanine Aminotransferase (ALT/SGPT) 44 U/L Alkaline Phosphatase 81 U/L Total Protein 6.2 gm/dl Albumin 3.3 g/dl Urine Color Yellow Urine Clarity Clear Urine pH 6.0 pH Urine Specific [place] 1.014 Urine Protein Negative mg/dL Urine Glucose (UA) Negative mg/dL Urine Ketones Negative mg/dL Urine Blood Negative Urine Nitrite Negative Urine Bilirubin Negative Urine Urobilinogen Negative mg/dL Urine Leukocyte Esterase Negative Urine RBC 1 /HPF Urine WBC 2 /HPF Urine Squamous Epithelial Cells None /LPF Urine Bacteria Negative /HPF Urine Mucus Few /HPF Current Medications Medications (Trade) Dose Ordered Sig/Marquita Route PRN Reason Start Time Stop Time Status Last Admin Dose Admin Al Hydrox/Mg Hydrox/Simethicone (Maalox(*) 30 ml Udcup (Or Equiv)) 30 ml Q4H PRN PO DYSPEPSIA 02/11/18 19:35 03/13/18 19:34 Multivitamins (Thera-M Enhanced Tab (Or Equiv)) 1 each QDAY PO 02/12/18 09:00 03/14/18 08:59 02/17/18 08:53 Nicotine (Nicoderm Cq 7 Mg/24 Hr (Or Equiv)) 7 mg QDAY TD 02/12/18 09:00 02/12/18 14:56 DC 02/12/18 08:14 Risperidone (Risperdal Consta 50 Mg/2 ml Syr (Patient Own)) 50 mg ONCE ONCE IM 02/14/18 09:00 02/14/18 09:01 DC 02/13/18 12:15 Nicotine (Nicotrol Inhaler 10 Mg/Inh (Or Equiv)) 10 mg Q3H PRN INH NICOTINE REPLACEMENT 02/12/18 14:55 02/17/18 10:06 DC 02/16/18 20:15 Miscellaneous Information (Nicotrol Cartridge) 1 each PRN PRN PO NICOTINE REPLACEMENT 02/12/18 14:55 02/17/18 10:06 DC 02/16/18 16:21 Benzonatate (Tessalon Perles(*) 100 Mg Cap (Or Equiv)) 100 mg TID PRN PO COUGH 02/15/18 02:15 03/17/18 02:14 02/16/18 20:17 Acetaminophen (Tylenol(*)325 Mg Tab (Or Equiv)) 650 mg Q6H PRN PO FEVER/PAIN 02/15/18 06:50 03/17/18 06:49 02/16/18 20:18 Azithromycin (Zithromax(*) 250 Mg Tab (Or Equiv)) 500 mg ONCE ONCE PO 02/15/18 08:00 02/15/18 08:08 DC 02/15/18 08:12 Azithromycin (Zithromax(*) 250 Mg Tab (Or Equiv)) 250 mg QDAY PO 02/16/18 09:00 02/20/18 08:59 02/17/18 08:53 Ibuprofen (Motrin (*) 600 Mg Tab (Or Equiv)) 600 mg Q6H PRN PO PAIN 02/16/18 21:20 03/18/18 21:19 02/17/18 12:53 Nicotine Polacrilex (Nicorette 2 Mg Gum (Or Equiv)) 2 mg Q1-2H PRN PO NICOTINE REPLACEMENT 02/17/18 10:05 03/19/18 10:04 02/17/18 12:24 [facility] Assessment and Plan [id number] Encounter Date: February 17, 2018 [id number] Encounter Time: 09:58 [facility] Plan: Necessary Precautions, Individual/Group Therapy, Admin/Titrate Meds, Educate Patient Tobacco Medications: Started Multpiple Antipsychotics Used: No Problems: (1) Schizophrenia Status: Chronic Condition Met w/Dana Molina quantitative strategy analyst yesterday 02/16/18 Continue current medications and treatment Ongoing precautions Ongoing coordination of care w/guardian seeking appropriate discharge plan/ senior care if appropriate Problem Qualifiers (1) Schizophrenia: Schizophrenia type: paranoid schizophrenia Qualified Codes: F20.0 - Paranoid schizophrenia GERARDO HUBER NP February 17, 2018 10:01
[2018-02-17] MEDS: NICOTINE POLACRILEX 2 MG GUM PO PRN ×3 (10:52→20:00)
[2018-02-17 12:40] VITALS: BP 108/68
[2018-02-17] MEDS: IBUPROFEN 600 MG TAB PO PRN (12:53)
[2018-02-17] MEDS: ACETAMINOPHEN 325 MG TAB PO PRN (14:49)
[2018-02-17 17:35] VITALS: BP 100/62
[2018-02-17 21:15] VITALS: BP 121/78
[2018-02-17] MEDS: BENZONATATE 100 MG CAP PO PRN (21:16)
[2018-02-18 06:04] VITALS: BP 112/62
[2018-02-18 07:13] LABS: PLATELET COUNT, AUTOMATED 204 K/uL (150-450)
[2018-02-18] MEDS: AZITHROMYCIN 250 MG TAB PO SCH (08:21)
[2018-02-18] MEDS: MULTIVITAMINS TAB PO SCH (08:21)
[2018-02-18] MEDS: IBUPROFEN 600 MG TAB PO PRN (08:21)
[2018-02-18 09:07] VITALS: BP 118/74
--- NOTE | 2018-02-18 09:30 | BHS Progress Note ---
S - Subjective Progress Notes Subjective "I've taken Tramadol for a broken hip." Encourage shower, was refusing shower over weekend. Eating and drinking well, oxygen saturations maintaining above 90%, VSS Patient continues to interact well, and not demonstrating any self abusive behaviors. Underlying psychosis ongoing. Upper respiratory infection currently, see imaging, z-pac was started, Waived first hearing, awaiting second hearing to be put on the [facility] wait list, Guardian/brother present for treatment team, agrees with need for structured living Suicidal Ideation: None Homicidal Ideation: None S - Objective Physical Exam Vital Signs Vital Signs Date Time Temp Pulse Resp B/P (MAP) Pulse Ox O2 Delivery O2 Flow Rate FiO2 02/18/18 06:04 101.0 84 15 112/62 (79) 91 Nasal Cannula 3.0 Allergies Coded Allergies citric acid (Unverified Allergy, Intermediate, HIVES, 09/26/17) Sulfa (Sulfonamide Antibiotics) (Verified Allergy, Unknown, 09/26/17) codeine (Unverified Allergy, Unknown, GI DISTRESS, 09/26/17) fluoxetine HCl (Verified Allergy, Unknown, 09/26/17) Muscle Strength and Tone: WNL Gait and Station: Steady [facility] Medications Reviewed: Side Effects, Benefits of Medication, Risks Allergies Reviewed: Yes Mental Status Exam General Appearance: Cooperative, Polite, Unkept, Psychomotor Retardation, No Bizarre Mannerisms Speech: Delayed Mood: Dysthmic/Depressed, No Other Affect: Calm, Flat, Withdrawn Thought Process: Goal Directed, No Other Thought Content: Auditory Halllucinations (denies), Other Sensorium: Clear Cognition: Alert & Oriented-Person, Alert & Oriented-Place, Alert & Oriented- Time Memory: Immediate, Recent, Remote Intelligence: Average Insight Judgment: Poor Result Diagram: 02/18/18 0640 02/18/18 0640 Lab Laboratory Tests Test 02/18/18 06:40 White Blood Count 7.3 k/uL Red Blood Count 4.07 M/uL Hemoglobin 12.3 g/dL Hematocrit 35.7 % Mean Corpuscular Volume 87.8 fL Mean Corpuscular Hemoglobin 30.2 pg Mean Corpuscular Hemoglobin Concent 34.4 g/dL Red Cell Distribution Width 14.6 % Platelet Count 204 K/uL Mean Platelet Volume 8.2 fL Neutrophils (%) (Auto) 54.5 % Lymphocytes (%) (Auto) 28.8 % Monocytes (%) (Auto) 9.0 % Eosinophils (%) (Auto) 7.5 % Basophils (%) (Auto) 0.2 % Nucleated RBC Relative Count (auto) 0.0 /100WBC Neutrophils # (Auto) 4.0 K/uL Lymphocytes # (Auto) 2.1 K/uL Monocytes # (Auto) 0.7 K/uL Eosinophils # (Auto) 0.5 K/uL Basophils # (Auto) 0.0 K/uL Nucleated RBC Absolute Count (auto) 0.00 K/uL Sodium Level 141 mmol/L Potassium Level 3.6 mmol/L Chloride Level 106 mmol/L Carbon Dioxide Level 24 mmol/L Blood Urea Nitrogen 9 mg/dl Creatinine 0.50 mg/dl Glomerular Filtration Rate Calc > 60.0 Random Glucose 84 mg/dl Calcium Level 8.9 mg/dl Total Bilirubin 0.3 mg/dl Aspartate Amino Transf (AST/SGOT) 17 U/L Alanine Aminotransferase (ALT/SGPT) 40 U/L Alkaline Phosphatase 80 U/L Total Protein 5.7 gm/dl Albumin 3.0 g/dl Current Medications Medications (Trade) Dose Ordered Sig/Marquita Route PRN Reason Start Time Stop Time Status Last Admin Dose Admin Al Hydrox/Mg Hydrox/Simethicone (Maalox(*) 30 ml Udcup (Or Equiv)) 30 ml Q4H PRN PO DYSPEPSIA 02/11/18 19:35 03/13/18 19:34 Multivitamins (Thera-M Enhanced Tab (Or Equiv)) 1 each QDAY PO 02/12/18 09:00 03/14/18 08:59 02/18/18 08:21 Nicotine (Nicoderm Cq 7 Mg/24 Hr (Or Equiv)) 7 mg QDAY TD 02/12/18 09:00 02/12/18 14:56 DC 02/12/18 08:14 Risperidone (Risperdal Consta 50 Mg/2 ml Syr (Patient Own)) 50 mg ONCE ONCE IM 02/14/18 09:00 02/14/18 09:01 DC 02/13/18 12:15 Nicotine (Nicotrol Inhaler 10 Mg/Inh (Or Equiv)) 10 mg Q3H PRN INH NICOTINE REPLACEMENT 02/12/18 14:55 02/17/18 10:06 DC 02/16/18 20:15 Miscellaneous Information (Nicotrol Cartridge) 1 each PRN PRN PO NICOTINE REPLACEMENT 02/12/18 14:55 02/17/18 10:06 DC 02/16/18 16:21 Benzonatate (Tessalon Perles(*) 100 Mg Cap (Or Equiv)) 100 mg TID PRN PO COUGH 02/15/18 02:15 03/17/18 02:14 02/17/18 21:16 Acetaminophen (Tylenol(*)325 Mg Tab (Or Equiv)) 650 mg Q6H PRN PO FEVER/PAIN 02/15/18 06:50 03/17/18 06:49 02/17/18 14:49 Azithromycin (Zithromax(*) 250 Mg Tab (Or Equiv)) 500 mg ONCE ONCE PO 02/15/18 08:00 02/15/18 08:08 DC 02/15/18 08:12 Azithromycin (Zithromax(*) 250 Mg Tab (Or Equiv)) 250 mg QDAY PO 02/16/18 09:00 02/20/18 08:59 02/18/18 08:21 Ibuprofen (Motrin (*) 600 Mg Tab (Or Equiv)) 600 mg Q6H PRN PO PAIN 02/16/18 21:20 03/18/18 21:19 02/18/18 08:21 Nicotine Polacrilex (Nicorette 2 Mg Gum (Or Equiv)) 2 mg Q1-2H PRN PO NICOTINE REPLACEMENT 02/17/18 10:05 03/19/18 10:04 02/17/18 20:00 [facility] Assessment and Plan Wenr-[id number]-[id number] Encounter Date: February 18, 2018 [id number] Encounter Time: 09:28 [facility] Plan: Necessary Precautions, Individual/Group Therapy, Admin/Titrate Meds, Educate Patient Tobacco Medications: Started Multpiple Antipsychotics Used: No Problems: (1) Schizophrenia Status: Chronic Condition Treatment team with brother today 02/18/18 Maintain precautions Awaiting second hearing Continue medication and treatment Problem Qualifiers (1) Schizophrenia: Schizophrenia type: paranoid schizophrenia Qualified Codes: F20.0 - Paranoid schizophrenia GERARDO HUBER NP February 18, 2018 09:30
[2018-02-18] MEDS: NICOTINE POLACRILEX 2 MG GUM PO PRN ×3 (10:07→13:12)
[2018-02-18 13:07] VITALS: BP 123/72
--- NOTE | 2018-02-18 16:04 | BHS - Psychiatric Evaluation ---
Title 25 Evaluation Hearing Report: 110 Date of Report: February 18, 2018 Examiner: Heather Walton M.S., L.P.C. and Houston Saldana M.D. Patient Detained By: Physician, Therapist (Chioma Munoz M.S, L.P.CMandy) 24hr Mental Health Eval By: Heather Walton M.S., L.P.C Date Patient Detained: February 13, 2018 Time Patient Detained: 11:55 Date Senior Living Expires: Feb 28, 2018 Time Senior Living Expires: 11:55 Legal Status: Police Hold: No Legal Status: Relationship: Single Legal Status: Residence: [facility] Resident, State Resident Referral Source: Professional: Lead Clinician at [facility] Assessment Data Provided By: Therapist, Family Member(s), Other Source ( Electronic record, and [facility] staff) Chief Complaint: Patient has become destabilized again, and her guardian believes her increasing dangerousness, especially hitting herself and the psychosis related to hitting herself indicate her current residence in supported housing is insufficient for her needs and needs to be a higher level to prevent a dangerous outcome. HPI/ROS: his is a well-known 52-year-old female who is well known in the [facility]. Patient has a history of ambulating around [place] and is well known to [place] a whole. Patient was last on the Behavioral Health Unit in September of 2017. At that time she was discharged to [facility] to await placement in [facility]. Apparently patient did quite well at [facility] and interacted well in a group environment prior to being discharged to [facility] housing here in [place]. Since that time it is believed patient has been following up with medication treatments including Risperdal Consta injections which are given every two weeks. Patient notably had an increase from 37.5 to 50 mg dosing on last injection, and patient does continue to remain available for said injection at prescribed time at [facility]. Patient has resumed ambulating around [place], and notably in the last two to three weeks patient has reportedly taken up smoking again, and notably patient was mildly intoxicated at the time of admission. Patient previously had quit smoking and is not known to be a drinker. During initial interview patient was cooperative and very quiet. Patient not answering questions related to bruising around her face, which is believed to have been caused by herself punching herself. This resulted in patient having some blood about her face. Police were called to do a welfare check and eventually patient was witnessed hitting herself in her face by police prior to being brought into the emergency room. Patient was cleared in the emergency room for any medical concerns including self-abusive behavior, and patient was brought to the Behavioral Health Unit without incident. Patient not communicating as to self-harming behaviors or any particular concerns that bother her. Patient states she is, "I'm doing all right." Patient again has a long-standing history of schizophrenia. Diagnosis: Schizophrenia. Alcohol intoxication. Patient isolated and limited due to chronic persisting mental illness. Risk Formulation: Risk for patient's safety is rated as high. She is easily victimized when she is unstable. Patient has had multiple psychiatric hospitalizations at [facility]. Most recently she has been exhibiting self-harming behaviors by drinking alcohol, hitting herself, and walking around town, often in or at the edge of traffic in this decompensated condition. She is a community member who has notoriety for walking in traffic and or yelling in businesses at perceived threats which are part of her psychosis. Her guardian does not live in town, and although he visits her monthly, patient's well-being cannot be observed day- to-day by him at this time. Patient's guardian feels it is time for patient to receive more support, as she is doing poorly with current level of supported housing and case management at [facility]. [facility] staff is also deeply concerned given her display of these increasingly dangerous behaviors. This level of care is no longer sufficient to maintain her safety even though it was appropriate for her for a long time. Further decompensation could easily result in a fatal accident for patient. Recommendations of [facility] Team: The team recommends the patient, Kay Liu, be committed to the [facility] for further evaluation and stabilization. [facility] will provide patient with the appropriate level of care and also allow her more freedom to walk around than she currently has at [facility]/ [facility]. If placement becomes available at a less restrictive facility ([facility]vision [place] [facility]) prior to admission to the [facility], this would be more therapeutic for the patient. Should this happen, we ask that a directed outpatient commitment or convalescent leave, be coordinated in conjunction with the [place] [employer] [facility]. At this time no high supervision group homes have availability, and the although an application has been submitted for the patient at 3 group homes, each facility has no availability within at the nest 2-3 months. Reliability of Pt-Evidenced By Patient wants to return to her apartment at [facility], and has difficulty understanding this became unsuitable for her due to very dangerous behaviors. Her brother, as her guardian, is very concerned for her safety and believes her care needs to be much greater than it has been. Reliability of Collateral Info Patient's brother is very astute, and able to understand patient's increasing needs. Current Dangerous Risk Assess: Self-Injurious Behaviors (Hitting self, walking in traffic, drinking alcohol to intoxication.) Current Risk Summary: The patient "evidences behavior manifested by recent acts or omissions that, due to mental illness, the patient is unable to satisfy basic needs for nourishment, essential medical care, penitentiary, or safety so that a substantial probability exists that , serious physical injury, serious physical debilitation, serious mental debilitation, destabilization from lack of or refusal to take prescribed psychotropic medications for a diagnosed condition or serious physical disease will imminently ensue, unless the individual receives prompt and adequate treatment for this mental illness" as evidenced by : Risk for patient's safety is rated as high. She is easily victimized when she is unstable. Patient has had multiple psychiatric hospitalizations at [facility]. Most recently she has been exhibiting self-harming behaviors by drinking alcohol, hitting herself, and walking around town, often near the edge of traffic in this decompensated condition. She is a community member who has notoriety for walking in traffic and or yelling in businesses at perceived threats which are part of her psychosis. Her guardian does not live in town, and although he visits her monthly, patient's well-being cannot be observed day- to-day by him at this time. Patient's guardian feels it is time for patient to receive more support, as she is doing poorly with current level of supported housing and case management at [facility]. [facility] staff is also deeply concerned given her display of these increasingly dangerous behaviors. This level of care is no longer sufficient to maintain her safety even though it was appropriate for her for a long time. Further decompensation could easily result in a fatal accident for patient. Past Dangerous Risk Assess: Self-Injurious Behaviors (Hitting self, walking in traffic, drinking alcohol to intoxication.) BHS - Exam Physical Exam Vital Signs Vital Signs 02/18/18 02/18/18 06:04 13:07 Temp 99.3 Pulse 105 Resp 15 B/P (MAP) 123/72 (89) Pulse Ox 95 O2 Delivery Room Air O2 Flow Rate 3.0 Mental Status Exam General Appearance: Cooperative, Polite, Unkept, Psychomotor Retardation, No Bizarre Mannerisms Speech: Delayed Mood: Dysthmic/Depressed, No Other Affect: Calm, Flat, Withdrawn Thought Process: Goal Directed, No Other Thought Content: Auditory Halllucinations (denies), Other Sensorium: Clear Cognition: Alert & Oriented-Person, Alert & Oriented-Place, Alert & Oriented- Time Memory: Immediate, Recent, Remote Intelligence: Average Insight Judgment: Poor Sleep: Normal Care & Behavior on Unit Treatment Team Participation: Patient participates minimally in therapy on the unit. She walks and moves incessantly in a manner that does not appear to be goal-directed. She does not refuse any services, but is often unable to answer questions with content that demonstrates an adult level of understanding. Pt. Taking Meds Voluntarily: Yes Medication Aherence: Patient has good adherence to medication when she is in a very structured setting. Changes Since 109 Hearing: Patient had been feeling quite under the weather and needed several days when she was mostly in bed to recover from a virus. Title 25 History Psychiatric History: Patient again has a long-standing history of schizophrenia. Patient is believed to have suffered her first psychotic break around the age of 25, had been hospitalized at that time. She has been in the [facility] system. Patient has a guardian which is her brother. Patient's diagnosis is best described as schizophrenia at this time. Patient has recently taken up smoking and drinking alcohol again. Family Psychiatric Hx: Family genetic history of psychiatric illness is significant for alcoholism on the father's side, but not in the father himself. Patient does have one brother who is not known to suffer from any significant psychiatric illness, and extensive mood disorders in multiple suicides on the mother's side of the family. Depression was noted in her mother and there were completed suicides on mother's side of family. Father has been reported to have a drinking problem in the past. Social History: Patient was born in [place], raised all over. Her father was a traveling natural resources professor when she was young. Parents were at the time of her . Her mother is . It is believed her father is in a retirement at this time, but it is unknown. Patient has one brother approximately four years older who is her current guardian. Patient was never was able to obtain gainful employment. She has never , has had no children, not believed to have a significant other. Old records reports patient stating that she was happy prior to age 13. Patient graduated from high school, and went to the [employer], but didn't continue or complete first semester. Patient has been in Behavioral Health six times. [facility]- two times, once for several years. Patient was ordered after being found partially dressed in a snowbank. Has a history of elopement from [facility]. Has had residential treatment in [facility] in early 1989. Has been at [facility]'s Crisis bed- [facility], and reportedly liked it. Currently patient is unemployed and living off of a trust fund. She is a client at [facility] and is living in the apartments. The plan is to look into [place] settings or the [facility]. Group homes around the [facility] indicate they may not have availability for 2-3 months. Previous Detentions: Patient has been detained previously. Prior Hospitalizations: Although patient has been detained six times at [facility] previously, she has had far more numerous law enforcement/disturbing the peace contacts. Drug & Alcohol Use: Age 16 patient reportedly drank alcohol. She was incarcerated once for stealing cigarettes, The financial support from her trust fund is adequate to support all of her purchases, and likely the theft was related to her mental illness not an inability to pay for the cigarettes. Current Alcohol Intoxication: On admission, patient did have a ASHLEY demonstrating intoxication, slightly below 1. Current Living Situation: Patient lives in [facility] apartments and is assisted with case management and psychiatric care. Legal History: Patient is not believed to have any extensive legal history with the exception of multiple contacts with police due to concerned citizens calling in welfare checks after patient was found walking in town over the years in high traffic areas. She has had some previously negative interactions with various businesses as well secondary to schizophrenic condition. Patient Strengths: Patient enjoys walking and is resourceful in getting to fast food restaurants for meals. Current Medical Data: Patient in the past has had complaints of pelvic pain. This seems to be resolved now, and patient seems to be ambulating well and not favoring either side, which has been notable in the past. Patient denies any medical complaints. Patient has been examined in the emergency room for self- inflected superficial wounds to the head and scalp. Relevant Medications: Risperdal -Prescribed antipsychotic medication HEATHER WALTON LPC February 18, 2018 16:04
[2018-02-19 04:27] VITALS: BP 114/66
[2018-02-19 07:48] VITALS: BP 107/66
[2018-02-19] MEDS: MULTIVITAMINS TAB PO SCH (08:23)
[2018-02-19] MEDS: AZITHROMYCIN 250 MG TAB PO SCH (08:23)
--- NOTE | 2018-02-19 10:10 | BHS Progress Note ---
BHS - Subjective Progress Notes Subjective Patient continues to recover from what appears to be an upper respiratory infection. O2 sats improving, and will reduce [place] oxygen today. Will continue same medications. Patient remains very pleasant and cooperative on the unit, and energy levels are returning to normal, with patient cooperatively going for walk with Agrivida thia AM. Patient herself denies any concerns, and no self abusive behaviors have been noted on the unit. Suicidal Ideation: None Homicidal Ideation: None S - Objective Physical Exam Vital Signs Vital Signs Date Time Temp Pulse Resp B/P (MAP) Pulse Ox O2 Delivery O2 Flow Rate FiO2 02/19/18 07:48 98.8 102 107/66 (80) 88 Room Air 02/19/18 04:27 15 2.0 Hematology Test 02/13/18 11:16 02/17/18 08:40 02/18/18 06:40 Tuberculin Skin Test 0 mm Urine Color Yellow Urine Clarity Clear Urine pH 6.0 pH (4.8-9.5) Urine Specific Fifty Six 1.014 Urine Protein Negative mg/dL (NEGATIVE) Urine Glucose (UA) Negative mg/dL (NEGATIVE) Urine Ketones Negative mg/dL (NEGATIVE) Urine Blood Negative (NEGATIVE) Urine Nitrite Negative (NEGATIVE) Urine Bilirubin Negative (NEGATIVE) Urine Urobilinogen Negative mg/dL (0.2-1.9) Urine Leukocyte Esterase Negative (NEGATIVE) Urine RBC 1 /HPF (0-2/HPF) Urine WBC 2 /HPF (0-5/HPF) Urine Squamous Epithelial Cells None /LPF (</=FEW) Urine Bacteria Negative /HPF (NONE-FEW) Urine Mucus Few /HPF (NONE-FEW) Red Blood Count 4.07 M/uL (4.17-5.56) Mean Corpuscular Volume 87.8 fL (80.0-96.0) Mean Corpuscular Hemoglobin 30.2 pg (26.0-33.0) Mean Corpuscular Hemoglobin Concent 34.4 g/dL (32.0-36.0) Red Cell Distribution Width 14.6 % (11.5-14.5) Mean Platelet Volume 8.2 fL (7.2-11.1) Neutrophils (%) (Auto) 54.5 % (39.4-72.5) Lymphocytes (%) (Auto) 28.8 % (17.6-49.6) Monocytes (%) (Auto) 9.0 % (4.1-12.4) Eosinophils (%) (Auto) 7.5 % (0.4-6.7) Basophils (%) (Auto) 0.2 % (0.3-1.4) Nucleated RBC Relative Count (auto) 0.0 /100WBC Neutrophils # (Auto) 4.0 K/uL (2.0-7.4) Lymphocytes # (Auto) 2.1 K/uL (1.3-3.6) Monocytes # (Auto) 0.7 K/uL (0.3-1.0) Eosinophils # (Auto) 0.5 K/uL (0.0-0.5) Basophils # (Auto) 0.0 K/uL (0.0-0.1) Nucleated RBC Absolute Count (auto) 0.00 K/uL Sodium Level 141 mmol/L (137-145) Potassium Level 3.6 mmol/L (3.5-5.0) Chloride Level 106 mmol/L (98-107) Carbon Dioxide Level 24 mmol/L (22-31) Blood Urea Nitrogen 9 mg/dl (7-18) Creatinine 0.50 mg/dl (0.52-1.04) Glomerular Filtration Rate Calc > 60.0 Random Glucose 84 mg/dl (75-110) Calcium Level 8.9 mg/dl (8.4-10.2) Total Bilirubin 0.3 mg/dl (0.2-1.3) Aspartate Amino Transf (AST/SGOT) 17 U/L (0-35) Alanine Aminotransferase (ALT/SGPT) 40 U/L (0-56) Alkaline Phosphatase 80 U/L (0-126) Total Protein 5.7 gm/dl (6.3-8.2) Albumin 3.0 g/dl (3.5-5.0) Chemistry Test 02/13/18 11:16 02/17/18 08:40 02/18/18 06:40 Tuberculin Skin Test 0 mm Urine Color Yellow Urine Clarity Clear Urine pH 6.0 pH (4.8-9.5) Urine Specific Fifty Six 1.014 Urine Protein Negative mg/dL (NEGATIVE) Urine Glucose (UA) Negative mg/dL (NEGATIVE) Urine Ketones Negative mg/dL (NEGATIVE) Urine Blood Negative (NEGATIVE) Urine Nitrite Negative (NEGATIVE) Urine Bilirubin Negative (NEGATIVE) Urine Urobilinogen Negative mg/dL (0.2-1.9) Urine Leukocyte Esterase Negative (NEGATIVE) Urine RBC 1 /HPF (0-2/HPF) Urine WBC 2 /HPF (0-5/HPF) Urine Squamous Epithelial Cells None /LPF (</=FEW) Urine Bacteria Negative /HPF (NONE-FEW) Urine Mucus Few /HPF (NONE-FEW) White Blood Count 7.3 k/uL (4.5-11.0) Red Blood Count 4.07 M/uL (4.17-5.56) Hemoglobin 12.3 g/dL (12.0-16.0) Hematocrit 35.7 % (34.0-47.0) Mean Corpuscular Volume 87.8 fL (80.0-96.0) Mean Corpuscular Hemoglobin 30.2 pg (26.0-33.0) Mean Corpuscular Hemoglobin Concent 34.4 g/dL (32.0-36.0) Red Cell Distribution Width 14.6 % (11.5-14.5) Platelet Count 204 K/uL (150-450) Mean Platelet Volume 8.2 fL (7.2-11.1) Neutrophils (%) (Auto) 54.5 % (39.4-72.5) Lymphocytes (%) (Auto) 28.8 % (17.6-49.6) Monocytes (%) (Auto) 9.0 % (4.1-12.4) Eosinophils (%) (Auto) 7.5 % (0.4-6.7) Basophils (%) (Auto) 0.2 % (0.3-1.4) Nucleated RBC Relative Count (auto) 0.0 /100WBC Neutrophils # (Auto) 4.0 K/uL (2.0-7.4) Lymphocytes # (Auto) 2.1 K/uL (1.3-3.6) Monocytes # (Auto) 0.7 K/uL (0.3-1.0) Eosinophils # (Auto) 0.5 K/uL (0.0-0.5) Basophils # (Auto) 0.0 K/uL (0.0-0.1) Nucleated RBC Absolute Count (auto) 0.00 K/uL Glomerular Filtration Rate Calc > 60.0 Calcium Level 8.9 mg/dl (8.4-10.2) Total Bilirubin 0.3 mg/dl (0.2-1.3) Aspartate Amino Transf (AST/SGOT) 17 U/L (0-35) Alanine Aminotransferase (ALT/SGPT) 40 U/L (0-56) Alkaline Phosphatase 80 U/L (0-126) Total Protein 5.7 gm/dl (6.3-8.2) Albumin 3.0 g/dl (3.5-5.0) Urinalysis Test 02/17/18 08:40 Urine Color Yellow Urine Clarity Clear Urine pH 6.0 pH (4.8-9.5) Urine Specific Fifty Six 1.014 Urine Protein Negative mg/dL (NEGATIVE) Urine Glucose (UA) Negative mg/dL (NEGATIVE) Urine Ketones Negative mg/dL (NEGATIVE) Urine Blood Negative (NEGATIVE) Urine Nitrite Negative (NEGATIVE) Urine Bilirubin Negative (NEGATIVE) Urine Urobilinogen Negative mg/dL (0.2-1.9) Urine Leukocyte Esterase Negative (NEGATIVE) Urine RBC 1 /HPF (0-2/HPF) Urine WBC 2 /HPF (0-5/HPF) Urine Squamous Epithelial Cells None /LPF (</=FEW) Urine Bacteria Negative /HPF (NONE-FEW) Urine Mucus Few /HPF (NONE-FEW) Muscle Strength and Tone: WNL Gait and Station: Steady S Medications Reviewed: Side Effects, Benefits of Medication, Risks Allergies Reviewed: Yes Mental Status Exam General Appearance: No Good Eye Contact, Cooperative, Polite, Good Interaction , No Unkept, No Tearful, No Psychomotor Agitation, No Psychomotor Retardation, Bizarre Mannerisms Speech: Clear, No Normal Volume (very quiet), Delayed Mood: Other (Mood states less apparent in patient presentation related to schizophrenia, patient states "okay") Affect: Calm, Flat, Withdrawn Thought Process: Goal Directed (in some ways), Other (Scarcely verbalized. Does not express rationale for hitting herself.) Thought Content: No Suicidal Ideation, No Homicidal Ideation, No Delusions, Auditory Halllucinations (likely present. ), Other Sensorium: Clear Cognition: Alert & Oriented-Person, Alert & Oriented-Place, Alert & Oriented- Time, No Qnnnv-Odyamzam-Zjtcwvbfl (partially) Memory: Immediate, Recent, Remote Intelligence: Average (historically average) Insight Judgment: Poor (limited by chronic mental illness. ) Result Diagram: 02/18/18 0640 02/18/1840 [facility] Assessment and Plan Xpxi-[id number] Encounter Date: February 19, 2018 Owcc-ts-Qjet Encounter Time: 09:00 [facility] Plan: Necessary Precautions, Individual/Group Therapy, Admin/Titrate Meds, Educate Patient Tobacco Medications: Started Multpiple Antipsychotics Used: No Problems: (1) Schizophrenia Status: Chronic Condition 1. Attempt to wean off [place] O2 2. continue treatment. 3. arrange next hearing for commitment to [facility]. Problem Qualifiers (1) Schizophrenia: Schizophrenia type: paranoid schizophrenia Qualified Codes: F20.0 - Paranoid schizophrenia JUMANA KEARNEY MD February 19, 2018 10:10
[2018-02-19 12:00] VITALS: BP 108/78
[2018-02-19] MEDS: NICOTINE POLACRILEX 2 MG GUM PO PRN (19:04)
[2018-02-20 05:23] VITALS: BP 106/69
[2018-02-20] MEDS: MULTIVITAMINS TAB PO SCH (08:13)
[2018-02-20] MEDS: DOCUSATE SODIUM 100 MG CAP PO SCH (09:31)
--- NOTE | 2018-02-20 10:14 | BHS Progress Note ---
[facility] - Subjective Progress Notes Subjective Patient continues to be very polite and cooperative with staff and others on the unit. Patient eating well, from non-sealed containers, and showing an increase in weight. Upper respiratory infection appears resolved. Patient continues to demonstrate poverty of speech, seemingly only interested in inquiring wether she could smoke cigarettes at the [facility]. Patient demonstrating no verbal outbursts, or self abusive behaviors on the unit. Patient not seen checking doors, and able to go for accompanied walks and returns to the unit without hesitation. No dyskinetic movements noted, no cogwheeeling of wrist, Patient exhibits movement of feet, but able to stop at will. Patient denies any other concerns. Suicidal Ideation: None Homicidal Ideation: None [facility] - Objective Physical Exam Vital Signs Vital Signs Date Time Temp Pulse Resp B/P (MAP) Pulse Ox O2 Delivery O2 Flow Rate FiO2 02/20/18 05:23 98.6 72 106/69 (81) 97 Room Air 02/19/18 12:00 18 02/19/18 04:27 2.0 Muscle Strength and Tone: WNL Gait and Station: Steady [facility] Medications Reviewed: Side Effects, Benefits of Medication, Risks Allergies Reviewed: Yes Mental Status Exam General Appearance: No Good Eye Contact, Cooperative, Polite, Good Interaction , No Unkept, No Tearful, No Psychomotor Agitation, No Psychomotor Retardation, Bizarre Mannerisms Speech: Clear, No Normal Volume (very quiet), Delayed Mood: Other (Mood states less apparent in patient presentation related to schizophrenia, patient states "okay") Affect: Calm, Flat, Withdrawn Thought Process: Goal Directed (in some ways), Other (Scarcely verbalized. Does not express rationale for hitting herself.) Thought Content: No Suicidal Ideation, No Homicidal Ideation, No Delusions, Auditory Halllucinations (likely present. ), Other Sensorium: Clear Cognition: Alert & Oriented-Person, Alert & Oriented-Place, Alert & Oriented- Time, No Zltsl-Lbclomcx-Oifdrwgel (partially) Memory: Immediate, Recent, Remote Intelligence: Average (historically average) Insight Judgment: Poor (limited by chronic mental illness. ) Result Diagram: 02/18/18 0640 02/18/18 0640 [facility] Assessment and Plan Yorp-ds-Pjzu Encounter Date: February 20, 2018 Vmor-zy-[id number] Encounter Time: 09:00 [facility] Plan: Necessary Precautions, Individual/Group Therapy, Admin/Titrate Meds, Educate Patient Tobacco Medications: Started Multpiple Antipsychotics Used: No Problems: (1) Schizophrenia Status: Chronic Condition 1. continue current treatment. 2. start colace. 3. await hearing and placement. Problem Qualifiers (1) Schizophrenia: Schizophrenia type: paranoid schizophrenia Qualified Codes: F20.0 - Paranoid schizophrenia JUMANA KEARNEY MD February 20, 2018 10:13
[2018-02-20 10:47] VITALS: BP 108/62
[2018-02-20 18:01] VITALS: BP 130/85
[2018-02-21 06:22] VITALS: BP 116/75
[2018-02-21] MEDS: MULTIVITAMINS TAB PO SCH (08:19)
[2018-02-21] MEDS: DOCUSATE SODIUM 100 MG CAP PO SCH ×2 (08:19→21:29)
[2018-02-21 08:27] VITALS: BP 110/84
--- NOTE | 2018-02-21 10:43 | BHS Progress Note ---
[facility] - Subjective Progress Notes Subjective Patient continues to do well, able to go for escorted walk again today, with no self harm behaviors. Patient remains overall quiet, but attending to ADL's well. Will await hearing now scheduled for next week. No other concerns. Suicidal Ideation: None Homicidal Ideation: None [facility] - Objective Physical Exam Vital Signs Vital Signs Date Time Temp Pulse Resp B/P (MAP) Pulse Ox O2 Delivery O2 Flow Rate FiO2 02/21/18 08:27 98.4 122 110/84 (93) 93 Room Air 02/21/18 06:22 15 02/19/18 04:27 2.0 Muscle Strength and Tone: WNL Gait and Station: Steady [facility] Medications Reviewed: Side Effects, Benefits of Medication, Risks Allergies Reviewed: Yes Mental Status Exam General Appearance: No Good Eye Contact, Cooperative, Polite, Good Interaction , No Unkept, No Tearful, No Psychomotor Agitation, No Psychomotor Retardation, Bizarre Mannerisms Speech: Clear, No Normal Volume (very quiet), Delayed Mood: Other (Mood states less apparent in patient presentation related to schizophrenia, patient states "okay") Affect: Calm, Flat, Withdrawn Thought Process: Goal Directed (in some ways), Other (Scarcely verbalized. Does not express rationale for hitting herself.) Thought Content: No Suicidal Ideation, No Homicidal Ideation, No Delusions, Auditory Halllucinations (likely present. ), Other Sensorium: Clear Cognition: Alert & Oriented-Person, Alert & Oriented-Place, Alert & Oriented- Time, No Bngqp-Rjausemv-Xzujoureq (partially) Memory: Immediate, Recent, Remote Intelligence: Average (historically average) Insight Judgment: Poor (limited by chronic mental illness. ) Result Diagram: 02/18/1840 02/18/1840 [facility] Assessment and Plan [id number] Encounter Date: February 21, 2018 [id number] Encounter Time: 09:00 [facility] Plan: Necessary Precautions, Individual/Group Therapy, Admin/Titrate Meds, Educate Patient Tobacco Medications: Started Multpiple Antipsychotics Used: No Problems: (1) Schizophrenia Status: Chronic Condition 1. continue treatment. 2. [address] hearing. Problem Qualifiers (1) Schizophrenia: Schizophrenia type: paranoid schizophrenia Qualified Codes: F20.0 - Paranoid schizophrenia JUMANA KEARNEY MD February 21, 2018 10:43
[2018-02-22] MEDS: DOCUSATE SODIUM 100 MG CAP PO SCH ×2 (08:24→21:29)
[2018-02-22] MEDS: MULTIVITAMINS TAB PO SCH (08:24)
--- NOTE | 2018-02-22 09:17 | BHS Progress Note ---
[facility] - Subjective Progress Notes Subjective Patient interacting well today in treatment team room. Poverty of speech in general continues, with patient quietly answering some questions. Patient's appetite remains intact, and sleep is good. Patient denies any pain, including dental pain, and notably has previously scheduled outpatient dental appointment for next week. Will attempt to make arrangements for patient to attend dental appointment. No other concerns. Suicidal Ideation: None Homicidal Ideation: None [facility] - Objective Physical Exam Vital Signs Vital Signs Date Time Temp Pulse Resp B/P (MAP) Pulse Ox O2 Delivery O2 Flow Rate FiO2 02/21/18 08:27 98.4 122 110/84 (93) 93 Room Air 02/21/18 06:22 15 02/19/18 04:27 2.0 Hematology Test 02/13/18 11:16 02/17/18 08:40 02/18/18 06:40 Tuberculin Skin Test 0 mm Urine Color Yellow Urine Clarity Clear Urine pH 6.0 pH (4.8-9.5) Urine Specific [place] 1.014 Urine Protein Negative mg/dL (NEGATIVE) Urine Glucose (UA) Negative mg/dL (NEGATIVE) Urine Ketones Negative mg/dL (NEGATIVE) Urine Blood Negative (NEGATIVE) Urine Nitrite Negative (NEGATIVE) Urine Bilirubin Negative (NEGATIVE) Urine Urobilinogen Negative mg/dL (0.2-1.9) Urine Leukocyte Esterase Negative (NEGATIVE) Urine RBC 1 /HPF (0-2/HPF) Urine WBC 2 /HPF (0-5/HPF) Urine Squamous Epithelial Cells None /LPF (</=FEW) Urine Bacteria Negative /HPF (NONE-FEW) Urine Mucus Few /HPF (NONE-FEW) Red Blood Count 4.07 M/uL (4.17-5.56) Mean Corpuscular Volume 87.8 fL (80.0-96.0) Mean Corpuscular Hemoglobin 30.2 pg (26.0-33.0) Mean Corpuscular Hemoglobin Concent 34.4 g/dL (32.0-36.0) Red Cell Distribution Width 14.6 % (11.5-14.5) Mean Platelet Volume 8.2 fL (7.2-11.1) Neutrophils (%) (Auto) 54.5 % (39.4-72.5) Lymphocytes (%) (Auto) 28.8 % (17.6-49.6) Monocytes (%) (Auto) 9.0 % (4.1-12.4) Eosinophils (%) (Auto) 7.5 % (0.4-6.7) Basophils (%) (Auto) 0.2 % (0.3-1.4) Nucleated RBC Relative Count (auto) 0.0 /100WBC Neutrophils # (Auto) 4.0 K/uL (2.0-7.4) Lymphocytes # (Auto) 2.1 K/uL (1.3-3.6) Monocytes # (Auto) 0.7 K/uL (0.3-1.0) Eosinophils # (Auto) 0.5 K/uL (0.0-0.5) Basophils # (Auto) 0.0 K/uL (0.0-0.1) Nucleated RBC Absolute Count (auto) 0.00 K/uL Sodium Level 141 mmol/L (137-145) Potassium Level 3.6 mmol/L (3.5-5.0) Chloride Level 106 mmol/L (98-107) Carbon Dioxide Level 24 mmol/L (22-31) Blood Urea Nitrogen 9 mg/dl (7-18) Creatinine 0.50 mg/dl (0.52-1.04) Glomerular Filtration Rate Calc > 60.0 Random Glucose 84 mg/dl (75-110) Calcium Level 8.9 mg/dl (8.4-10.2) Total Bilirubin 0.3 mg/dl (0.2-1.3) Aspartate Amino Transf (AST/SGOT) 17 U/L (0-35) Alanine Aminotransferase (ALT/SGPT) 40 U/L (0-56) Alkaline Phosphatase 80 U/L (0-126) Total Protein 5.7 gm/dl (6.3-8.2) Albumin 3.0 g/dl (3.5-5.0) Chemistry Test 02/13/18 11:16 02/17/18 08:40 02/18/18 06:40 Tuberculin Skin Test 0 mm Urine Color Yellow Urine Clarity Clear Urine pH 6.0 pH (4.8-9.5) Urine Specific [place] 1.014 Urine Protein Negative mg/dL (NEGATIVE) Urine Glucose (UA) Negative mg/dL (NEGATIVE) Urine Ketones Negative mg/dL (NEGATIVE) Urine Blood Negative (NEGATIVE) Urine Nitrite Negative (NEGATIVE) Urine Bilirubin Negative (NEGATIVE) Urine Urobilinogen Negative mg/dL (0.2-1.9) Urine Leukocyte Esterase Negative (NEGATIVE) Urine RBC 1 /HPF (0-2/HPF) Urine WBC 2 /HPF (0-5/HPF) Urine Squamous Epithelial Cells None /LPF (</=FEW) Urine Bacteria Negative /HPF (NONE-FEW) Urine Mucus Few /HPF (NONE-FEW) White Blood Count 7.3 k/uL (4.5-11.0) Red Blood Count 4.07 M/uL (4.17-5.56) Hemoglobin 12.3 g/dL (12.0-16.0) Hematocrit 35.7 % (34.0-47.0) Mean Corpuscular Volume 87.8 fL (80.0-96.0) Mean Corpuscular Hemoglobin 30.2 pg (26.0-33.0) Mean Corpuscular Hemoglobin Concent 34.4 g/dL (32.0-36.0) Red Cell Distribution Width 14.6 % (11.5-14.5) Platelet Count 204 K/uL (150-450) Mean Platelet Volume 8.2 fL (7.2-11.1) Neutrophils (%) (Auto) 54.5 % (39.4-72.5) Lymphocytes (%) (Auto) 28.8 % (17.6-49.6) Monocytes (%) (Auto) 9.0 % (4.1-12.4) Eosinophils (%) (Auto) 7.5 % (0.4-6.7) Basophils (%) (Auto) 0.2 % (0.3-1.4) Nucleated RBC Relative Count (auto) 0.0 /100WBC Neutrophils # (Auto) 4.0 K/uL (2.0-7.4) Lymphocytes # (Auto) 2.1 K/uL (1.3-3.6) Monocytes # (Auto) 0.7 K/uL (0.3-1.0) Eosinophils # (Auto) 0.5 K/uL (0.0-0.5) Basophils # (Auto) 0.0 K/uL (0.0-0.1) Nucleated RBC Absolute Count (auto) 0.00 K/uL Glomerular Filtration Rate Calc > 60.0 Calcium Level 8.9 mg/dl (8.4-10.2) Total Bilirubin 0.3 mg/dl (0.2-1.3) Aspartate Amino Transf (AST/SGOT) 17 U/L (0-35) Alanine Aminotransferase (ALT/SGPT) 40 U/L (0-56) Alkaline Phosphatase 80 U/L (0-126) Total Protein 5.7 gm/dl (6.3-8.2) Albumin 3.0 g/dl (3.5-5.0) Urinalysis Test 02/17/18 08:40 Urine Color Yellow Urine Clarity Clear Urine pH 6.0 pH (4.8-9.5) Urine Specific [place] 1.014 Urine Protein Negative mg/dL (NEGATIVE) Urine Glucose (UA) Negative mg/dL (NEGATIVE) Urine Ketones Negative mg/dL (NEGATIVE) Urine Blood Negative (NEGATIVE) Urine Nitrite Negative (NEGATIVE) Urine Bilirubin Negative (NEGATIVE) Urine Urobilinogen Negative mg/dL (0.2-1.9) Urine Leukocyte Esterase Negative (NEGATIVE) Urine RBC 1 /HPF (0-2/HPF) Urine WBC 2 /HPF (0-5/HPF) Urine Squamous Epithelial Cells None /LPF (</=FEW) Urine Bacteria Negative /HPF (NONE-FEW) Urine Mucus Few /HPF (NONE-FEW) Muscle Strength and Tone: WNL Gait and Station: Steady S Medications Reviewed: Side Effects, Benefits of Medication, Risks Allergies Reviewed: Yes Mental Status Exam General Appearance: No Good Eye Contact, Cooperative, Polite, Good Interaction , No Unkept, No Tearful, No Psychomotor Agitation, No Psychomotor Retardation, Bizarre Mannerisms Speech: Clear, No Normal Volume (very quiet), Delayed Mood: Other (Mood states less apparent in patient presentation related to schizophrenia, patient states "okay") Affect: Calm, Flat, Withdrawn Thought Process: Goal Directed (in some ways), Other (Scarcely verbalized. Does not express rationale for hitting herself.) Thought Content: No Suicidal Ideation, No Homicidal Ideation, No Delusions, Auditory Halllucinations (likely present. ), Other Sensorium: Clear Cognition: Alert & Oriented-Person, Alert & Oriented-Place, Alert & Oriented- Time, No Imtcr-Fgihherk-Fcprjcywh (partially) Memory: Immediate, Recent, Remote Intelligence: Average (historically average) Insight Judgment: Poor (limited by chronic mental illness. ) Result Diagram: 02/18/18 0640 02/18/18 0640 [facility] Assessment and Plan [id number] Encounter Date: Feb 22, 2018 Qjra-[id number] Encounter Time: 08:40 [facility] Plan: Necessary Precautions, Individual/Group Therapy, Admin/Titrate Meds, Educate Patient Tobacco Medications: Started Multpiple Antipsychotics Used: No Problems: (1) Schizophrenia Status: Chronic Condition 1. continue treatment. 2. no medication changes. Problem Qualifiers (1) Schizophrenia: Schizophrenia type: paranoid schizophrenia Qualified Codes: F20.0 - Paranoid schizophrenia JUMANA KEARNEY MD Feb 22, 2018 09:17
[2018-02-22 14:09] VITALS: BP 98/62
[2018-02-23] MEDS: DOCUSATE SODIUM 100 MG CAP PO SCH ×2 (08:24→21:18)
[2018-02-23] MEDS: MULTIVITAMINS TAB PO SCH (08:24)
--- NOTE | 2018-02-23 10:54 | BHS Progress Note ---
[facility] - Subjective Progress Notes Subjective "Can I go for a walk? Suicidal Ideation: None Homicidal Ideation: None [facility] - Objective Physical Exam Vital Signs Vital Signs 02/21/18 02/22/18 08:27 14:09 Temp 100.0 Pulse 129 Resp 16 B/P (MAP) 98/62 (74) Pulse Ox 93 O2 Delivery Room Air Muscle Strength and Tone: WNL Gait and Station: Steady [facility] Medications Reviewed: Side Effects, Benefits of Medication, Risks Allergies Reviewed: Yes Mental Status Exam General Appearance: No Good Eye Contact, Cooperative, Polite, Good Interaction , No Unkept, No Tearful, No Psychomotor Agitation, No Psychomotor Retardation, Bizarre Mannerisms Speech: Clear, No Normal Volume (very quiet), Delayed Mood: Other (Mood states less apparent in patient presentation related to schizophrenia, patient states "okay") Affect: Calm, Flat, Withdrawn Thought Process: Goal Directed (in some ways), Other (Scarcely verbalized. Does not express rationale for hitting herself.) Thought Content: No Suicidal Ideation, No Homicidal Ideation, No Delusions, Auditory Halllucinations (likely present. ), Other Sensorium: Clear Cognition: Alert & Oriented-Person, Alert & Oriented-Place, Alert & Oriented- Time, No Dmzak-Anfnorzk-Efysjouyx (partially) Memory: Immediate, Recent, Remote Intelligence: Average (historically average) Insight Judgment: Poor (limited by chronic mental illness. ) [facility] Assessment and Plan [id number] Encounter Date: Feb 23, 2018 Reft-uv-Hnhd Encounter Time: 08:45 [facility] Plan: Necessary Precautions, Individual/Group Therapy, Admin/Titrate Meds, Educate Patient Tobacco Medications: Started Multpiple Antipsychotics Used: No Problems: (1) Schizophrenia Status: Chronic Problem Qualifiers (1) Schizophrenia: Schizophrenia type: paranoid schizophrenia Qualified Codes: F20.0 - Paranoid schizophrenia ERVIN HOANG NP Feb 23, 2018 10:54
[2018-02-23 12:30] VITALS: BP 118/72
[2018-02-24] MEDS: DOCUSATE SODIUM 100 MG CAP PO SCH ×2 (08:14→21:14)
[2018-02-24] MEDS: MULTIVITAMINS TAB PO SCH (08:14)
--- NOTE | 2018-02-24 10:44 | BHS Progress Note ---
[facility] - Subjective Progress Notes Subjective "Okay." Client did attend treatment team rounds this am without incident. She does not make eye contact and answers questions with short answers. She denies hallucinations, denies pain, denies SI or HI. She denies concerns. Suicidal Ideation: None Homicidal Ideation: None [facility] - Objective Physical Exam Vital Signs Vital Signs 02/23/18 12:30 Temp 99.0 Pulse 102 Resp 16 B/P (MAP) 118/72 (87) Pulse Ox 98 O2 Delivery Room Air Muscle Strength and Tone: WNL Gait and Station: Steady [facility] Medications Reviewed: Side Effects, Benefits of Medication, Risks Allergies Reviewed: Yes Mental Status Exam General Appearance: No Good Eye Contact, Cooperative, Polite, Good Interaction , No Unkept, No Tearful, No Psychomotor Agitation, No Psychomotor Retardation, Bizarre Mannerisms Speech: Clear, No Normal Volume (very quiet), Delayed Mood: Other (Mood states less apparent in patient presentation related to schizophrenia, patient states "okay") Affect: Calm, Flat, Withdrawn Thought Process: Goal Directed (in some ways), Other (Scarcely verbalized. Does not express rationale for hitting herself.) Thought Content: No Suicidal Ideation, No Homicidal Ideation, No Delusions, Auditory Halllucinations (likely present. ), Other Sensorium: Clear Cognition: Alert & Oriented-Person, Alert & Oriented-Place, Alert & Oriented- Time, No Udagg-Zwleyyfc-Qscmuuogo (partially) Memory: Immediate, Recent, Remote Intelligence: Average (historically average) Insight Judgment: Poor (limited by chronic mental illness. ) [facility] Assessment and Plan [id number] Encounter Date: Feb 24, 2018 Lqtn-gf-Juer Encounter Time: 09:30 [facility] Plan: Necessary Precautions, Individual/Group Therapy, Admin/Titrate Meds, Educate Patient Tobacco Medications: Started Multpiple Antipsychotics Used: No Problems: (1) Schizophrenia Status: Chronic Problem Qualifiers (1) Schizophrenia: Schizophrenia type: paranoid schizophrenia Qualified Codes: F20.0 - Paranoid schizophrenia ERVIN HOANG NP Feb 24, 2018 10:44
[2018-02-24 11:15] VITALS: BP 108/72
[2018-02-24] MEDS: NICOTINE POLACRILEX 2 MG GUM PO PRN (19:32)
[2018-02-25 05:55] VITALS: BP 99/43
[2018-02-25] MEDS: MULTIVITAMINS TAB PO SCH (08:31)
[2018-02-25] MEDS: DOCUSATE SODIUM 100 MG CAP PO SCH ×2 (08:31→20:46)
--- NOTE | 2018-02-25 08:56 | BHS Progress Note ---
[facility] - Subjective Progress Notes Subjective Patient continues to do well over the weekend, with no complaints. No outbursts of anger, or obvious exacerbations of psychosis above baseline. Will continue same medications, appetite and sleep remain intact. No other concerns. Suicidal Ideation: None Homicidal Ideation: None [facility] - Objective Physical Exam Vital Signs Vital Signs Date Time Temp Pulse Resp B/P (MAP) Pulse Ox O2 Delivery O2 Flow Rate FiO2 02/25/18 05:55 97.9 61 99/43 (61) 97 Room Air 02/24/18 11:15 16 Hematology Test 02/13/18 11:16 02/17/18 08:40 02/18/18 06:40 Tuberculin Skin Test 0 mm Urine Color Yellow Urine Clarity Clear Urine pH 6.0 pH (4.8-9.5) Urine Specific [place] 1.014 Urine Protein Negative mg/dL (NEGATIVE) Urine Glucose (UA) Negative mg/dL (NEGATIVE) Urine Ketones Negative mg/dL (NEGATIVE) Urine Blood Negative (NEGATIVE) Urine Nitrite Negative (NEGATIVE) Urine Bilirubin Negative (NEGATIVE) Urine Urobilinogen Negative mg/dL (0.2-1.9) Urine Leukocyte Esterase Negative (NEGATIVE) Urine RBC 1 /HPF (0-2/HPF) Urine WBC 2 /HPF (0-5/HPF) Urine Squamous Epithelial Cells None /LPF (</=FEW) Urine Bacteria Negative /HPF (NONE-FEW) Urine Mucus Few /HPF (NONE-FEW) Red Blood Count 4.07 M/uL (4.17-5.56) Mean Corpuscular Volume 87.8 fL (80.0-96.0) Mean Corpuscular Hemoglobin 30.2 pg (26.0-33.0) Mean Corpuscular Hemoglobin Concent 34.4 g/dL (32.0-36.0) Red Cell Distribution Width 14.6 % (11.5-14.5) Mean Platelet Volume 8.2 fL (7.2-11.1) Neutrophils (%) (Auto) 54.5 % (39.4-72.5) Lymphocytes (%) (Auto) 28.8 % (17.6-49.6) Monocytes (%) (Auto) 9.0 % (4.1-12.4) Eosinophils (%) (Auto) 7.5 % (0.4-6.7) Basophils (%) (Auto) 0.2 % (0.3-1.4) Nucleated RBC Relative Count (auto) 0.0 /100WBC Neutrophils # (Auto) 4.0 K/uL (2.0-7.4) Lymphocytes # (Auto) 2.1 K/uL (1.3-3.6) Monocytes # (Auto) 0.7 K/uL (0.3-1.0) Eosinophils # (Auto) 0.5 K/uL (0.0-0.5) Basophils # (Auto) 0.0 K/uL (0.0-0.1) Nucleated RBC Absolute Count (auto) 0.00 K/uL Sodium Level 141 mmol/L (137-145) Potassium Level 3.6 mmol/L (3.5-5.0) Chloride Level 106 mmol/L (98-107) Carbon Dioxide Level 24 mmol/L (22-31) Blood Urea Nitrogen 9 mg/dl (7-18) Creatinine 0.50 mg/dl (0.52-1.04) Glomerular Filtration Rate Calc > 60.0 Random Glucose 84 mg/dl (75-110) Calcium Level 8.9 mg/dl (8.4-10.2) Total Bilirubin 0.3 mg/dl (0.2-1.3) Aspartate Amino Transf (AST/SGOT) 17 U/L (0-35) Alanine Aminotransferase (ALT/SGPT) 40 U/L (0-56) Alkaline Phosphatase 80 U/L (0-126) Total Protein 5.7 gm/dl (6.3-8.2) Albumin 3.0 g/dl (3.5-5.0) Chemistry Test 02/13/18 11:16 02/17/18 08:40 02/18/18 06:40 Tuberculin Skin Test 0 mm Urine Color Yellow Urine Clarity Clear Urine pH 6.0 pH (4.8-9.5) Urine Specific [place] 1.014 Urine Protein Negative mg/dL (NEGATIVE) Urine Glucose (UA) Negative mg/dL (NEGATIVE) Urine Ketones Negative mg/dL (NEGATIVE) Urine Blood Negative (NEGATIVE) Urine Nitrite Negative (NEGATIVE) Urine Bilirubin Negative (NEGATIVE) Urine Urobilinogen Negative mg/dL (0.2-1.9) Urine Leukocyte Esterase Negative (NEGATIVE) Urine RBC 1 /HPF (0-2/HPF) Urine WBC 2 /HPF (0-5/HPF) Urine Squamous Epithelial Cells None /LPF (</=FEW) Urine Bacteria Negative /HPF (NONE-FEW) Urine Mucus Few /HPF (NONE-FEW) White Blood Count 7.3 k/uL (4.5-11.0) Red Blood Count 4.07 M/uL (4.17-5.56) Hemoglobin 12.3 g/dL (12.0-16.0) Hematocrit 35.7 % (34.0-47.0) Mean Corpuscular Volume 87.8 fL (80.0-96.0) Mean Corpuscular Hemoglobin 30.2 pg (26.0-33.0) Mean Corpuscular Hemoglobin Concent 34.4 g/dL (32.0-36.0) Red Cell Distribution Width 14.6 % (11.5-14.5) Platelet Count 204 K/uL (150-450) Mean Platelet Volume 8.2 fL (7.2-11.1) Neutrophils (%) (Auto) 54.5 % (39.4-72.5) Lymphocytes (%) (Auto) 28.8 % (17.6-49.6) Monocytes (%) (Auto) 9.0 % (4.1-12.4) Eosinophils (%) (Auto) 7.5 % (0.4-6.7) Basophils (%) (Auto) 0.2 % (0.3-1.4) Nucleated RBC Relative Count (auto) 0.0 /100WBC Neutrophils # (Auto) 4.0 K/uL (2.0-7.4) Lymphocytes # (Auto) 2.1 K/uL (1.3-3.6) Monocytes # (Auto) 0.7 K/uL (0.3-1.0) Eosinophils # (Auto) 0.5 K/uL (0.0-0.5) Basophils # (Auto) 0.0 K/uL (0.0-0.1) Nucleated RBC Absolute Count (auto) 0.00 K/uL Glomerular Filtration Rate Calc > 60.0 Calcium Level 8.9 mg/dl (8.4-10.2) Total Bilirubin 0.3 mg/dl (0.2-1.3) Aspartate Amino Transf (AST/SGOT) 17 U/L (0-35) Alanine Aminotransferase (ALT/SGPT) 40 U/L (0-56) Alkaline Phosphatase 80 U/L (0-126) Total Protein 5.7 gm/dl (6.3-8.2) Albumin 3.0 g/dl (3.5-5.0) Urinalysis Test 02/17/18 08:40 Urine Color Yellow Urine Clarity Clear Urine pH 6.0 pH (4.8-9.5) Urine Specific [place] 1.014 Urine Protein Negative mg/dL (NEGATIVE) Urine Glucose (UA) Negative mg/dL (NEGATIVE) Urine Ketones Negative mg/dL (NEGATIVE) Urine Blood Negative (NEGATIVE) Urine Nitrite Negative (NEGATIVE) Urine Bilirubin Negative (NEGATIVE) Urine Urobilinogen Negative mg/dL (0.2-1.9) Urine Leukocyte Esterase Negative (NEGATIVE) Urine RBC 1 /HPF (0-2/HPF) Urine WBC 2 /HPF (0-5/HPF) Urine Squamous Epithelial Cells None /LPF (</=FEW) Urine Bacteria Negative /HPF (NONE-FEW) Urine Mucus Few /HPF (NONE-FEW) Muscle Strength and Tone: WNL Gait and Station: Steady [facility] Medications Reviewed: Side Effects, Benefits of Medication, Risks Allergies Reviewed: Yes Mental Status Exam General Appearance: No Good Eye Contact, Cooperative, Polite, Good Interaction , No Unkept, No Tearful, No Psychomotor Agitation, No Psychomotor Retardation, Bizarre Mannerisms, No Tics Speech: Clear, No Normal Volume (very quiet), Delayed Mood: Other (Mood states less apparent in patient presentation related to schizophrenia, patient states "okay") Affect: Calm, Flat, Withdrawn Thought Process: Goal Directed (in some ways), Other (Scarcely verbalized. Does not express rationale for hitting herself.) Thought Content: No Suicidal Ideation, No Homicidal Ideation, No Delusions, Auditory Halllucinations (likely present. ), Other Sensorium: Clear Cognition: Alert & Oriented-Person, Alert & Oriented-Place, Alert & Oriented- Time, No Niwqt-Osshfnfa-Idjxlxqvz (partially) Memory: Immediate, Recent, Remote Intelligence: Average (historically average) Insight Judgment: Poor (limited by chronic mental illness. ) [facility] Assessment and Plan [id number] Encounter Date: Feb 25, 2018 [id number] Encounter Time: 08:40 [facility] Plan: Necessary Precautions, Individual/Group Therapy, Admin/Titrate Meds, Educate Patient Tobacco Medications: Started Multpiple Antipsychotics Used: No Problems: (1) Schizophrenia Status: Chronic Condition 1. continue treatment. 2. no medication changes. 3. hearing this week 4. 50mg risperdal consta injection on Sunday. Problem Qualifiers (1) Schizophrenia: Schizophrenia type: paranoid schizophrenia Qualified Codes: F20.0 - Paranoid schizophrenia JUMANA KEARNEY MD Feb 25, 2018 08:56
[2018-02-26 04:53] VITALS: BP 122/95
[2018-02-26] MEDS: DOCUSATE SODIUM 100 MG CAP PO SCH ×2 (08:19→20:20)
[2018-02-26] MEDS: MULTIVITAMINS TAB PO SCH (08:19)
--- NOTE | 2018-02-26 09:47 | BHS Progress Note ---
BHS - Subjective Progress Notes Subjective Patient continues to be cooperative on the unit, and voicing no complaints. Sleep and appetite good, no evidence of exacerbation of psychosis above baseline. Will continue treatment, dental appointment and hearing tomorrow. No other concerns today. Suicidal Ideation: None Homicidal Ideation: None S - Objective Physical Exam Vital Signs Vital Signs Date Time Temp Pulse Resp B/P (MAP) Pulse Ox O2 Delivery O2 Flow Rate FiO2 02/26/18 04:53 98.4 105 122/95 (104) 93 Room Air 02/24/18 11:15 16 Hematology Test 02/13/18 11:16 02/17/18 08:40 02/18/18 06:40 Tuberculin Skin Test 0 mm Urine Color Yellow Urine Clarity Clear Urine pH 6.0 pH (4.8-9.5) Urine Specific [place] 1.014 Urine Protein Negative mg/dL (NEGATIVE) Urine Glucose (UA) Negative mg/dL (NEGATIVE) Urine Ketones Negative mg/dL (NEGATIVE) Urine Blood Negative (NEGATIVE) Urine Nitrite Negative (NEGATIVE) Urine Bilirubin Negative (NEGATIVE) Urine Urobilinogen Negative mg/dL (0.2-1.9) Urine Leukocyte Esterase Negative (NEGATIVE) Urine RBC 1 /HPF (0-2/HPF) Urine WBC 2 /HPF (0-5/HPF) Urine Squamous Epithelial Cells None /LPF (</=FEW) Urine Bacteria Negative /HPF (NONE-FEW) Urine Mucus Few /HPF (NONE-FEW) Red Blood Count 4.07 M/uL (4.17-5.56) Mean Corpuscular Volume 87.8 fL (80.0-96.0) Mean Corpuscular Hemoglobin 30.2 pg (26.0-33.0) Mean Corpuscular Hemoglobin Concent 34.4 g/dL (32.0-36.0) Red Cell Distribution Width 14.6 % (11.5-14.5) Mean Platelet Volume 8.2 fL (7.2-11.1) Neutrophils (%) (Auto) 54.5 % (39.4-72.5) Lymphocytes (%) (Auto) 28.8 % (17.6-49.6) Monocytes (%) (Auto) 9.0 % (4.1-12.4) Eosinophils (%) (Auto) 7.5 % (0.4-6.7) Basophils (%) (Auto) 0.2 % (0.3-1.4) Nucleated RBC Relative Count (auto) 0.0 /100WBC Neutrophils # (Auto) 4.0 K/uL (2.0-7.4) Lymphocytes # (Auto) 2.1 K/uL (1.3-3.6) Monocytes # (Auto) 0.7 K/uL (0.3-1.0) Eosinophils # (Auto) 0.5 K/uL (0.0-0.5) Basophils # (Auto) 0.0 K/uL (0.0-0.1) Nucleated RBC Absolute Count (auto) 0.00 K/uL Sodium Level 141 mmol/L (137-145) Potassium Level 3.6 mmol/L (3.5-5.0) Chloride Level 106 mmol/L (98-107) Carbon Dioxide Level 24 mmol/L (22-31) Blood Urea Nitrogen 9 mg/dl (7-18) Creatinine 0.50 mg/dl (0.52-1.04) Glomerular Filtration Rate Calc > 60.0 Random Glucose 84 mg/dl (75-110) Calcium Level 8.9 mg/dl (8.4-10.2) Total Bilirubin 0.3 mg/dl (0.2-1.3) Aspartate Amino Transf (AST/SGOT) 17 U/L (0-35) Alanine Aminotransferase (ALT/SGPT) 40 U/L (0-56) Alkaline Phosphatase 80 U/L (0-126) Total Protein 5.7 gm/dl (6.3-8.2) Albumin 3.0 g/dl (3.5-5.0) Chemistry Test 02/13/18 11:16 02/17/18 08:40 02/18/18 06:40 Tuberculin Skin Test 0 mm Urine Color Yellow Urine Clarity Clear Urine pH 6.0 pH (4.8-9.5) Urine Specific [place] 1.014 Urine Protein Negative mg/dL (NEGATIVE) Urine Glucose (UA) Negative mg/dL (NEGATIVE) Urine Ketones Negative mg/dL (NEGATIVE) Urine Blood Negative (NEGATIVE) Urine Nitrite Negative (NEGATIVE) Urine Bilirubin Negative (NEGATIVE) Urine Urobilinogen Negative mg/dL (0.2-1.9) Urine Leukocyte Esterase Negative (NEGATIVE) Urine RBC 1 /HPF (0-2/HPF) Urine WBC 2 /HPF (0-5/HPF) Urine Squamous Epithelial Cells None /LPF (</=FEW) Urine Bacteria Negative /HPF (NONE-FEW) Urine Mucus Few /HPF (NONE-FEW) White Blood Count 7.3 k/uL (4.5-11.0) Red Blood Count 4.07 M/uL (4.17-5.56) Hemoglobin 12.3 g/dL (12.0-16.0) Hematocrit 35.7 % (34.0-47.0) Mean Corpuscular Volume 87.8 fL (80.0-96.0) Mean Corpuscular Hemoglobin 30.2 pg (26.0-33.0) Mean Corpuscular Hemoglobin Concent 34.4 g/dL (32.0-36.0) Red Cell Distribution Width 14.6 % (11.5-14.5) Platelet Count 204 K/uL (150-450) Mean Platelet Volume 8.2 fL (7.2-11.1) Neutrophils (%) (Auto) 54.5 % (39.4-72.5) Lymphocytes (%) (Auto) 28.8 % (17.6-49.6) Monocytes (%) (Auto) 9.0 % (4.1-12.4) Eosinophils (%) (Auto) 7.5 % (0.4-6.7) Basophils (%) (Auto) 0.2 % (0.3-1.4) Nucleated RBC Relative Count (auto) 0.0 /100WBC Neutrophils # (Auto) 4.0 K/uL (2.0-7.4) Lymphocytes # (Auto) 2.1 K/uL (1.3-3.6) Monocytes # (Auto) 0.7 K/uL (0.3-1.0) Eosinophils # (Auto) 0.5 K/uL (0.0-0.5) Basophils # (Auto) 0.0 K/uL (0.0-0.1) Nucleated RBC Absolute Count (auto) 0.00 K/uL Glomerular Filtration Rate Calc > 60.0 Calcium Level 8.9 mg/dl (8.4-10.2) Total Bilirubin 0.3 mg/dl (0.2-1.3) Aspartate Amino Transf (AST/SGOT) 17 U/L (0-35) Alanine Aminotransferase (ALT/SGPT) 40 U/L (0-56) Alkaline Phosphatase 80 U/L (0-126) Total Protein 5.7 gm/dl (6.3-8.2) Albumin 3.0 g/dl (3.5-5.0) Urinalysis Test 02/17/18 08:40 Urine Color Yellow Urine Clarity Clear Urine pH 6.0 pH (4.8-9.5) Urine Specific [place] 1.014 Urine Protein Negative mg/dL (NEGATIVE) Urine Glucose (UA) Negative mg/dL (NEGATIVE) Urine Ketones Negative mg/dL (NEGATIVE) Urine Blood Negative (NEGATIVE) Urine Nitrite Negative (NEGATIVE) Urine Bilirubin Negative (NEGATIVE) Urine Urobilinogen Negative mg/dL (0.2-1.9) Urine Leukocyte Esterase Negative (NEGATIVE) Urine RBC 1 /HPF (0-2/HPF) Urine WBC 2 /HPF (0-5/HPF) Urine Squamous Epithelial Cells None /LPF (</=FEW) Urine Bacteria Negative /HPF (NONE-FEW) Urine Mucus Few /HPF (NONE-FEW) Muscle Strength and Tone: WNL Gait and Station: Steady S Medications Reviewed: Side Effects, Benefits of Medication, Risks Allergies Reviewed: Yes Mental Status Exam General Appearance: No Good Eye Contact, Cooperative, Polite, Good Interaction , No Unkept, No Tearful, No Psychomotor Agitation, No Psychomotor Retardation, Bizarre Mannerisms, No Tics Speech: Clear, No Normal Volume (very quiet), Delayed Mood: Other (Mood states less apparent in patient presentation related to schizophrenia, patient states "okay") Affect: Calm, Flat, Withdrawn Thought Process: Goal Directed (in some ways), Other (Scarcely verbalized. Does not express rationale for hitting herself.) Thought Content: No Suicidal Ideation, No Homicidal Ideation, No Delusions, Auditory Halllucinations (likely present. ), Other Sensorium: Clear Cognition: Alert & Oriented-Person, Alert & Oriented-Place, Alert & Oriented- Time, No Dsjme-Cvmdgsyy-Bvrfsbyuf (partially) Memory: Immediate, Recent, Remote Intelligence: Average (historically average) Insight Judgment: Poor (limited by chronic mental illness. ) [facility] Assessment and Plan [id number] Encounter Date: Feb 26, 2018 [id number] Encounter Time: 10:00 [facility] Plan: Necessary Precautions, Individual/Group Therapy, Admin/Titrate Meds, Educate Patient Tobacco Medications: Started Multpiple Antipsychotics Used: No Problems: (1) Schizophrenia Status: Chronic Condition 1. continue treatment. 2. dental appointment, hearing and consta injection tomorrow. Problem Qualifiers (1) Schizophrenia: Schizophrenia type: paranoid schizophrenia Qualified Codes: F20.0 - Paranoid schizophrenia JUMANA KEARNEY MD Feb 26, 2018 09:47
[2018-02-27 05:19] VITALS: BP 120/77
[2018-02-27] MEDS: MULTIVITAMINS TAB PO SCH (08:01)
[2018-02-27] MEDS: DOCUSATE SODIUM 100 MG CAP PO SCH ×2 (08:01→20:38)
[2018-02-27] MEDS ORDERED: RISPERIDONE 25 MG/2 ML IM ONLY ONE (09:00)
--- NOTE | 2018-02-27 09:05 | BHS Progress Note ---
BHS - Subjective Progress Notes Subjective Patient able to tolerate court hearing this AM, with no evidence of frustration. Patient has been committed to the [facility], in order to await eventual transfer to [facility]. Patient denies any complaints, will have consta injection today, after patient returns from her dental appointment. No other concerns today. Suicidal Ideation: None Homicidal Ideation: None BHS - Objective Physical Exam Vital Signs Vital Signs Date Time Temp Pulse Resp B/P (MAP) Pulse Ox O2 Delivery O2 Flow Rate FiO2 02/27/18 05:19 99.4 74 15 120/77 (91) 94 Room Air Hematology Test 02/13/18 11:16 02/17/18 08:40 02/18/18 06:40 Tuberculin Skin Test 0 mm Urine Color Yellow Urine Clarity Clear Urine pH 6.0 pH (4.8-9.5) Urine Specific [place] 1.014 Urine Protein Negative mg/dL (NEGATIVE) Urine Glucose (UA) Negative mg/dL (NEGATIVE) Urine Ketones Negative mg/dL (NEGATIVE) Urine Blood Negative (NEGATIVE) Urine Nitrite Negative (NEGATIVE) Urine Bilirubin Negative (NEGATIVE) Urine Urobilinogen Negative mg/dL (0.2-1.9) Urine Leukocyte Esterase Negative (NEGATIVE) Urine RBC 1 /HPF (0-2/HPF) Urine WBC 2 /HPF (0-5/HPF) Urine Squamous Epithelial Cells None /LPF (</=FEW) Urine Bacteria Negative /HPF (NONE-FEW) Urine Mucus Few /HPF (NONE-FEW) Red Blood Count 4.07 M/uL (4.17-5.56) Mean Corpuscular Volume 87.8 fL (80.0-96.0) Mean Corpuscular Hemoglobin 30.2 pg (26.0-33.0) Mean Corpuscular Hemoglobin Concent 34.4 g/dL (32.0-36.0) Red Cell Distribution Width 14.6 % (11.5-14.5) Mean Platelet Volume 8.2 fL (7.2-11.1) Neutrophils (%) (Auto) 54.5 % (39.4-72.5) Lymphocytes (%) (Auto) 28.8 % (17.6-49.6) Monocytes (%) (Auto) 9.0 % (4.1-12.4) Eosinophils (%) (Auto) 7.5 % (0.4-6.7) Basophils (%) (Auto) 0.2 % (0.3-1.4) Nucleated RBC Relative Count (auto) 0.0 /100WBC Neutrophils # (Auto) 4.0 K/uL (2.0-7.4) Lymphocytes # (Auto) 2.1 K/uL (1.3-3.6) Monocytes # (Auto) 0.7 K/uL (0.3-1.0) Eosinophils # (Auto) 0.5 K/uL (0.0-0.5) Basophils # (Auto) 0.0 K/uL (0.0-0.1) Nucleated RBC Absolute Count (auto) 0.00 K/uL Sodium Level 141 mmol/L (137-145) Potassium Level 3.6 mmol/L (3.5-5.0) Chloride Level 106 mmol/L (98-107) Carbon Dioxide Level 24 mmol/L (22-31) Blood Urea Nitrogen 9 mg/dl (7-18) Creatinine 0.50 mg/dl (0.52-1.04) Glomerular Filtration Rate Calc > 60.0 Random Glucose 84 mg/dl (75-110) Calcium Level 8.9 mg/dl (8.4-10.2) Total Bilirubin 0.3 mg/dl (0.2-1.3) Aspartate Amino Transf (AST/SGOT) 17 U/L (0-35) Alanine Aminotransferase (ALT/SGPT) 40 U/L (0-56) Alkaline Phosphatase 80 U/L (0-126) Total Protein 5.7 gm/dl (6.3-8.2) Albumin 3.0 g/dl (3.5-5.0) Chemistry Test 02/13/18 11:16 02/17/18 08:40 02/18/18 06:40 Tuberculin Skin Test 0 mm Urine Color Yellow Urine Clarity Clear Urine pH 6.0 pH (4.8-9.5) Urine Specific [place] 1.014 Urine Protein Negative mg/dL (NEGATIVE) Urine Glucose (UA) Negative mg/dL (NEGATIVE) Urine Ketones Negative mg/dL (NEGATIVE) Urine Blood Negative (NEGATIVE) Urine Nitrite Negative (NEGATIVE) Urine Bilirubin Negative (NEGATIVE) Urine Urobilinogen Negative mg/dL (0.2-1.9) Urine Leukocyte Esterase Negative (NEGATIVE) Urine RBC 1 /HPF (0-2/HPF) Urine WBC 2 /HPF (0-5/HPF) Urine Squamous Epithelial Cells None /LPF (</=FEW) Urine Bacteria Negative /HPF (NONE-FEW) Urine Mucus Few /HPF (NONE-FEW) White Blood Count 7.3 k/uL (4.5-11.0) Red Blood Count 4.07 M/uL (4.17-5.56) Hemoglobin 12.3 g/dL (12.0-16.0) Hematocrit 35.7 % (34.0-47.0) Mean Corpuscular Volume 87.8 fL (80.0-96.0) Mean Corpuscular Hemoglobin 30.2 pg (26.0-33.0) Mean Corpuscular Hemoglobin Concent 34.4 g/dL (32.0-36.0) Red Cell Distribution Width 14.6 % (11.5-14.5) Platelet Count 204 K/uL (150-450) Mean Platelet Volume 8.2 fL (7.2-11.1) Neutrophils (%) (Auto) 54.5 % (39.4-72.5) Lymphocytes (%) (Auto) 28.8 % (17.6-49.6) Monocytes (%) (Auto) 9.0 % (4.1-12.4) Eosinophils (%) (Auto) 7.5 % (0.4-6.7) Basophils (%) (Auto) 0.2 % (0.3-1.4) Nucleated RBC Relative Count (auto) 0.0 /100WBC Neutrophils # (Auto) 4.0 K/uL (2.0-7.4) Lymphocytes # (Auto) 2.1 K/uL (1.3-3.6) Monocytes # (Auto) 0.7 K/uL (0.3-1.0) Eosinophils # (Auto) 0.5 K/uL (0.0-0.5) Basophils # (Auto) 0.0 K/uL (0.0-0.1) Nucleated RBC Absolute Count (auto) 0.00 K/uL Glomerular Filtration Rate Calc > 60.0 Calcium Level 8.9 mg/dl (8.4-10.2) Total Bilirubin 0.3 mg/dl (0.2-1.3) Aspartate Amino Transf (AST/SGOT) 17 U/L (0-35) Alanine Aminotransferase (ALT/SGPT) 40 U/L (0-56) Alkaline Phosphatase 80 U/L (0-126) Total Protein 5.7 gm/dl (6.3-8.2) Albumin 3.0 g/dl (3.5-5.0) Urinalysis Test 02/17/18 08:40 Urine Color Yellow Urine Clarity Clear Urine pH 6.0 pH (4.8-9.5) Urine Specific [place] 1.014 Urine Protein Negative mg/dL (NEGATIVE) Urine Glucose (UA) Negative mg/dL (NEGATIVE) Urine Ketones Negative mg/dL (NEGATIVE) Urine Blood Negative (NEGATIVE) Urine Nitrite Negative (NEGATIVE) Urine Bilirubin Negative (NEGATIVE) Urine Urobilinogen Negative mg/dL (0.2-1.9) Urine Leukocyte Esterase Negative (NEGATIVE) Urine RBC 1 /HPF (0-2/HPF) Urine WBC 2 /HPF (0-5/HPF) Urine Squamous Epithelial Cells None /LPF (</=FEW) Urine Bacteria Negative /HPF (NONE-FEW) Urine Mucus Few /HPF (NONE-FEW) Muscle Strength and Tone: WNL Gait and Station: Steady [facility] Medications Reviewed: Side Effects, Benefits of Medication, Risks Allergies Reviewed: Yes Mental Status Exam General Appearance: No Good Eye Contact, Cooperative, Polite, Good Interaction , No Unkept, No Tearful, No Psychomotor Agitation, No Psychomotor Retardation, Bizarre Mannerisms, No Tics Speech: Clear, No Normal Volume (very quiet), Delayed Mood: Other (Mood states less apparent in patient presentation related to schizophrenia, patient states "okay") Affect: Calm, Flat, Withdrawn Thought Process: Goal Directed (in some ways), Other (Scarcely verbalized. Does not express rationale for hitting herself.) Thought Content: No Suicidal Ideation, No Homicidal Ideation, No Delusions, Auditory Halllucinations (likely present. ), Other Sensorium: Clear Cognition: Alert & Oriented-Person, Alert & Oriented-Place, Alert & Oriented- Time, No Ktimu-Mhtkaogk-Eelfesejy (partially) Memory: Immediate, Recent, Remote Intelligence: Average (historically average) Insight Judgment: Poor (limited by chronic mental illness. ) [facility] Assessment and Plan [id number] Encounter Date: Feb 27, 2018 [id number] Encounter Time: 08:40 [facility] Plan: Necessary Precautions, Individual/Group Therapy, Admin/Titrate Meds, Educate Patient Tobacco Medications: Started Multpiple Antipsychotics Used: No Problems: (1) Schizophrenia Status: Chronic Condition 1. [place] [facility] [place] consta today. 3. dental appointment today. 4. [place] [facility] [place], Problem Qualifiers (1) Schizophrenia: Schizophrenia type: paranoid schizophrenia Qualified Codes: F20.0 - Paranoid schizophrenia JUMANA KEARNEY MD Feb 27, 2018 09:05
[2018-02-27] MEDS: ACETAMINOPHEN 325 MG TAB PO PRN (12:12)
[2018-02-27 14:39] VITALS: BP 136/80
[2018-02-28 05:57] VITALS: BP 94/65
[2018-02-28] MEDS: DOCUSATE SODIUM 100 MG CAP PO SCH ×2 (08:16→22:01)
[2018-02-28] MEDS: MULTIVITAMINS TAB PO SCH (08:16)
--- NOTE | 2018-02-28 09:24 | BHS Progress Note ---
BHS - Subjective Progress Notes Subjective Patient understands she will be going to [place], and remains very compliant on the unit. Patient denies any significant dental pain, from yesterday's extraction, and appetite remains good. Risperdal consta administered yesterday. Suicidal Ideation: None Homicidal Ideation: None BHS - Objective Physical Exam Vital Signs Vital Signs Date Time Temp Pulse Resp B/P (MAP) Pulse Ox O2 Delivery O2 Flow Rate FiO2 02/28/18 05:57 99.1 69 15 94/65 (75) 94 Room Air Hematology Test 02/13/18 11:16 02/17/18 08:40 02/18/18 06:40 Tuberculin Skin Test 0 mm Urine Color Yellow Urine Clarity Clear Urine pH 6.0 pH (4.8-9.5) Urine Specific [place] 1.014 Urine Protein Negative mg/dL (NEGATIVE) Urine Glucose (UA) Negative mg/dL (NEGATIVE) Urine Ketones Negative mg/dL (NEGATIVE) Urine Blood Negative (NEGATIVE) Urine Nitrite Negative (NEGATIVE) Urine Bilirubin Negative (NEGATIVE) Urine Urobilinogen Negative mg/dL (0.2-1.9) Urine Leukocyte Esterase Negative (NEGATIVE) Urine RBC 1 /HPF (0-2/HPF) Urine WBC 2 /HPF (0-5/HPF) Urine Squamous Epithelial Cells None /LPF (</=FEW) Urine Bacteria Negative /HPF (NONE-FEW) Urine Mucus Few /HPF (NONE-FEW) Red Blood Count 4.07 M/uL (4.17-5.56) Mean Corpuscular Volume 87.8 fL (80.0-96.0) Mean Corpuscular Hemoglobin 30.2 pg (26.0-33.0) Mean Corpuscular Hemoglobin Concent 34.4 g/dL (32.0-36.0) Red Cell Distribution Width 14.6 % (11.5-14.5) Mean Platelet Volume 8.2 fL (7.2-11.1) Neutrophils (%) (Auto) 54.5 % (39.4-72.5) Lymphocytes (%) (Auto) 28.8 % (17.6-49.6) Monocytes (%) (Auto) 9.0 % (4.1-12.4) Eosinophils (%) (Auto) 7.5 % (0.4-6.7) Basophils (%) (Auto) 0.2 % (0.3-1.4) Nucleated RBC Relative Count (auto) 0.0 /100WBC Neutrophils # (Auto) 4.0 K/uL (2.0-7.4) Lymphocytes # (Auto) 2.1 K/uL (1.3-3.6) Monocytes # (Auto) 0.7 K/uL (0.3-1.0) Eosinophils # (Auto) 0.5 K/uL (0.0-0.5) Basophils # (Auto) 0.0 K/uL (0.0-0.1) Nucleated RBC Absolute Count (auto) 0.00 K/uL Sodium Level 141 mmol/L (137-145) Potassium Level 3.6 mmol/L (3.5-5.0) Chloride Level 106 mmol/L (98-107) Carbon Dioxide Level 24 mmol/L (22-31) Blood Urea Nitrogen 9 mg/dl (7-18) Creatinine 0.50 mg/dl (0.52-1.04) Glomerular Filtration Rate Calc > 60.0 Random Glucose 84 mg/dl (75-110) Calcium Level 8.9 mg/dl (8.4-10.2) Total Bilirubin 0.3 mg/dl (0.2-1.3) Aspartate Amino Transf (AST/SGOT) 17 U/L (0-35) Alanine Aminotransferase (ALT/SGPT) 40 U/L (0-56) Alkaline Phosphatase 80 U/L (0-126) Total Protein 5.7 gm/dl (6.3-8.2) Albumin 3.0 g/dl (3.5-5.0) Chemistry Test 02/13/18 11:16 02/17/18 08:40 02/18/18 06:40 Tuberculin Skin Test 0 mm Urine Color Yellow Urine Clarity Clear Urine pH 6.0 pH (4.8-9.5) Urine Specific [place] 1.014 Urine Protein Negative mg/dL (NEGATIVE) Urine Glucose (UA) Negative mg/dL (NEGATIVE) Urine Ketones Negative mg/dL (NEGATIVE) Urine Blood Negative (NEGATIVE) Urine Nitrite Negative (NEGATIVE) Urine Bilirubin Negative (NEGATIVE) Urine Urobilinogen Negative mg/dL (0.2-1.9) Urine Leukocyte Esterase Negative (NEGATIVE) Urine RBC 1 /HPF (0-2/HPF) Urine WBC 2 /HPF (0-5/HPF) Urine Squamous Epithelial Cells None /LPF (</=FEW) Urine Bacteria Negative /HPF (NONE-FEW) Urine Mucus Few /HPF (NONE-FEW) White Blood Count 7.3 k/uL (4.5-11.0) Red Blood Count 4.07 M/uL (4.17-5.56) Hemoglobin 12.3 g/dL (12.0-16.0) Hematocrit 35.7 % (34.0-47.0) Mean Corpuscular Volume 87.8 fL (80.0-96.0) Mean Corpuscular Hemoglobin 30.2 pg (26.0-33.0) Mean Corpuscular Hemoglobin Concent 34.4 g/dL (32.0-36.0) Red Cell Distribution Width 14.6 % (11.5-14.5) Platelet Count 204 K/uL (150-450) Mean Platelet Volume 8.2 fL (7.2-11.1) Neutrophils (%) (Auto) 54.5 % (39.4-72.5) Lymphocytes (%) (Auto) 28.8 % (17.6-49.6) Monocytes (%) (Auto) 9.0 % (4.1-12.4) Eosinophils (%) (Auto) 7.5 % (0.4-6.7) Basophils (%) (Auto) 0.2 % (0.3-1.4) Nucleated RBC Relative Count (auto) 0.0 /100WBC Neutrophils # (Auto) 4.0 K/uL (2.0-7.4) Lymphocytes # (Auto) 2.1 K/uL (1.3-3.6) Monocytes # (Auto) 0.7 K/uL (0.3-1.0) Eosinophils # (Auto) 0.5 K/uL (0.0-0.5) Basophils # (Auto) 0.0 K/uL (0.0-0.1) Nucleated RBC Absolute Count (auto) 0.00 K/uL Glomerular Filtration Rate Calc > 60.0 Calcium Level 8.9 mg/dl (8.4-10.2) Total Bilirubin 0.3 mg/dl (0.2-1.3) Aspartate Amino Transf (AST/SGOT) 17 U/L (0-35) Alanine Aminotransferase (ALT/SGPT) 40 U/L (0-56) Alkaline Phosphatase 80 U/L (0-126) Total Protein 5.7 gm/dl (6.3-8.2) Albumin 3.0 g/dl (3.5-5.0) Urinalysis Test 02/17/18 08:40 Urine Color Yellow Urine Clarity Clear Urine pH 6.0 pH (4.8-9.5) Urine Specific [place] 1.014 Urine Protein Negative mg/dL (NEGATIVE) Urine Glucose (UA) Negative mg/dL (NEGATIVE) Urine Ketones Negative mg/dL (NEGATIVE) Urine Blood Negative (NEGATIVE) Urine Nitrite Negative (NEGATIVE) Urine Bilirubin Negative (NEGATIVE) Urine Urobilinogen Negative mg/dL (0.2-1.9) Urine Leukocyte Esterase Negative (NEGATIVE) Urine RBC 1 /HPF (0-2/HPF) Urine WBC 2 /HPF (0-5/HPF) Urine Squamous Epithelial Cells None /LPF (</=FEW) Urine Bacteria Negative /HPF (NONE-FEW) Urine Mucus Few /HPF (NONE-FEW) Muscle Strength and Tone: WNL Gait and Station: Steady [facility] Medications Reviewed: Side Effects, Benefits of Medication, Risks Allergies Reviewed: Yes Mental Status Exam General Appearance: Casual, Well Groomed, No Good Eye Contact, Cooperative, Polite, Good Interaction, No Unkept, No Tearful, No Psychomotor Agitation, No Psychomotor Retardation, Bizarre Mannerisms, No Tics Speech: Clear, No Normal Volume (very quiet), Delayed Mood: Other (Mood states less apparent in patient presentation related to schizophrenia, patient states "okay") Affect: Calm, Flat, Withdrawn Thought Process: Goal Directed (in some ways), Other (Scarcely verbalized. Does not express rationale for hitting herself.) Thought Content: No Suicidal Ideation, No Homicidal Ideation, No Delusions, Auditory Halllucinations (likely present. ), Other Sensorium: Clear Cognition: Alert & Oriented-Person, Alert & Oriented-Place, Alert & Oriented- Time, No Hoabd-Pbzoxinp-Obsafnghe (partially) Memory: Immediate, Recent, Remote Intelligence: Average (historically average) Insight Judgment: Poor (limited by chronic mental illness. ) [facility] Assessment and Plan Jcip-[id number] Encounter Date: Feb 28, 2018 [id number] Encounter Time: 09:00 [facility] Plan: Necessary Precautions, Individual/Group Therapy, Admin/Titrate Meds, Educate Patient Tobacco Medications: Started Multpiple Antipsychotics Used: No Problems: (1) Schizophrenia Status: Chronic Condition 1. continue treatment. [facility] Problem Qualifiers (1) Schizophrenia: Schizophrenia type: paranoid schizophrenia Qualified Codes: F20.0 - Paranoid schizophrenia JUMANA KEARNEY MD Feb 28, 2018 09:23
[2018-02-28 18:13] VITALS: BP 129/60
[2018-02-28] MEDS: ACETAMINOPHEN 325 MG TAB PO PRN (19:46)
[2018-03-01 06:06] VITALS: BP 88/58
[2018-03-01] MEDS: DOCUSATE SODIUM 100 MG CAP PO SCH ×2 (08:12→20:49)
[2018-03-01] MEDS: MULTIVITAMINS TAB PO SCH (08:12)
--- NOTE | 2018-03-01 09:01 | BHS Progress Note ---
BHS - Subjective Progress Notes Subjective Patient remains pleasant on the unit, some lethargy yesterday, potentially related to consta injection and stress of court hearing and dental visit. Appetite good, with no evidence of dental pain. Patient stating she would like to walk inside the hospital verses outside the hospital. Remains mostly non- verbal, no other concerns. Suicidal Ideation: None Homicidal Ideation: None BHS - Objective Physical Exam Vital Signs Vital Signs Date Time Temp Pulse Resp B/P (MAP) Pulse Ox O2 Delivery O2 Flow Rate FiO2 03/01/18 06:06 97.7 58 88/58 (68) 96 Room Air 02/28/18 05:57 15 Hematology Test 02/13/18 11:16 02/17/18 08:40 02/18/18 06:40 Tuberculin Skin Test 0 mm Urine Color Yellow Urine Clarity Clear Urine pH 6.0 pH (4.8-9.5) Urine Specific [place] 1.014 Urine Protein Negative mg/dL (NEGATIVE) Urine Glucose (UA) Negative mg/dL (NEGATIVE) Urine Ketones Negative mg/dL (NEGATIVE) Urine Blood Negative (NEGATIVE) Urine Nitrite Negative (NEGATIVE) Urine Bilirubin Negative (NEGATIVE) Urine Urobilinogen Negative mg/dL (0.2-1.9) Urine Leukocyte Esterase Negative (NEGATIVE) Urine RBC 1 /HPF (0-2/HPF) Urine WBC 2 /HPF (0-5/HPF) Urine Squamous Epithelial Cells None /LPF (</=FEW) Urine Bacteria Negative /HPF (NONE-FEW) Urine Mucus Few /HPF (NONE-FEW) Red Blood Count 4.07 M/uL (4.17-5.56) Mean Corpuscular Volume 87.8 fL (80.0-96.0) Mean Corpuscular Hemoglobin 30.2 pg (26.0-33.0) Mean Corpuscular Hemoglobin Concent 34.4 g/dL (32.0-36.0) Red Cell Distribution Width 14.6 % (11.5-14.5) Mean Platelet Volume 8.2 fL (7.2-11.1) Neutrophils (%) (Auto) 54.5 % (39.4-72.5) Lymphocytes (%) (Auto) 28.8 % (17.6-49.6) Monocytes (%) (Auto) 9.0 % (4.1-12.4) Eosinophils (%) (Auto) 7.5 % (0.4-6.7) Basophils (%) (Auto) 0.2 % (0.3-1.4) Nucleated RBC Relative Count (auto) 0.0 /100WBC Neutrophils # (Auto) 4.0 K/uL (2.0-7.4) Lymphocytes # (Auto) 2.1 K/uL (1.3-3.6) Monocytes # (Auto) 0.7 K/uL (0.3-1.0) Eosinophils # (Auto) 0.5 K/uL (0.0-0.5) Basophils # (Auto) 0.0 K/uL (0.0-0.1) Nucleated RBC Absolute Count (auto) 0.00 K/uL Sodium Level 141 mmol/L (137-145) Potassium Level 3.6 mmol/L (3.5-5.0) Chloride Level 106 mmol/L (98-107) Carbon Dioxide Level 24 mmol/L (22-31) Blood Urea Nitrogen 9 mg/dl (7-18) Creatinine 0.50 mg/dl (0.52-1.04) Glomerular Filtration Rate Calc > 60.0 Random Glucose 84 mg/dl (75-110) Calcium Level 8.9 mg/dl (8.4-10.2) Total Bilirubin 0.3 mg/dl (0.2-1.3) Aspartate Amino Transf (AST/SGOT) 17 U/L (0-35) Alanine Aminotransferase (ALT/SGPT) 40 U/L (0-56) Alkaline Phosphatase 80 U/L (0-126) Total Protein 5.7 gm/dl (6.3-8.2) Albumin 3.0 g/dl (3.5-5.0) Chemistry Test 02/13/18 11:16 02/17/18 08:40 02/18/18 06:40 Tuberculin Skin Test 0 mm Urine Color Yellow Urine Clarity Clear Urine pH 6.0 pH (4.8-9.5) Urine Specific [place] 1.014 Urine Protein Negative mg/dL (NEGATIVE) Urine Glucose (UA) Negative mg/dL (NEGATIVE) Urine Ketones Negative mg/dL (NEGATIVE) Urine Blood Negative (NEGATIVE) Urine Nitrite Negative (NEGATIVE) Urine Bilirubin Negative (NEGATIVE) Urine Urobilinogen Negative mg/dL (0.2-1.9) Urine Leukocyte Esterase Negative (NEGATIVE) Urine RBC 1 /HPF (0-2/HPF) Urine WBC 2 /HPF (0-5/HPF) Urine Squamous Epithelial Cells None /LPF (</=FEW) Urine Bacteria Negative /HPF (NONE-FEW) Urine Mucus Few /HPF (NONE-FEW) White Blood Count 7.3 k/uL (4.5-11.0) Red Blood Count 4.07 M/uL (4.17-5.56) Hemoglobin 12.3 g/dL (12.0-16.0) Hematocrit 35.7 % (34.0-47.0) Mean Corpuscular Volume 87.8 fL (80.0-96.0) Mean Corpuscular Hemoglobin 30.2 pg (26.0-33.0) Mean Corpuscular Hemoglobin Concent 34.4 g/dL (32.0-36.0) Red Cell Distribution Width 14.6 % (11.5-14.5) Platelet Count 204 K/uL (150-450) Mean Platelet Volume 8.2 fL (7.2-11.1) Neutrophils (%) (Auto) 54.5 % (39.4-72.5) Lymphocytes (%) (Auto) 28.8 % (17.6-49.6) Monocytes (%) (Auto) 9.0 % (4.1-12.4) Eosinophils (%) (Auto) 7.5 % (0.4-6.7) Basophils (%) (Auto) 0.2 % (0.3-1.4) Nucleated RBC Relative Count (auto) 0.0 /100WBC Neutrophils # (Auto) 4.0 K/uL (2.0-7.4) Lymphocytes # (Auto) 2.1 K/uL (1.3-3.6) Monocytes # (Auto) 0.7 K/uL (0.3-1.0) Eosinophils # (Auto) 0.5 K/uL (0.0-0.5) Basophils # (Auto) 0.0 K/uL (0.0-0.1) Nucleated RBC Absolute Count (auto) 0.00 K/uL Glomerular Filtration Rate Calc > 60.0 Calcium Level 8.9 mg/dl (8.4-10.2) Total Bilirubin 0.3 mg/dl (0.2-1.3) Aspartate Amino Transf (AST/SGOT) 17 U/L (0-35) Alanine Aminotransferase (ALT/SGPT) 40 U/L (0-56) Alkaline Phosphatase 80 U/L (0-126) Total Protein 5.7 gm/dl (6.3-8.2) Albumin 3.0 g/dl (3.5-5.0) Urinalysis Test 02/17/18 08:40 Urine Color Yellow Urine Clarity Clear Urine pH 6.0 pH (4.8-9.5) Urine Specific [place] 1.014 Urine Protein Negative mg/dL (NEGATIVE) Urine Glucose (UA) Negative mg/dL (NEGATIVE) Urine Ketones Negative mg/dL (NEGATIVE) Urine Blood Negative (NEGATIVE) Urine Nitrite Negative (NEGATIVE) Urine Bilirubin Negative (NEGATIVE) Urine Urobilinogen Negative mg/dL (0.2-1.9) Urine Leukocyte Esterase Negative (NEGATIVE) Urine RBC 1 /HPF (0-2/HPF) Urine WBC 2 /HPF (0-5/HPF) Urine Squamous Epithelial Cells None /LPF (</=FEW) Urine Bacteria Negative /HPF (NONE-FEW) Urine Mucus Few /HPF (NONE-FEW) Muscle Strength and Tone: WNL Gait and Station: Steady [facility] Medications Reviewed: Side Effects, Benefits of Medication, Risks Allergies Reviewed: Yes Mental Status Exam General Appearance: Casual, Well Groomed, No Good Eye Contact, Cooperative, Polite, Good Interaction, No Unkept, No Tearful, No Psychomotor Agitation, No Psychomotor Retardation, Bizarre Mannerisms, No Tics Speech: Clear, No Normal Volume (very quiet), Delayed Mood: Other (Mood states less apparent in patient presentation related to schizophrenia, patient states "okay") Affect: Calm, Flat, Withdrawn Thought Process: Goal Directed (in some ways), Other (Scarcely verbalized. Does not express rationale for hitting herself.) Thought Content: No Suicidal Ideation, No Homicidal Ideation, No Delusions, Auditory Halllucinations (likely present. ), Other Sensorium: Clear Cognition: Alert & Oriented-Person, Alert & Oriented-Place, Alert & Oriented- Time, No Mthjg-Hmsqthis-Nucismlyf (partially) Memory: Immediate, Recent, Remote Intelligence: Average (historically average) Insight Judgment: Poor (limited by chronic mental illness. ) [facility] Assessment and Plan [id number] Encounter Date: Mar 01, 2018 [id number] Encounter Time: 08:40 BHS Plan: Necessary Precautions, Individual/Group Therapy, Admin/Titrate Meds, Educate Patient Tobacco Medications: Started Multpiple Antipsychotics Used: No Problems: (1) Schizophrenia Status: Chronic Condition 1. continue treatment. 2. likely transport to [facility] next week. Problem Qualifiers (1) Schizophrenia: Schizophrenia type: paranoid schizophrenia Qualified Codes: F20.0 - Paranoid schizophrenia JUMANA KEARNEY MD Mar 01, 2018 09:01
[2018-03-01] MEDS: ACETAMINOPHEN 325 MG TAB PO PRN (21:08)
[2018-03-01 21:10] VITALS: BP 131/88
[2018-03-02 01:27] VITALS: BP 131/97
[2018-03-02] MEDS: DOCUSATE SODIUM 100 MG CAP PO SCH ×2 (08:25→21:30)
[2018-03-02] MEDS: MULTIVITAMINS TAB PO SCH (08:26)
--- NOTE | 2018-03-02 09:36 | BHS Progress Note ---
BHS - Subjective Progress Notes Subjective "I'm going to [place] but you can't smoke there either." States she smoked for 23 years, quit for 15 years then resumed in January States "It's just the urgency, I smoke a pack per day." Sleep sufficient, states eating well Suicidal Ideation: None Homicidal Ideation: None BHS - Objective Physical Exam Vital Signs Current Medications Medications (Trade) Dose Ordered Sig/Marquita Route PRN Reason Start Time Stop Time Status Last Admin Dose Admin Al Hydrox/Mg Hydrox/Simethicone (Maalox(*) 30 ml Udcup (Or Equiv)) 30 ml Q4H PRN PO DYSPEPSIA 02/11/18 19:35 03/13/18 19:34 Multivitamins (Thera-M Enhanced Tab (Or Equiv)) 1 each QDAY PO 02/12/18 09:00 03/14/18 08:59 03/02/18 08:26 Nicotine (Nicoderm Cq 7 Mg/24 Hr (Or Equiv)) 7 mg QDAY TD 02/12/18 09:00 02/12/18 14:56 DC 02/12/18 08:14 Risperidone (Risperdal Consta 50 Mg/2 ml Syr (Patient Own)) 50 mg ONCE ONCE IM 02/14/18 09:00 02/14/18 09:01 DC 02/13/18 12:15 Nicotine (Nicotrol Inhaler 10 Mg/Inh (Or Equiv)) 10 mg Q3H PRN INH NICOTINE REPLACEMENT 02/12/18 14:55 02/17/18 10:06 DC 02/16/18 20:15 Miscellaneous Information (Nicotrol Cartridge) 1 each PRN PRN PO NICOTINE REPLACEMENT 02/12/18 14:55 02/17/18 10:06 DC 02/16/18 16:21 Benzonatate (Tessalon Perles(*) 100 Mg Cap (Or Equiv)) 100 mg TID PRN PO COUGH 02/15/18 02:15 03/17/18 02:14 02/17/18 21:16 Acetaminophen (Tylenol(*)325 Mg Tab (Or Equiv)) 650 mg Q6H PRN PO FEVER/PAIN 02/15/18 06:50 03/17/18 06:49 03/01/18 21:08 Azithromycin (Zithromax(*) 250 Mg Tab (Or Equiv)) 500 mg ONCE ONCE PO 02/15/18 08:00 02/15/18 08:08 DC 02/15/18 08:12 Azithromycin (Zithromax(*) 250 Mg Tab (Or Equiv)) 250 mg QDAY PO 02/16/18 09:00 02/20/18 08:59 DC 02/19/18 08:23 Ibuprofen (Motrin (*) 600 Mg Tab (Or Equiv)) 600 mg Q6H PRN PO PAIN 02/16/18 21:20 03/18/18 21:19 02/18/18 08:21 Nicotine Polacrilex (Nicorette 2 Mg Gum (Or Equiv)) 2 mg Q1-2H PRN PO NICOTINE REPLACEMENT 02/17/18 10:05 03/19/18 10:04 02/24/18 19:32 Docusate Sodium (Colace(*) 100 Mg Cap (Or Equiv)) 100 mg QDAY PO 02/20/18 09:30 02/21/18 09:04 DC 02/21/18 08:19 Docusate Sodium (Colace(*) 100 Mg Cap (Or Equiv)) 100 mg BID PO 02/21/18 21:00 03/22/18 09:29 03/02/18 08:25 Risperidone (RisperDAL CONSTA 25 MG/2 ML KIT (OR EQUIV)) 50 mg ONCE ONCE IM ONLY 02/27/18 09:00 02/27/18 09:01 DC 02/27/18 12:59 Muscle Strength and Tone: WNL Gait and Station: Steady [facility] Medications Reviewed: Side Effects, Benefits of Medication, Risks Allergies Reviewed: Yes Mental Status Exam General Appearance: Casual, Well Groomed, No Good Eye Contact, Cooperative, Polite, Good Interaction, No Unkept, No Tearful, No Psychomotor Agitation, No Psychomotor Retardation, Bizarre Mannerisms, No Tics Speech: Clear, No Normal Volume (very quiet), Delayed Mood: Other (Mood states less apparent in patient presentation related to schizophrenia, patient states "okay") Affect: Calm, Flat, Withdrawn Thought Process: Goal Directed (in some ways), Other (Scarcely verbalized. Does not express rationale for hitting herself.) Thought Content: No Suicidal Ideation, No Homicidal Ideation, No Delusions, Auditory Halllucinations (likely present. ), Other Sensorium: Clear Cognition: Alert & Oriented-Person, Alert & Oriented-Place, Alert & Oriented- Time, No Vsvmb-Djfkdxix-Igvaikxxb (partially) Memory: Immediate, Recent, Remote Intelligence: Average (historically average) Insight Judgment: Poor (limited by chronic mental illness. ) Lab Allergies Coded Allergies citric acid (Unverified Allergy, Intermediate, HIVES, 09/26/17) Sulfa (Sulfonamide Antibiotics) (Verified Allergy, Unknown, 09/26/17) codeine (Unverified Allergy, Unknown, GI DISTRESS, 09/26/17) fluoxetine HCl (Verified Allergy, Unknown, 09/26/17) Imaging Vital Signs Date Time Temp Pulse Resp B/P (MAP) Pulse Ox O2 Delivery O2 Flow Rate FiO2 03/02/18 01:27 98.1 93 131/97 (108) 93 Room Air 02/28/18 05:57 15 S Assessment and Plan [id number] Encounter Date: Mar 02, 2018 Dang-mo-Cxdy Encounter Time: 09:38 BHS Plan: Necessary Precautions, Individual/Group Therapy, Admin/Titrate Meds, Educate Patient Tobacco Medications: Started Multpiple Antipsychotics Used: No Problems: (1) Schizophrenia Status: Chronic Condition Continue current medication and treatment Reports some mouth pain secondary to dental work past week Awaiting transfer to [facility] Problem Qualifiers (1) Schizophrenia: Schizophrenia type: paranoid schizophrenia Qualified Codes: F20.0 - Paranoid schizophrenia GERARDO HUBER NP Mar 02, 2018 09:36
[2018-03-02 17:25] VITALS: BP 112/70
[2018-03-03 06:00] VITALS: BP 106/66
[2018-03-03] MEDS: MULTIVITAMINS TAB PO SCH (08:13)
[2018-03-03] MEDS: DOCUSATE SODIUM 100 MG CAP PO SCH ×2 (08:13→20:57)
--- NOTE | 2018-03-03 09:26 | BHS Progress Note ---
BHS - Subjective Progress Notes Subjective "I'm doing ok." Denies dental pain, reports slept well, ambulating in hallway yesterday and was taken for walk outside of unit yesterday with attempt at going towards outside doors Patient has been committed to the [facility], in order to await eventual transfer to custodial living. Patient denies any complaints, Risperdal Consta injection last week Suicidal Ideation: None Homicidal Ideation: None BHS - Objective Physical Exam Vital Signs Current Medications Medications (Trade) Dose Ordered Sig/Marquita Route PRN Reason Start Time Stop Time Status Last Admin Dose Admin Al Hydrox/Mg Hydrox/Simethicone (Maalox(*) 30 ml Udcup (Or Equiv)) 30 ml Q4H PRN PO DYSPEPSIA 02/11/18 19:35 03/13/18 19:34 Multivitamins (Thera-M Enhanced Tab (Or Equiv)) 1 each QDAY PO 02/12/18 09:00 03/14/18 08:59 03/03/18 08:13 Nicotine (Nicoderm Cq 7 Mg/24 Hr (Or Equiv)) 7 mg QDAY TD 02/12/18 09:00 02/12/18 14:56 DC 02/12/18 08:14 Risperidone (Risperdal Consta 50 Mg/2 ml Syr (Patient Own)) 50 mg ONCE ONCE IM 02/14/18 09:00 02/14/18 09:01 DC 02/13/18 12:15 Nicotine (Nicotrol Inhaler 10 Mg/Inh (Or Equiv)) 10 mg Q3H PRN INH NICOTINE REPLACEMENT 02/12/18 14:55 02/17/18 10:06 DC 02/16/18 20:15 Miscellaneous Information (Nicotrol Cartridge) 1 each PRN PRN PO NICOTINE REPLACEMENT 02/12/18 14:55 02/17/18 10:06 DC 02/16/18 16:21 Benzonatate (Tessalon Perles(*) 100 Mg Cap (Or Equiv)) 100 mg TID PRN PO COUGH 02/15/18 02:15 03/17/18 02:14 02/17/18 21:16 Acetaminophen (Tylenol(*)325 Mg Tab (Or Equiv)) 650 mg Q6H PRN PO FEVER/PAIN 02/15/18 06:50 03/17/18 06:49 03/01/18 21:08 Azithromycin (Zithromax(*) 250 Mg Tab (Or Equiv)) 500 mg ONCE ONCE PO 02/15/18 08:00 02/15/18 08:08 DC 02/15/18 08:12 Azithromycin (Zithromax(*) 250 Mg Tab (Or Equiv)) 250 mg QDAY PO 02/16/18 09:00 02/20/18 08:59 DC 02/19/18 08:23 Ibuprofen (Motrin (*) 600 Mg Tab (Or Equiv)) 600 mg Q6H PRN PO PAIN 02/16/18 21:20 03/18/18 21:19 02/18/18 08:21 Nicotine Polacrilex (Nicorette 2 Mg Gum (Or Equiv)) 2 mg Q1-2H PRN PO NICOTINE REPLACEMENT 02/17/18 10:05 03/19/18 10:04 02/24/18 19:32 Docusate Sodium (Colace(*) 100 Mg Cap (Or Equiv)) 100 mg QDAY PO 02/20/18 09:30 02/21/18 09:04 DC 02/21/18 08:19 Docusate Sodium (Colace(*) 100 Mg Cap (Or Equiv)) 100 mg BID PO 02/21/18 21:00 03/22/18 09:29 03/03/18 08:13 Risperidone (RisperDAL CONSTA 25 MG/2 ML KIT (OR EQUIV)) 50 mg ONCE ONCE IM ONLY 02/27/18 09:00 02/27/18 09:01 DC 02/27/18 12:59 Deferred Allergies Coded Allergies citric acid (Unverified Allergy, Intermediate, HIVES, 09/26/17) Sulfa (Sulfonamide Antibiotics) (Verified Allergy, Unknown, 09/26/17) codeine (Unverified Allergy, Unknown, GI DISTRESS, 09/26/17) fluoxetine HCl (Verified Allergy, Unknown, 09/26/17) Muscle Strength and Tone: WNL Gait and Station: Steady [facility] Medications Reviewed: Side Effects, Benefits of Medication, Risks Allergies Reviewed: Yes Mental Status Exam General Appearance: Casual, Well Groomed, No Good Eye Contact, Cooperative, Polite, Good Interaction, No Unkept, No Tearful, No Psychomotor Agitation, No Psychomotor Retardation, Bizarre Mannerisms, No Tics Speech: Clear, No Normal Volume (very quiet), Delayed Mood: Other (Mood states less apparent in patient presentation related to schizophrenia, patient states "okay") Affect: Calm, Flat, Withdrawn Thought Process: Goal Directed (in some ways), Other (Scarcely verbalized. Does not express rationale for hitting herself.) Thought Content: No Suicidal Ideation, No Homicidal Ideation, No Delusions, Auditory Halllucinations (likely present. ), Other Sensorium: Clear Cognition: Alert & Oriented-Person, Alert & Oriented-Place, Alert & Oriented- Time, No Geanp-Gktfdrou-Wtaxcinhm (partially) Memory: Immediate, Recent, Remote Intelligence: Average (historically average) Insight Judgment: Poor (limited by chronic mental illness. ) Imaging Vital Signs Date Time Temp Pulse Resp B/P (MAP) Pulse Ox O2 Delivery O2 Flow Rate FiO2 03/03/18 06:00 97.5 75 106/66 (79) 94 Room Air 03/02/18 17:25 17 [facility] Assessment and Plan [id number] Encounter Date: Mar 03, 2018 [id number] Encounter Time: 09:24 S Plan: Necessary Precautions, Individual/Group Therapy, Admin/Titrate Meds, Educate Patient Tobacco Medications: Started Multpiple Antipsychotics Used: No Problems: (1) Schizophrenia Status: Chronic Condition Continue current medication and treatment Awaiting transfer to [facility] Problem Qualifiers (1) Schizophrenia: Schizophrenia type: paranoid schizophrenia Qualified Codes: F20.0 - Paranoid schizophrenia GERARDO HUBER NP Mar 03, 2018 09:26
[2018-03-03] MEDS: ACETAMINOPHEN 325 MG TAB PO PRN ×2 (10:21→16:11)
[2018-03-04 05:55] VITALS: BP 98/69
[2018-03-04] MEDS: MULTIVITAMINS TAB PO SCH (08:52)
[2018-03-04] MEDS: DOCUSATE SODIUM 100 MG CAP PO SCH ×2 (08:52→20:17)
--- NOTE | 2018-03-04 10:01 | BHS Progress Note ---
BHS - Subjective Progress Notes Subjective Patient continues to do well through the weekend. No exacerbation of psychosis. No self harm noted. Patient remains quiet, appetite and sleep good. No other concerns today. Will continue to await state hospital transfer. Suicidal Ideation: None Homicidal Ideation: None S - Objective Physical Exam Vital Signs Vital Signs Date Time Temp Pulse Resp B/P (MAP) Pulse Ox O2 Delivery O2 Flow Rate FiO2 03/04/18 05:55 98.5 82 16 98/69 (79) 95 Room Air Hematology Test 02/13/18 11:16 02/17/18 08:40 02/18/18 06:40 Tuberculin Skin Test 0 mm Urine Color Yellow Urine Clarity Clear Urine pH 6.0 pH (4.8-9.5) Urine Specific [place] 1.014 Urine Protein Negative mg/dL (NEGATIVE) Urine Glucose (UA) Negative mg/dL (NEGATIVE) Urine Ketones Negative mg/dL (NEGATIVE) Urine Blood Negative (NEGATIVE) Urine Nitrite Negative (NEGATIVE) Urine Bilirubin Negative (NEGATIVE) Urine Urobilinogen Negative mg/dL (0.2-1.9) Urine Leukocyte Esterase Negative (NEGATIVE) Urine RBC 1 /HPF (0-2/HPF) Urine WBC 2 /HPF (0-5/HPF) Urine Squamous Epithelial Cells None /LPF (</=FEW) Urine Bacteria Negative /HPF (NONE-FEW) Urine Mucus Few /HPF (NONE-FEW) Red Blood Count 4.07 M/uL (4.17-5.56) Mean Corpuscular Volume 87.8 fL (80.0-96.0) Mean Corpuscular Hemoglobin 30.2 pg (26.0-33.0) Mean Corpuscular Hemoglobin Concent 34.4 g/dL (32.0-36.0) Red Cell Distribution Width 14.6 % (11.5-14.5) Mean Platelet Volume 8.2 fL (7.2-11.1) Neutrophils (%) (Auto) 54.5 % (39.4-72.5) Lymphocytes (%) (Auto) 28.8 % (17.6-49.6) Monocytes (%) (Auto) 9.0 % (4.1-12.4) Eosinophils (%) (Auto) 7.5 % (0.4-6.7) Basophils (%) (Auto) 0.2 % (0.3-1.4) Nucleated RBC Relative Count (auto) 0.0 /100WBC Neutrophils # (Auto) 4.0 K/uL (2.0-7.4) Lymphocytes # (Auto) 2.1 K/uL (1.3-3.6) Monocytes # (Auto) 0.7 K/uL (0.3-1.0) Eosinophils # (Auto) 0.5 K/uL (0.0-0.5) Basophils # (Auto) 0.0 K/uL (0.0-0.1) Nucleated RBC Absolute Count (auto) 0.00 K/uL Sodium Level 141 mmol/L (137-145) Potassium Level 3.6 mmol/L (3.5-5.0) Chloride Level 106 mmol/L (98-107) Carbon Dioxide Level 24 mmol/L (22-31) Blood Urea Nitrogen 9 mg/dl (7-18) Creatinine 0.50 mg/dl (0.52-1.04) Glomerular Filtration Rate Calc > 60.0 Random Glucose 84 mg/dl (75-110) Calcium Level 8.9 mg/dl (8.4-10.2) Total Bilirubin 0.3 mg/dl (0.2-1.3) Aspartate Amino Transf (AST/SGOT) 17 U/L (0-35) Alanine Aminotransferase (ALT/SGPT) 40 U/L (0-56) Alkaline Phosphatase 80 U/L (0-126) Total Protein 5.7 gm/dl (6.3-8.2) Albumin 3.0 g/dl (3.5-5.0) Chemistry Test 02/13/18 11:16 02/17/18 08:40 02/18/18 06:40 Tuberculin Skin Test 0 mm Urine Color Yellow Urine Clarity Clear Urine pH 6.0 pH (4.8-9.5) Urine Specific [place] 1.014 Urine Protein Negative mg/dL (NEGATIVE) Urine Glucose (UA) Negative mg/dL (NEGATIVE) Urine Ketones Negative mg/dL (NEGATIVE) Urine Blood Negative (NEGATIVE) Urine Nitrite Negative (NEGATIVE) Urine Bilirubin Negative (NEGATIVE) Urine Urobilinogen Negative mg/dL (0.2-1.9) Urine Leukocyte Esterase Negative (NEGATIVE) Urine RBC 1 /HPF (0-2/HPF) Urine WBC 2 /HPF (0-5/HPF) Urine Squamous Epithelial Cells None /LPF (</=FEW) Urine Bacteria Negative /HPF (NONE-FEW) Urine Mucus Few /HPF (NONE-FEW) White Blood Count 7.3 k/uL (4.5-11.0) Red Blood Count 4.07 M/uL (4.17-5.56) Hemoglobin 12.3 g/dL (12.0-16.0) Hematocrit 35.7 % (34.0-47.0) Mean Corpuscular Volume 87.8 fL (80.0-96.0) Mean Corpuscular Hemoglobin 30.2 pg (26.0-33.0) Mean Corpuscular Hemoglobin Concent 34.4 g/dL (32.0-36.0) Red Cell Distribution Width 14.6 % (11.5-14.5) Platelet Count 204 K/uL (150-450) Mean Platelet Volume 8.2 fL (7.2-11.1) Neutrophils (%) (Auto) 54.5 % (39.4-72.5) Lymphocytes (%) (Auto) 28.8 % (17.6-49.6) Monocytes (%) (Auto) 9.0 % (4.1-12.4) Eosinophils (%) (Auto) 7.5 % (0.4-6.7) Basophils (%) (Auto) 0.2 % (0.3-1.4) Nucleated RBC Relative Count (auto) 0.0 /100WBC Neutrophils # (Auto) 4.0 K/uL (2.0-7.4) Lymphocytes # (Auto) 2.1 K/uL (1.3-3.6) Monocytes # (Auto) 0.7 K/uL (0.3-1.0) Eosinophils # (Auto) 0.5 K/uL (0.0-0.5) Basophils # (Auto) 0.0 K/uL (0.0-0.1) Nucleated RBC Absolute Count (auto) 0.00 K/uL Glomerular Filtration Rate Calc > 60.0 Calcium Level 8.9 mg/dl (8.4-10.2) Total Bilirubin 0.3 mg/dl (0.2-1.3) Aspartate Amino Transf (AST/SGOT) 17 U/L (0-35) Alanine Aminotransferase (ALT/SGPT) 40 U/L (0-56) Alkaline Phosphatase 80 U/L (0-126) Total Protein 5.7 gm/dl (6.3-8.2) Albumin 3.0 g/dl (3.5-5.0) Urinalysis Test 02/17/18 08:40 Urine Color Yellow Urine Clarity Clear Urine pH 6.0 pH (4.8-9.5) Urine Specific [place] 1.014 Urine Protein Negative mg/dL (NEGATIVE) Urine Glucose (UA) Negative mg/dL (NEGATIVE) Urine Ketones Negative mg/dL (NEGATIVE) Urine Blood Negative (NEGATIVE) Urine Nitrite Negative (NEGATIVE) Urine Bilirubin Negative (NEGATIVE) Urine Urobilinogen Negative mg/dL (0.2-1.9) Urine Leukocyte Esterase Negative (NEGATIVE) Urine RBC 1 /HPF (0-2/HPF) Urine WBC 2 /HPF (0-5/HPF) Urine Squamous Epithelial Cells None /LPF (</=FEW) Urine Bacteria Negative /HPF (NONE-FEW) Urine Mucus Few /HPF (NONE-FEW) Muscle Strength and Tone: WNL Gait and Station: Steady [facility] Medications Reviewed: Side Effects, Benefits of Medication, Risks Allergies Reviewed: Yes Mental Status Exam General Appearance: Casual, Well Groomed, No Good Eye Contact, Cooperative, Polite, Good Interaction, No Unkept, No Tearful, No Psychomotor Agitation, No Psychomotor Retardation, Bizarre Mannerisms, No Tics Speech: Clear, No Normal Volume (very quiet), Delayed Mood: Other (Mood states less apparent in patient presentation related to schizophrenia, patient states "okay") Affect: Calm, Flat, Withdrawn Thought Process: Goal Directed (in some ways), Other (Scarcely verbalized. Does not express rationale for hitting herself.) Thought Content: No Suicidal Ideation, No Homicidal Ideation, No Delusions, Auditory Halllucinations (likely present. ), Other Sensorium: Clear Cognition: Alert & Oriented-Person, Alert & Oriented-Place, Alert & Oriented- Time, No Wamdn-Lvhdllhh-Kqtiddclg (partially) Memory: Immediate, Recent, Remote Intelligence: Average (historically average) Insight Judgment: Poor (limited by chronic mental illness. ) [facility] Assessment and Plan [id number] Encounter Date: Mar 04, 2018 Sywt-ri-Godf Encounter Time: 08:40 [facility] Plan: Necessary Precautions, Individual/Group Therapy, Admin/Titrate Meds, Educate Patient Tobacco Medications: Started Multpiple Antipsychotics Used: No Problems: (1) Schizophrenia Status: Chronic Condition 1. continue treatment. 2. [facility] Problem Qualifiers (1) Schizophrenia: Schizophrenia type: paranoid schizophrenia Qualified Codes: F20.0 - Paranoid schizophrenia JUMANA KEARNEY MD Mar 04, 2018 10:00
[2018-03-04] MEDS ORDERED: NICOTINE CARTRIDGE 1 EA PO PRN (10:50)
[2018-03-05 06:40] VITALS: BP 98/69
[2018-03-05] MEDS: MULTIVITAMINS TAB PO SCH (08:14)
[2018-03-05] MEDS: DOCUSATE SODIUM 100 MG CAP PO SCH ×2 (08:14→20:40)
--- NOTE | 2018-03-05 13:06 | BHS Progress Note ---
[facility] - Subjective Progress Notes Subjective Patient continues to be calm and cooperative on the unit, interacting well, with no complaints. Still awaiting court papers to allow for transfer. No other concerns today. Suicidal Ideation: None Homicidal Ideation: None [facility] - Objective Physical Exam Vital Signs Hematology Test 02/13/18 11:16 02/17/18 08:40 02/18/18 06:40 Tuberculin Skin Test 0 mm Urine Color Yellow Urine Clarity Clear Urine pH 6.0 pH (4.8-9.5) Urine Specific Niles 1.014 Urine Protein Negative mg/dL (NEGATIVE) Urine Glucose (UA) Negative mg/dL (NEGATIVE) Urine Ketones Negative mg/dL (NEGATIVE) Urine Blood Negative (NEGATIVE) Urine Nitrite Negative (NEGATIVE) Urine Bilirubin Negative (NEGATIVE) Urine Urobilinogen Negative mg/dL (0.2-1.9) Urine Leukocyte Esterase Negative (NEGATIVE) Urine RBC 1 /HPF (0-2/HPF) Urine WBC 2 /HPF (0-5/HPF) Urine Squamous Epithelial Cells None /LPF (</=FEW) Urine Bacteria Negative /HPF (NONE-FEW) Urine Mucus Few /HPF (NONE-FEW) Red Blood Count 4.07 M/uL (4.17-5.56) Mean Corpuscular Volume 87.8 fL (80.0-96.0) Mean Corpuscular Hemoglobin 30.2 pg (26.0-33.0) Mean Corpuscular Hemoglobin Concent 34.4 g/dL (32.0-36.0) Red Cell Distribution Width 14.6 % (11.5-14.5) Mean Platelet Volume 8.2 fL (7.2-11.1) Neutrophils (%) (Auto) 54.5 % (39.4-72.5) Lymphocytes (%) (Auto) 28.8 % (17.6-49.6) Monocytes (%) (Auto) 9.0 % (4.1-12.4) Eosinophils (%) (Auto) 7.5 % (0.4-6.7) Basophils (%) (Auto) 0.2 % (0.3-1.4) Nucleated RBC Relative Count (auto) 0.0 /100WBC Neutrophils # (Auto) 4.0 K/uL (2.0-7.4) Lymphocytes # (Auto) 2.1 K/uL (1.3-3.6) Monocytes # (Auto) 0.7 K/uL (0.3-1.0) Eosinophils # (Auto) 0.5 K/uL (0.0-0.5) Basophils # (Auto) 0.0 K/uL (0.0-0.1) Nucleated RBC Absolute Count (auto) 0.00 K/uL Sodium Level 141 mmol/L (137-145) Potassium Level 3.6 mmol/L (3.5-5.0) Chloride Level 106 mmol/L (98-107) Carbon Dioxide Level 24 mmol/L (22-31) Blood Urea Nitrogen 9 mg/dl (7-18) Creatinine 0.50 mg/dl (0.52-1.04) Glomerular Filtration Rate Calc > 60.0 Random Glucose 84 mg/dl (75-110) Calcium Level 8.9 mg/dl (8.4-10.2) Total Bilirubin 0.3 mg/dl (0.2-1.3) Aspartate Amino Transf (AST/SGOT) 17 U/L (0-35) Alanine Aminotransferase (ALT/SGPT) 40 U/L (0-56) Alkaline Phosphatase 80 U/L (0-126) Total Protein 5.7 gm/dl (6.3-8.2) Albumin 3.0 g/dl (3.5-5.0) Chemistry Test 02/13/18 11:16 02/17/18 08:40 02/18/18 06:40 Tuberculin Skin Test 0 mm Urine Color Yellow Urine Clarity Clear Urine pH 6.0 pH (4.8-9.5) Urine Specific Niles 1.014 Urine Protein Negative mg/dL (NEGATIVE) Urine Glucose (UA) Negative mg/dL (NEGATIVE) Urine Ketones Negative mg/dL (NEGATIVE) Urine Blood Negative (NEGATIVE) Urine Nitrite Negative (NEGATIVE) Urine Bilirubin Negative (NEGATIVE) Urine Urobilinogen Negative mg/dL (0.2-1.9) Urine Leukocyte Esterase Negative (NEGATIVE) Urine RBC 1 /HPF (0-2/HPF) Urine WBC 2 /HPF (0-5/HPF) Urine Squamous Epithelial Cells None /LPF (</=FEW) Urine Bacteria Negative /HPF (NONE-FEW) Urine Mucus Few /HPF (NONE-FEW) White Blood Count 7.3 k/uL (4.5-11.0) Red Blood Count 4.07 M/uL (4.17-5.56) Hemoglobin 12.3 g/dL (12.0-16.0) Hematocrit 35.7 % (34.0-47.0) Mean Corpuscular Volume 87.8 fL (80.0-96.0) Mean Corpuscular Hemoglobin 30.2 pg (26.0-33.0) Mean Corpuscular Hemoglobin Concent 34.4 g/dL (32.0-36.0) Red Cell Distribution Width 14.6 % (11.5-14.5) Platelet Count 204 K/uL (150-450) Mean Platelet Volume 8.2 fL (7.2-11.1) Neutrophils (%) (Auto) 54.5 % (39.4-72.5) Lymphocytes (%) (Auto) 28.8 % (17.6-49.6) Monocytes (%) (Auto) 9.0 % (4.1-12.4) Eosinophils (%) (Auto) 7.5 % (0.4-6.7) Basophils (%) (Auto) 0.2 % (0.3-1.4) Nucleated RBC Relative Count (auto) 0.0 /100WBC Neutrophils # (Auto) 4.0 K/uL (2.0-7.4) Lymphocytes # (Auto) 2.1 K/uL (1.3-3.6) Monocytes # (Auto) 0.7 K/uL (0.3-1.0) Eosinophils # (Auto) 0.5 K/uL (0.0-0.5) Basophils # (Auto) 0.0 K/uL (0.0-0.1) Nucleated RBC Absolute Count (auto) 0.00 K/uL Glomerular Filtration Rate Calc > 60.0 Calcium Level 8.9 mg/dl (8.4-10.2) Total Bilirubin 0.3 mg/dl (0.2-1.3) Aspartate Amino Transf (AST/SGOT) 17 U/L (0-35) Alanine Aminotransferase (ALT/SGPT) 40 U/L (0-56) Alkaline Phosphatase 80 U/L (0-126) Total Protein 5.7 gm/dl (6.3-8.2) Albumin 3.0 g/dl (3.5-5.0) Urinalysis Test 02/17/18 08:40 Urine Color Yellow Urine Clarity Clear Urine pH 6.0 pH (4.8-9.5) Urine Specific Niles 1.014 Urine Protein Negative mg/dL (NEGATIVE) Urine Glucose (UA) Negative mg/dL (NEGATIVE) Urine Ketones Negative mg/dL (NEGATIVE) Urine Blood Negative (NEGATIVE) Urine Nitrite Negative (NEGATIVE) Urine Bilirubin Negative (NEGATIVE) Urine Urobilinogen Negative mg/dL (0.2-1.9) Urine Leukocyte Esterase Negative (NEGATIVE) Urine RBC 1 /HPF (0-2/HPF) Urine WBC 2 /HPF (0-5/HPF) Urine Squamous Epithelial Cells None /LPF (</=FEW) Urine Bacteria Negative /HPF (NONE-FEW) Urine Mucus Few /HPF (NONE-FEW) Muscle Strength and Tone: WNL Gait and Station: Steady [facility] Medications Reviewed: Side Effects, Benefits of Medication, Risks Allergies Reviewed: Yes Mental Status Exam General Appearance: Casual, Well Groomed, No Good Eye Contact, Cooperative, Polite, Good Interaction, No Unkept, No Tearful, No Psychomotor Agitation, No Psychomotor Retardation, Bizarre Mannerisms, No Tics Speech: Clear, No Normal Volume (very quiet), Delayed Mood: Other (Mood states less apparent in patient presentation related to schizophrenia, patient states "okay") Affect: Calm, Flat, Withdrawn Thought Process: Goal Directed (in some ways), Other (Scarcely verbalized. Does not express rationale for hitting herself.) Thought Content: No Suicidal Ideation, No Homicidal Ideation, No Delusions, Auditory Halllucinations (likely present. ), Other Sensorium: Clear Cognition: Alert & Oriented-Person, Alert & Oriented-Place, Alert & Oriented- Time, No [id number] (partially) Memory: Immediate, Recent, Remote Intelligence: Average (historically average) Insight Judgment: Poor (limited by chronic mental illness. ) [facility] Assessment and Plan [id number] Encounter Date: Mar 05, 2018 [id number] Encounter Time: 08:40 [facility] Plan: Necessary Precautions, Individual/Group Therapy, Admin/Titrate Meds, Educate Patient Tobacco Medications: Started Multpiple Antipsychotics Used: No Problems: (1) Schizophrenia Status: Chronic Condition 1. continue treatment. 2. [address] paperwork to allow transfer to [facility]. Problem Qualifiers (1) Schizophrenia: Schizophrenia type: paranoid schizophrenia Qualified Codes: F20.0 - Paranoid schizophrenia JUMANA KEARNEY MD Mar 05, 2018 13:05
[2018-03-06 06:02] VITALS: BP 95/68
[2018-03-06] MEDS: DOCUSATE SODIUM 100 MG CAP PO SCH (08:37)
[2018-03-06] MEDS: MULTIVITAMINS TAB PO SCH (08:37)
[2018-03-06] MEDS ORDERED: DOCU-416 PO (08:52)
[2018-03-06] MEDS ORDERED: MULT-1379 PO (08:53)
[2018-03-06] MEDS ORDERED: ACET-2031 PO (08:55)
--- NOTE | 2018-03-07 09:50 | TRANSFER SUMMARY ---
DATE OF ADMISSION: February 11, 2018 DATE OF DISCHARGE: March 06, 2018 ATTENDING PHYSICIAN: Houston Ponce M.D. The patient was seen at approximately 08:40 hours for note concerning this dictation on the a.m. of March 06, 2018. FINAL DIAGNOSIS Schizophrenia. LIMITATIONS OF ILLNESS The patient has guardian in place with that being her brother. REASON FOR ADMISSION This is a very well-known 52-year-old female well-known to the [facility] in general. The patient has a long history of living in [place], a long history of chronic persisting mental illness, specifically schizophrenia. Prior to admission, the patient was seen walking on the street as she normally does in the [facility]. The patient was witnessed by law enforcement, who were called for a welfare check, to be hitting herself as she walking about the face. The patient was also found to be intoxicated with alcohol. At time of admission, the patient was brought to the emergency room. Again, patient has guardian in place. The patient was evaluated in the emergency room for any acute injury before being transferred to Behavioral Health Unit. Once on the unit, the patient was very cooperative. No evidence of further abuse of self or self-harm of any kind nor aggression towards staff was seen. Since last discharge from Behavioral Health in September 2017, efforts were put in place to allow patient to continue her ambulation around [facility] in a safe manner. However , even with additional efforts in place the patient continued to have exacerbation of psychosis as evidenced by punching herself in the face while walking and now patient has taken up drinking alcohol and recently had notably restarted a smoking habit, which she had abandoned many years ago. Additionally , it is known that patient had recently increased her Risperdal Consta shot, which she was compliant with through [facility]. The patient was continued on Risperdal Consta shot at same dose every two weeks 50 mg and while in structured living the patient gave no signs of distress of being in structured living and was very cooperative with staff and other patients. Again , patient exhibited no further evidence of exacerbation of psychosis with no self-harm while in the unit. The patient was also notably able to participate in multiple walks outside the unit, accompanied by staff and would return without prompting. The patient was able to attend to ADLs as well. After long examination of this patient, it was thought that patient would best benefit now from continued structured living as the least restrictive environment for her care. The patient was transferred to [facility] to await placement in long-term structured living environment. EXAMINATION/PHYSICAL EXAM Please see emergency room note. Notable for a 52-year-old female with excoriations and contusions about the face that were self-inflicted in nature. Vital signs at time of admission: Temperature 99.9, respiratory rate 14, blood pressure 133/88, pulse oximetry 94% on room air. Vital signs at time of transfer to [facility]: Temperature 98.0, pulse 67, respiratory rate 16, blood pressure 95/68, pulse oximetry 95% on room air. Most recent CBC on February 18, 2018 was overall unremarkable. Chemistry panel on February 18, 2018 was unremarkable as well. Urinalysis was unremarkable on February 17, 2018. PPD was nonreactive. At time of admission, patient had a negative toxicology screen for illicit substances with a serum alcohol level of 94. Negative screen and TSH slightly low at 0.38. MENTAL STATUS EXAM/GENERAL APPEARANCE/BEHAVIOR AND ATTITUDE At time of transfer to [facility], this is a cooperative 52-year- old female suffering from chronic persisting mental illness. The patient is giving limited verbalizations. The patient's concern was if she would be able to smoke at the [facility]. Other than that, the patient understood transfer to [facility] and was cooperative with process. The patient is making limited eye contact, which is baseline for this individual. Baseline auditory hallucinations likely remain. However, patient again is very limited in her communication skills. Speech: Significant poverty of speech noted in this patient. Mood: Patient is smiling briefly, stating mood was okay. Affect: Constricted, flat, mood congruent and consistent with chronic persisting mental illness. Thought processes: No gross flight of idea or loose associations could be detected. The patient indicated an understanding of going to the [facility]. Thought content: Likely auditory hallucinations remain to some degree but do not seem to be having an exacerbation above baseline at this time. Thought broadcasting ideas of reference: Difficult to determine in this patient. No obvious obsessions or compulsions and patient not indicating any self-harm or aggression towards staff throughout her stay. Sensorium did appear clear. Cognition was alert and oriented to person, place, time and partially at least to situation. Memory: Immediate recent remote historically estimated to be intact. Intelligence historically average based on interview and previous knowledge of this patient. Insight and judgment remain limited due to chronic persisting mental illness. RESULTS OF TESTING/IMAGING Chest x-ray on February 15, 2018 did show mild pulmonary edema and possible small pleural effusion. Bibasilar consolidation, atelectasis, possibly chronic in nature and chronic hyperexpansion and bronchitic changes were noted on chest x- ray. Indication for this imaging was hypoxia and cough at the time. This did seem to resolve completely by time of discharge and no clinical evidence of ongoing pulmonary issues of any kind existed at time of discharge. LABORATORY DATA See above. CONSULTATIONS None. TREATMENT The patient received medication and participated in individual and group therapy to the best of her ability. HOSPITAL COURSE Again, the patient was admitted. Signs of upper respiratory infection and bronchitis did exist. This was treated successfully and resolved. The patient was continued on Risperdal Consta at 50 mg every two weeks. No further exacerbation of psychosis that preceded admission was noted. The patient did seem to be somewhat lethargic after administration of Risperdal Consta injection for the first few days. It is the opinion of this provider that if patient does get moved into structured living she would be compliant with oral medications given daily, thus being able to avoid inconsistent levels of Risperdal associated with Consta shot as well as avoid any injection site risk. CONDITION OF PATIENT ON DISCHARGE Appropriate for transfer via [facility] staff to the [facility] to continue to look for appropriate structured living environment. DISPOSITION Discharge to the [facility], accompanied by staff. The patient would follow up there for continued treatment. While on the Behavioral Health Unit, the patient did have a previously scheduled routine dental appointment. Please see records. The patient had one cavity filled as well as one tooth extraction. The patient did not exhibit any signs of significant sequelae following this procedure and was able to consume food and chew naturally. Again , recommendation of this provider to consider switch to oral Risperdal if patient will continue living in structured living as patient has no difficulty being compliant with oral medications. This, again, would be in an effort to avoid any injection site risk and maintain more constant levels of antipsychotic administration. The patient could take multivitamin with minerals daily, Colace 100 mg daily. The patient could use ibuprofen or acetaminophen for pain as directed and patient would continue Risperdal Consta shot for now at 50 mg IM every two weeks. Next injection due on March 13, 2018. The patient would follow up with dental care as required. The risks, benefits and alternatives of above transfer plan were discussed. Inform consent was given to proceed with above transfer plan by this patient, patient' s guardian brother and [facility] staff. SUSAN
== END 2018-03-06 10:18 | DRG 885 ==
LOC: BHS 19:08
PROVIDERS: ADMIT Psychiatry & Neurology Psychiatry; ATTEND Psychiatry & Neurology Psychiatry
DX: F20.0 Paranoid schizophrenia (principal); S00.81XA Abrasion of other part of head, initial encounter; F17.210 Nicotine dependence, cigarettes, uncomplicated; F10.920 Alcohol use, unspecified with intoxication, uncomplicated; J06.9 Acute upper respiratory infection, unspecified; R09.02 Hypoxemia; X83.8XXA Intentional self-harm by other specified means, initial encounter; Z91.5 Personal history of self-harm; Z81.1 Family history of alcohol abuse and dependence; Z81.8 Family history of other mental and behavioral disorders; Z88.2 Allergy status to sulfonamides; Z88.8 Allergy status to other drugs, medicaments and biological substances
CPT/HCPCS: 36415; 71045; 81001; 82040; 82247; 82310; 82374; 82435; 82565; 82947; 84075; 84132; 84155; 84295; 84450; 84460; 84520; 85025; 86580; 93005

== ENCOUNTER → 2018-02-11 | Outpatient (CLI) | payer BC ==
[2016-04-22 11:17] VITALS: BMI 19.5
== END ==
LOC: AMB 17:16
PROVIDERS: ATTEND Nurse Practitioner
DX: F99 Mental disorder, not otherwise specified (principal)
CPT/HCPCS: A0425; A0429